=== PATIENT | female | born 1940 | race Caucasian/White ===

== ENCOUNTER 2021-03-31 11:07 | Inpatient (IN) | payer MEDICARE, SELFPAY ==
[2021-03-31] VITALS (54 sets, daily range): BP systolic 53–182; BP diastolic 38–105; PULSE 59–179; RESP 16–36; TEMP 37.1–37.3; O2SAT 83–100; BMI 27.4
--- NOTE | 2021-03-31 11:08 | ECG_ITS ---
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 Measurements Intervals [place] Rate: 178 P: OK: QRS: -48 QRSD: 124 T: 130 QT: 283 QTc: 488 Interpretive Statements ATRIAL FIBRILLATION WITH RAPID VENTRICULAR RESPONSE POSSIBLE RIGHT VENTRICULAR CONDUCTION DELAY [RSR (QR) IN V1/V2] LEFT ANTERIOR FASCICULAR BLOCK [QRS AXIS <= -45, QR IN I, RS IN II] POSSIBLE LEFT VENTRICULAR HYPERTROPHY [VOLTAGE CRITERIA PLUS LAE OR QRS WIDENING] PROBABLE LATERAL MYOCARDIAL INFARCTION , OF INDETERMINATE AGE [35 ms Q WAVE IN I/aVL/V5/V6] CRITICAL TEST RESULT No previous ECG available for comparison Electronically Signed On 03-31-2021 18:07:07 LOST CHARGE CARD CLERK by Marquise Horan M.D. [id number]
--- NOTE | 2021-03-31 11:23 | CTR_ITS ---
PROCEDURE INFORMATION: Exam: CT Head Without Contrast Exam date and time: 03/31/2021 11:23 AM Age: 80 years old Clinical indication: Altered mental status/memory loss; Patient HX: AMS TECHNIQUE: Imaging protocol: Computed tomography of the head without contrast. Radiation optimization: All CT scans at this facility use at least one of these dose optimization techniques: automated exposure control; mA and/or kV adjustment per patient size (includes targeted exams where dose is matched to clinical indication); or iterative reconstruction. COMPARISON: No relevant prior studies available. RADIATION DOSE METRICS: Total DLP (mGy-cm): 981.47 FINDINGS: Brain: No hemorrhage. Moderate diffuse cerebral atrophy. This appears particularly advanced within the hippocampal regions. No significant white matter disease. No mass effect. Cerebral ventricles: No ventriculomegaly. Paranasal sinuses: Opacified right maxillary sinus and sphenoid sinuses. Fluid levels in the left maxillary sinus and ethmoid sinuses. Mastoid air cells: Trace bilateral mastoid effusions. Bones/joints: Unremarkable. No acute fracture. Soft tissues: Unremarkable. CT/CT head wo con* [id number] IMPRESSION: 1. No acute intracranial abnormality. 2. Moderate diffuse cerebral atrophy. This appears particularly advanced within the hippocampal regions as is typically seen with dementia. 3. Multifocal sinusitis. 4. Trace bilateral mastoid effusions.
--- NOTE | 2021-03-31 11:23 | XR_ITS ---
WS: [id number] CHEST XRAY TECHNIQUE: Portable chest. CLINICAL INFORMATION: dyspnea COMPARISON: None. FINDINGS: Heart: Cardiomegaly. Aortic calcification. Cardiac pacer. Lungs: Patchy diffuse bilateral pulmonary infiltrates . No significant pleural fluid. Bones: Normal visualized bony structures. XR/XR chest 1V portable [id number] IMPRESSION: 1. Cardiomegaly. 2. Patchy diffuse bilateral pulmonary infiltrates. Recommend Correlation for p neumonia.
[2021-03-31 11:47] LABS: ABG PCO2 37.7 mmHg (35-45); ABG PH Result 7.41 (7.35-7.45); Alveolar-Arterial Oxygen Gradi 4.3 mmHg (5-10); Arterial Blood Gas Hematocrit 39.9 % (37-47); Base Excess ABG -0.3 mmol/L (-2.0-2.0); Blood Gas Allen Test Pos; Blood Gas Operator Identificat ED; Blood Gas Sample Site Radial, left; Blood Gas Sample Type Arterial; HCO3 ABG 24.1 mmol/L (22-26); HGB O2 Sat 92.5 % (95-100); Ionized Calcium Level - ABG 1.3 mmol/L (1.1-1.4); Methemoglobin 0.8 % (0.4-1.5); Oxygen Device SIMPLE MASK; Oxygen Saturation ABG 94.2; PO2 ABG 70.5 mmHg (80.0-100.0); Potassium Level - ABG 3.5 mmol/L (3.5-5.0)
--- NOTE | 2021-03-31 12:01 | ED_ITS ---
HPI - General Adult General: Chief complaint: Arrhythmia/Palpitations Stated complaint: AFIB WITH RVR Time Seen by Provider: 03/31/21 11:08 History of Present Illness: 80F w/ hx of dementia, afib, positive covid test 1 week ago, full code presenting to the ED with respiratory distress and fast heart rate emergency room. Per EMS, patient was noted to be in A. fib with RVR today and satting at 78 to 79% on room air. Patient was then started on oxygen. In the emergency room patient was placed on 6 L of oxygen and is noted to be in afib with RVR to the 150s. Rest of history limited in cognitive status. Onset:Unknown Duration:ongoing Location:home Severity:severe Associated symptoms: Reports dyspnea Review of Systems General: Reports: ROS unobtainable due to mental status Card: Reports: other (tachycardia) Resp: Reports: dyspnea [facility] ED PFSH: Medical History Atrial fibrillation Dementia Pneumonia due to COVID-19 virus Social History Smoking and tobacco status: never smoked Alcohol intake: never Substance/Drug Use: never Physical Exam HENMT: COMMON NORMALS: atraumatic HEAD & SCALP: atraumatic MOUTH: moist mucous membranes abnormal Eye: COMMON NORMALS: EOMs intact bilaterally and conjunctivae normal CONJUNCTIVA: Yes conjunctivae normal Neck/C-Spine: COMMON NORMALS: full ROM and supple Resp: AUSCULTATION: other (coarse breath sounds) OTHER: +Coarse breath sounds bilaterally, mild increased work of breathing Cardio: RATE: Other (irregular irregular tachycardia) GI: COMMON NORMALS: Soft to palpation and non-tender PALPATION: Yes Soft to palpation Extremity: COMMON NORMALS: full ROM Neuro: SENSORIUM/ORIENTATION: Yes Orientation impaired and Yes somnolent OTHER: GCS of 11, unable to assess neuro exam given altered mental status, arousable to sternal rub, not following commands Psych: OTHER: Unable to assess due to alterd mental status Course Vital Signs: Vital signs: Vital Signs Temperature 99.2 F 03/31/21 11:12 Pulse Rate 144 H 03/31/21 14:30 Respiratory Rate 22 H 03/31/21 12:19 Blood Pressure 102/78 03/31/21 14:30 Pulse Oximetry 88 L 03/31/21 14:30 MDM - General Adult Medical Decision Making 80-year-old female with history of COVID x1 week presenting to the emergency room with A. fib RVR and hypoxemic respiratory distress. On arrival, patient is noted to have coarse breath sounds bilaterally with mild retraction. Patient satting at 94% on 6 L of oxygen. Patient's heart rate was noted to be in the 160s to 180s initially. Patient received 50 mg of metoprolol IV, 1 L of IVF, 2g of magnesium, 6mg of Decadron, 200mg of remdesivir with significant improvement in symptoms. Currently on esmolol drip. Heart rate improved to the 120s to 130s. Pressure appears to be well maintained. Patient continues to be maintaining well on 7 L of oxygen satting at 92-95%. Patient was found to be uremic with BUN of 96 with Cr of 2.1 Patient will be admitted to hospital for hypoxemic respiratory distress, uremic encelopathy, and atrial fibrillation with RVR. Disposition: admission Lab Data : 03/31/21 11:42 03/31/21 11:42 Radiology Impressions Chest X-Ray 03/31/21 11:23 IMPRESSION: 1. Cardiomegaly. 2. Patchy diffuse bilateral pulmonary infiltrates. Recommend Correlation for pneumonia. Laboratory Results WBC 10.8 10^3/uL (4.0-10.0) H 03/31/21 11:42 RBC 4.47 10^6/uL (4.1-5.3) 03/31/21 11:42 Hgb 12.7 g/dL (11.5-15.3) 03/31/21 11:42 Hct 43.0 % (37.0-47.0) 03/31/21 11:42 MCV 96.2 fl (81-99) 03/31/21 11:42 MCH 28.4 pg (28.0-34.0) 03/31/21 11:42 MCHC 29.5 g/dL (30.0-36.0) L 03/31/21 11:42 RDW 15.2 % (12.1-15.1) H 03/31/21 11:42 Plt Count 198 10^3/cmm (130-400) 03/31/21 11:42 MPV 14.2 fL (7.4-10.4) H 03/31/21 11:42 Neut % (Auto) 93.0 % 03/31/21 11:42 Lymph % (Auto) 4.7 % 03/31/21 11:42 [place] % (Auto) 1.2 % 03/31/21 11:42 Eos % (Auto) 0.1 % 03/31/21 11:42 Baso % (Auto) 0.1 % 03/31/21 11:42 Neut # (Auto) 10.06 10^3/uL (1.8-7.7) H 03/31/21 11:42 Lymph # (Auto) 0.5 10^3/uL (0.8-4.8) L 03/31/21 11:42 [place] # (Auto) 0.1 10^3/uL (0.2-0.9) L 03/31/21 11:42 Eos # (Auto) 0.0 10^3/uL (0.0-0.8) 03/31/21 11:42 Baso # (Auto) 0.0 10^3/uL (0.0-0.1) 03/31/21 11:42 Nucleated RBC % (auto) 0.6 % 03/31/21 11:42 Nucleated RBCs # 0.1 /100WBC 03/31/21 11:42 PT 18.90 SECONDS (12.1-14.9) H 03/31/21 11:42 INR 1.54 (0.8-1.2) H 03/31/21 11:42 APTT 24.0 SECONDS (23.9-36.7) 03/31/21 11:42 Sodium 156 mmol/L (136-145) H 03/31/21 11:42 Potassium 3.6 mmol/L (3.5-5.1) 03/31/21 11:42 Chloride 117 mmol/L (98-107) H 03/31/21 11:42 Carbon Dioxide 20 mmol/L (22-29) L 03/31/21 11:42 Anion Gap 22.6 (5-19) H 03/31/21 11:42 BUN 92 mg/dL (8-23) H* 03/31/21 11:42 Creatinine 2.1 mg/dL (0.5-0.9) H 03/31/21 11:42 GFR Calculation Not Reportable 03/31/21 11:42 Glucose 114 mg/dL (65-115) 03/31/21 11:42 Calculated Osmolality 351 mOsm/kg (285-295) H 03/31/21 11:42 Lactate 2.0 mmol/L (0.5-2.2) 03/31/21 11:42 Calcium 8.9 mg/dL (8.5-10.5) 03/31/21 11:42 Troponin T Baseline 29 ng/L (0-10) H 03/31/21 11:42 C-Reactive Protein 598.7 mg/L (0.0-4.9) H 03/31/21 11:42 NT-Pro-B Natriuret Pep 11791 pg/mL (0-450) H 03/31/21 11:42 Procalcitonin 3.25 ng/mL (0-0.5) H 03/31/21 11:42 Imaging Data Other Imaging: Radiologist's impression: [address] [address] XRay Report Signed Patient: WALTER CROW Unit #: [id number] : 1940 Age/Sex: 80 / F ADM Date: 03/31/21 Loc: ER Room/Bed: Attending Dr: Ordering Provider/Ordering MD: Bea Valdez MD Date of Service: 03/31/21 Procedure(s): XR chest 1V portable [id number] Accession Number(s): [id number] Report Number: [id number] WS: [id number] CHEST XRAY TECHNIQUE: Portable chest. CLINICAL INFORMATION: dyspnea COMPARISON: None. FINDINGS: Heart: Cardiomegaly. Aortic calcification. Cardiac pacer. Lungs: Patchy diffuse bilateral pulmonary infiltrates . No significant pleural fluid. Bones: Normal visualized bony structures. XR/XR chest 1V portable [id number] IMPRESSION: ? 1.? Cardiomegaly. 2.? Patchy diffuse bilateral pulmonary infiltrates. Recommend Correlation for pneumonia. ? Dictated By: Yogi Calvo MD Signed By: Yogi Calvo MD Signed Date/Time: 03/31/21 1156 DD/ 1155 Critical Care Time Critical Care Time: Critical Care Time: Yes Total Critical Care Time: 35 Attestation: The high probability of a clinically significant, sudden or life threatening deterioration of the patient's cardiovascular and pulmonary system(s) required my full and direct attention, intervention and personal management. The critical care time is as shown. This time is in addition to time spent performing any r eported procedures but includes the following: [x] Data and vital sign review and interpretation [x] Patient assessment, examination and intervention [x] Documentation [x] Medication orders and management Discharge Plan Discharge Patient Disposition: Admitted As Inpatient Admit Provider: Monisha Carbajal Clinical Impression: Acute hypoxemic respiratory failure, Altered mental status, Atrial fibrillation with RVR, Uremic encephalopathy, CHF exacerbation Condition: Stable Coding Level of Care Code ED Head Sawyer for Angelica Verdin Exam Comprehensive
[2021-03-31] MEDS: metoprolol tartrate 1 mg/1 mL SDV 5 mL 5 MG IVP ×3 (12:03→12:41)
[2021-03-31] MEDS: sodium chloride 0.9% 1,000 ML 999 ML IV (12:10)
--- NOTE | 2021-03-31 12:10 | PC.NURSE ---
1000 mL fluids ordered for this patient. This nurse questioned Dr Valdez about administration of fluids to a pt Afib w/RVR and HR of 149. This nurse was instructed to administer 500 of the 1000mL at a rate of 500 mL/hr. This nurse is still uncomfortable with fluid administration until Afib is resolved.
[2021-03-31] MEDS: magnesium sulfate premix 2 GM/50 ML PIGGYBACK IV (12:24)
[2021-03-31] MEDS: dexamethasone 10 mg/mL INJ 6 MG IVP (12:35)
[2021-03-31 12:36] LABS: Basophils % 0.1 %; Eosinophils % 0.1 %; Hemoglobin 12.7 g/dL (11.5-15.3); Lymphocytes # 0.5 10^3/uL (0.8-4.8); Lymphocytes % 4.7 %; Mean Corpuscular HGB Conc 29.5 g/dL (30.0-36.0); Mean Corpuscular Hemoglobin 28.4 pg (28.0-34.0); Mean Corpuscular Volume 96.2 fl (81-99); Mean Platelet Volume 14.2 fL (7.4-10.4); Monocytes # 0.1 10^3/uL (0.2-0.9); Monocytes % 1.2 %; Neutrophils # 10.06 10^3/uL (1.8-7.7); Nucleated Red Blood Cells # 0.1 /100WBC; Nucleated Red Blood Cells % 0.6 %; Platelet Count 198 10^3/cmm (130-400); Red Blood Count 4.47 10^6/uL (4.1-5.3); Red Cell Distribution Width 15.2 % (12.1-15.1); White Blood Count 10.8 10^3/uL (4.0-10.0)
[2021-03-31] MEDS: remdesivir 200 MG in sodium chloride 0.9% (100 ml) 60 ML 100 MG IV (12:55)
[2021-03-31 13:19] LABS: INR 1.54 (0.8-1.2)
[2021-03-31 13:23] LABS: Troponin(5th) Baseline 29 ng/L (0-10)
[2021-03-31 13:30] LABS: NT Pro B Type Natriuretic Pept 10446 pg/mL (0-450); Procalcitonin 3.25 ng/mL (0-0.5); Slide Review Slide Review Perform
[2021-03-31 13:41] LABS: Calcium 8.9 mg/dL (8.5-10.5); Carbon Dioxide 20 mmol/L (22-29); Chloride 117 mmol/L (98-107); Glucose 114 mg/dL (65-115); Osmolality Calculated 351 mOsm/kg (285-295); Sodium 156 mmol/L (136-145)
[2021-03-31 13:55] LABS: Anion Gap 22.6 (5-19); Blood Urea Nitrogen 92 mg/dL (8-23); C Reactive Protein 598.7 mg/L (0.0-4.9); Potassium 3.6 mmol/L (3.5-5.1)
--- NOTE | 2021-03-31 14:04 | PM.HP ---
Providers/Chief Complaint Chief Complaint: AFIB WITH RVR History of Present Illness WALTER CROW is a 80 year old female who presented to the ER from shelter. Her chief complaint was hypoxia and rapid heart rate. I was called before work-up in the ED. Patient was in A. fib RVR heart rate in 140s, she was requiring 10 L oxygen mask, she was confused, extremely dehydrated. I made stat phone calls and spoke with her son. Son told me that she has advanced dementia at baseline, she cannot carry a decent conversation with anyone, sometimes she would wander in the hallways. In the ER she was given 1 L bolus, esmolol drip was initiated by the ER physician which dropped her blood pressure, later on I requested amiodarone after the bolus. I requested ER physician to cancel digoxin because of high creatinine. She did not receive digoxin. Patient is not able to provide any history however she was able to tell me that she is in the hospital. She was extremely fatigued and lethargic. Later on work-up showed mild hypokalemia, mild leukocytosis, abnormal TSH, requested D-dimer, free T4, ABG showed PO2 70 on 10 L oxygen mask Sodium 156, 3 to 4 L water deficit Abnormal uremia with high creatinine Lactate is normal downtrending troponin no ischemic or infarctive change on EKG BNP 10,000 CRP 598 clinically patient was dehydrated Procalcitonin 3.1 Covid PCR positive In the ER she received metoprolol, magnesium, Decadron, esmolol drip, Review of Systems General: Reports: ROS unobtainable due to medical condition PFSH Acute PFSH: Medical History Atrial fibrillation Dementia DNR (do not resuscitate) Pneumonia due to COVID-19 virus Social History Smoking and tobacco status: never smoked Alcohol intake: never Substance/Drug Use: never Vitals/I&O/Wt Last Vital Signs Temp 99.2 F 03/31/21 11:12 Pulse 124 H 03/31/21 13:30 Resp 22 H 03/31/21 12:19 BP 118/87 03/31/21 13:30 Pulse Ox 92 03/31/21 13:30 03/30/21 03/31/21 03/31/21 22:59 06:59 14:59 Intake Total 50 / 50 Balance 50 / 50 Weight last 48 hrs Weight 77.111 kg Physical Exam Narrative: Patient is confused at baseline Clinically looks dehydrated I do not see any active signs of fluid overload Requiring 10 L oxygen mask Oriented to herself She was able to tell me that she is in the hospital I did not appreciate any slurring of speech Able to move her extremities No audible stridor or wheezing Abdomen soft no signs of peritonitis Lower extremity, I did not appreciate edema Urinary Catheter Management: Nelson: Cath Placed During This Visit: yes Urinary Catheter Date of Insertion: 03/31/21 Urinary Catheter Time of Insertion: 00:35 Data : 03/31/21 11:42 03/31/21 11:42 Micro: Microbiology 03/31/21 11:54 Blood Culture - Preliminary Blood SPECIMEN COLLECTED 03/31/21 11:42 Blood Culture - Preliminary Blood SPECIMEN COLLECTED A&P Assessment and plan (1) Pneumonia due to COVID-19 virus: Status: Acute (2) Atrial fibrillation: Status: Acute (3) Dementia: Status: Acute (4) COVID: Status: Acute (5) Acute hypoxemic respiratory failure: Status: Acute (6) Altered mental status: Status: Acute (7) Atrial fibrillation with RVR: Status: Acute (8) DNR (do not resuscitate): Status: Acute (9) Hypernatremia: Status: Acute (10) Dehydration: Status: Acute Plan COVID-19 related hypoxia Currently on 10 L Oxymizer Continue Decadron and remdesivir A. fib RVR Concern for PE related to COVID-19 Start heparin drip Esmolol dropped her blood pressure currently on amio gtt Son does not want cardioversion in case of any hemodynamic instability Currently patient is on levo at 18 Tachyarrhythmia related hypotension DNR/DNI, no cardioversion, manage medically Currently on heparin drip and amiodarone Check echo in the morning, BNP is high but clinically she is dry, I would avoid diuretics for now Dehydration with hypernatremia 3 to 4 L water deficit I am starting D5 at lower rate, check BMP at 10:00 D5 at 75 mill per hour Uremia with TAPAN Related to dehydration Nelson catheter, monitor output Hypokalemia: Keep potassium above 4 and mag above 2 Mag was given in the ER as well TSH abnormal sick euthyroid? Check free T4 Baseline severe dementia DNR/DNI Keep her on full liquid diet DVT prophylaxis covered with heparin GTT Guarded prognosis Family meeting done today Total time spent 1 hour Attestations Medical Necessity Statement*: Need ICU management Time Spent in Patient Care: 60 minutes Coding Level of Care Code Acute Apartment Manager for Chg Fwd Diagnoses Pneumonia due to COVID-19 virus U07.1; J12.82 Atrial fibrillation I48.91 Dementia F03.90 COVID U07.1 Acute hypoxemic respiratory failure J96.01 Altered mental status R41.82 Atrial fibrillation with RVR I48.91 DNR (do not resuscitate) Z66 Hypernatremia E87.0 Dehydration E86.0
--- NOTE | 2021-03-31 14:24 | PC.NURSE ---
PER PROVIDER, RESUSCITATION ORDER IS MEDS ONLY. COMFORT CARE IF NECESSARY.
[2021-03-31] MEDS: esmolol drip 2,500 MG/250 ML PREMIX 23.13 MG IV (14:53)
[2021-03-31] MEDS: sodium chloride 0.9% 500 ML IV (14:53)
[2021-03-31 15:05] LABS: Troponin 5 2HR 28.02 ng/L (0-10)
[2021-03-31 15:16] LABS: Troponin 5 2HR Delta -0.98 ABS# (0-10)
[2021-03-31 15:26] LABS: Adenovirus Not Detected (NOT DETECT); Chlamydia Pneumoniae Not Detected (NOT DETECT); Coronavirus 229E,HKU1,NL63,OC4 Not Detected (NOT DETECT); Human Metapneumovirus Not Detected (NOT DETECT); Human Rhinovirus/Enterovirus Not Detected (NOT DETECT); Influenza A Not Detected (NOT DETECT); Influenza A H1 Not Detected (NOT DETECT); Influenza A H1-2009 Not Detected (NOT DETECT); Influenza A H3 Not Detected (NOT DETECT); Influenza B Not Detected (NOT DETECT); Mycoplasma Pneumoniae Not Detected (NOT DETECT); Parainfluenza Virus Type 1 Not Detected (NOT DETECT); Parainfluenza Virus Type 2 Not Detected (NOT DETECT); Parainfluenza Virus Type 3 Not Detected (NOT DETECT); Parainfluenza Virus Type 4 Not Detected (NOT DETECT); Respiratory Syncytial Virus A Not Detected (NOT DETECT); Respiratory Syncytial Virus B Not Detected (NOT DETECT); SARS-COV-2 Detected (NOT DETECT)
[2021-03-31 17:00] LABS: Procalcitonin 3.13 ng/mL (0-0.5); Thyroid Stimulating Hormone 0.22 uIU/mL (0.27-4.20)
[2021-03-31 17:11] LABS: Magnesium 3.9 mg/dL (1.7-2.3)
[2021-03-31] MEDS: amiodarone 50 mg/mL SDV 3 mL 150 MG IVP (18:17)
--- NOTE | 2021-03-31 19:25 | PC.NURSE ---
Admit Note Patient admitted to ICU from ER via [facility]. Covering service notified. Patient presents with altered mental status, afib with rvr and covid positive. Orders reviewed & will continue to monitor. Patient and/or solar sales representative and assessor oriented to environment, equipment, and informed of the following as found in the admission booklet: patient rights & responsibilities, visitor policy, hand and respiratory hygiene practice. Other education includes: []. Patient and/or solar sales representative and assessor unable to comprehend d/t pt having dementia. Pt lives at [facility] in their memory care unit. Pt brought to room on 10L simple mask, HR irregular in the 160's, MAP of 62. Phys was notified and orders placed to start the necessary medications. Pt does have redness to sacrum that is blanchable.
[2021-03-31 19:45] LABS: Troponin 5 6HR 28.33 ng/L (0-10)
[2021-03-31 19:49] LABS: Troponin 5 6HR Delta -0.67 ng/L (0-12)
[2021-03-31] MEDS: lidocaine 1% 5 ML in potassium chloride premix 100 ML 25 ML IV (20:03)
[2021-03-31] MEDS: dextrose 5% 1,000 ML 75 ML IV (20:07)
[2021-03-31] MEDS: heparin drip 25,000 UNIT/500 ML PREMIX 21.59 UNIT IV (20:13)
[2021-03-31 22:07] LABS: D Dimer 7.16 ug/mIFEU (0-0.59)
[2021-03-31 22:08] LABS: Anion Gap 20.4 (5-19); Calcium 8.6 mg/dL (8.5-10.5); Carbon Dioxide 22 mmol/L (22-29); Chloride 119 mmol/L (98-107); Glucose 195 mg/dL (65-115); Osmolality Calculated 359 mOsm/kg (285-295); Potassium 4.4 mmol/L (3.5-5.1); Sodium 157 mmol/L (136-145)
[2021-03-31 22:11] LABS: Blood Urea Nitrogen 97 mg/dL (8-23)
[2021-03-31 22:15] LABS: Free T4 Free Thyroxine 1.45 ng/dL (0.82-1.77)
[2021-03-31] MEDS: dextrose 5% 1,000 ML 100 ML IV (22:36)
[2021-04-01] VITALS (99 sets, daily range): BP systolic 82–140; BP diastolic 50–113; PULSE 91–136; RESP 16–38; TEMP 36–37.2; O2SAT 80–99
--- NOTE | 2021-04-01 | USCV_ITS ---
Transthoracic Echo WALTER CROW Age: 80 Gender: F : 1940 Exam Date: 04/01/2021 02:03 Ordering Phys: Monisha Carbajal MD Technologist: CODY [place] [facility] [place]: Atrial fibrillation BP: 86 / 66 HR: 133 Rhythm: Atrial fibrillation Technical Quality: Suboptimal MEASUREMENTS (Male / Female) Normal Values 2D ECHO LV Diastolic Diameter PLAX 3.3 cm 4.2 - 5.9 / 3.9 - 5.3 cm LV Systolic Diameter PLAX 2.3 cm IVS Diastolic Thickness 1.2 cm 0.6 - 1.0 / 0.6 - 0.9 cm IVS Systolic Thickness 1.4 cm LVPW Diastolic Thickness 1.5 cm 0.6 - 1.0 / 0.6 - 0.9 cm LVPW Systolic Thickness 1.4 cm LVOT Diameter 1.7 cm LV Ejection Fraction 2D Teich 60.7 % LA Diameter 4.1 cm LA Width 3.1 cm LA Height 5.3 cm RA Width 3.2 cm RA Height 3.7 cm Aorta at Sinotubular Diameter 2.5 cm M-MODE Aortic Annulus Diameter 3.1 cm LA Ao Ratio MM 1.6 DOPPLER AV Peak Velocity 124.0 cm/s LVOT Peak Velocity 94.0 cm/s AV Area Cont Eq vti 2.0 cm squared AV Area Cont Eq pk 1.7 cm squared TR Peak Velocity 254.5 cm/s TR Peak Gradient 25.9 mmHg TR Mean Velocity 172.6 cm/s TR Mean Gradient 14.2 mmHg TR Velocity Time Integral 77.7 cm TV Peak E Velocity 97.0 cm/s Right Atrial Pressure 8.0 mmHg Pulmonary Artery Systolic Pressu 33.9 mmHg PV Peak Velocity 77.0 cm/s RV Acceleration Time 0.1 s RV Ejection Time 0.3 s RV AcT/ET 0.3 FINDINGS Left Ventricle Normal left ventricular cavity size. Moderately decreased left ventricular systolic function. Left ventricular ejection fraction is estimated at 35-40 %. This study is inadequate for estimation of regional wall motion abnormality. Rhythm precludes evaluation of diastolic function. Right Ventricle Right ventricle not well visualized. Right ventricular systolic pressure 33.9 mmHg. Right Atrium Right atrium not well visualized. Left Atrium Mildly increased left atrial size. Mitral Valve Mildly thickened mitral valve. No mitral valve stenosis. Mild mitral valve regurgitation. Aortic Valve Aortic valve not well visualized. No aortic valve stenosis. No aortic valve regurgitation. Tricuspid Valve Structurally normal tricuspid valve. Mild tricuspid valve regurgitation. Pulmonic Valve Pulmonic valve not well visualized. Trace pulmonary valve regurgitation. Pericardium No pericardial effusion. Aorta Normal-sized aortic root. CONCLUSIONS 1. Normal left ventricular cavity size. Moderately decreased left ventricular systolic function. Left ventricular ejection fraction is estimated at 35-40 %. This study is inadequate for estimation of regional wall motion abnormality. Interpretation is limited by rapid heart rate. 2. Repeat study once heart rate is better controlled with echo contrast is recommended. Vane Epps MD (Electronically Signed) Final Date: 01 April 2021 14:53 S
[2021-04-01] MEDS: LORazepam 2 mg/mL INJ 1 mL 0.5 MG IVP (03:03)
[2021-04-01 03:36] LABS: Hematocrit 41.9 % (37.0-47.0); Hemoglobin 12.2 g/dL (11.5-15.3); Mean Corpuscular HGB Conc 29.1 g/dL (30.0-36.0); Mean Corpuscular Hemoglobin 28.2 pg (28.0-34.0); Mean Platelet Volume 13.9 fL (7.4-10.4); Platelet Count 227 10^3/cmm (130-400); Red Blood Count 4.32 10^6/uL (4.1-5.3); Red Cell Distribution Width 15.4 % (12.1-15.1); White Blood Count 12.8 10^3/uL (4.0-10.0)
[2021-04-01 03:47] LABS: Partial Thromboplastin Time 37.2 SECONDS (23.9-36.7)
[2021-04-01 03:57] LABS: Alanine Aminotransferase 21 U/L (0-33); Albumin Level 2.5 g/dL (3.5-5.2); Alkaline Phosphatase 19 IU/L (35-105); Anion Gap 19.2 (5-19); Aspartate Amino Transferase 42 U/L (0-32); Calcium 9.5 mg/dL (8.5-10.5); Carbon Dioxide 20 mmol/L (22-29); Chloride 118 mmol/L (98-107); Globulin 4.5 g/dL (1.3-4.6); Glucose 235 mg/dL (65-115); Magnesium 3.5 mg/dL (1.7-2.3); Osmolality Calculated 357 mOsm/kg (285-295); Potassium 4.2 mmol/L (3.5-5.1); Sodium 153 mmol/L (136-145)
[2021-04-01 04:01] LABS: Slide Review Slide Review Perform
[2021-04-01 04:03] LABS: Absolute Neutrophil 12.4 10^3/cmm (1.4-6.5); Absolute Segmented Neutrophil 9.9 10/cmm (1.6-7.1); Band Neutrophils Absolute 2.6 10^3/cmm (0.0-1.2); Eosinophils 0 %; Lymphocytes 1 %; Lymphocytes Absolute 0.4 10^3/cmm (1.2-3.4); Platelet Estimate Normal (Normal); Segmented Neutrophils 77 %; Total Cells Counted 100 (0-100)
[2021-04-01 04:08] LABS: Blood Urea Nitrogen 107 mg/dL (8-23)
[2021-04-01 04:09] LABS: C Reactive Protein 440.7 mg/L (0.0-4.9)
[2021-04-01 04:11] LABS: ABG PCO2 48.2 mmHg (35-45); ABG PH Result 7.29 (7.35-7.45); Arterial Blood Gas Hematocrit 38.4 % (37-47); Blood Gas Allen Test Pos; Blood Gas Sample Site Radial, right; Blood Gas Sample Type Arterial; HCO3 ABG 22.9 mmol/L (22-26); Oxygen Device SIMPLE MASK; PO2 ABG 83.2 mmHg (80.0-100.0)
[2021-04-01] MEDS: cefTRIAXone 1,000 MG in sodium chloride 0.9% (plus) 50 ML 100 MG IV (08:33)
[2021-04-01 08:52] LABS: ABG PCO2 43.1 mmHg (35-45); ABG PH Result 7.33 (7.35-7.45); Arterial Blood Gas Hematocrit 36.7 % (37-47); Base Excess ABG -3.5 mmol/L (-2.0-2.0); Blood Gas Allen Test Pos; Blood Gas Operator Identificat CAK; Blood Gas Sample Site Brachial, left; Blood Gas Sample Type Arterial; HCO3 ABG 22.5 mmol/L (22-26); Oxygen Device SIMPLE MASK; PO2 ABG 83.3 mmHg (80.0-100.0)
--- NOTE | 2021-04-01 10:47 | PC.PHAR ---
pt is from [facility]trisha nurse from [facility] sent pts mar
[2021-04-01 11:00] LABS: Fibrinogen 823 mg/dL (174-498); Partial Thromboplastin Time 40.6 SECONDS (23.9-36.7)
[2021-04-01 11:11] LABS: D Dimer 4.57 ug/mIFEU (0-0.59)
[2021-04-01] MEDS: dexamethasone 10 mg/mL INJ 6 MG IVP (11:30)
[2021-04-01] MEDS: heparin 5,000 unit/mL INJ 1 mL IV (11:30)
--- NOTE | 2021-04-01 13:17 | P.PN_ITS ---
Subjective Subjective: Patient is very agitated, started Precedex, A. fib RVR heart rate in 120s, on amnio drip and levo at 8 Mild leukocytosis, no febrile events Hypoxia improved, currently on 7 L nasal cannula Oriented to herself High D-dimer, abnormal coagulation profile, requested DIC panel, no significant drop in hemoglobin Creatinine 2.2 Sodium 153 BUN has worsened Lactic 2.0 magnesium 3.5 High procalcitonin 3.1 Free T4 is normal, abnormal TSH noted Currently on heparin drip Vitals/I&O/Wt Last Vital Signs Temp 98.7 F 04/01/21 09:00 Pulse 121 H 04/01/21 10:00 Resp 21 H 04/01/21 10:00 BP 112/79 04/01/21 10:00 Pulse Ox 95 04/01/21 10:00 03/31/21 04/01/21 04/01/21 22:59 06:59 14:59 Intake Total 1286.636 / 1336.636 677.101 / 2013.737 236.745 / 236.745 Output Total 300 / 300 250 / 550 Balance 986.636 / 1036.636 427.101 / 1463.737 236.745 / 236.745 Weight last 48 hrs Weight 72.348 kg Weight 77.111 kg Weight 77.111 kg Physical Exam Narrative: Patient is oriented to herself Nonfocal neuro exam I do not appreciate crackles however she does have productive cough and a lot of secretion upper airway Clinically does not look fluid overloaded Nondistended abdomen Currently on 7 L nasal cannula Oriented to herself She is not following commands Able to move all 4 extremities on her own Nelson catheter draining concentrated urine Urinary Catheter Management: Nelson: Cath Placed During This Visit: yes Reason for Continuing Indwelling Catheter: Accurate Measurement of Urinary Output in Critically Ill Patients Urinary Catheter Date of Insertion: 03/31/21 Urinary Catheter Time of Insertion: 00:35 Data : 04/01/21 03:01 04/01/21 03:01 Micro: Microbiology 03/31/21 11:54 Blood Culture - Preliminary Blood NEGATIVE TO DATE 03/31/21 11:42 Blood Culture - Preliminary Blood NEGATIVE TO DATE A&P Assessment and plan (1) Diarrhea: Status: Acute (2) Delirium: Status: Acute (3) DNR (do not resuscitate): Status: Acute (4) Hypernatremia: Status: Acute (5) Dehydration: Status: Acute (6) Uremic encephalopathy: Status: Acute (7) Pneumonia due to COVID-19 virus: Status: Acute (8) Dementia: Status: Acute (9) Atrial fibrillation: Status: Acute (10) Altered mental status: Status: Acute (11) Atrial fibrillation with RVR: Status: Acute (12) TAPAN (acute kidney injury): Status: Acute Plan Hypoxia related to COVID-19 Currently patient is on 7 L nasal cannula Continue remdesivir and Decadron Acute delirium with underlying dementia Due to underlying dehydration and metabolic encephalopathy Started Precedex for agitation A. fib RVR continue amiodarone and start 400 mg twice daily p.o. after we finished 24 hours on amiodarone gtt., Tachyarrhythmia related hypotension, heart rate is staying in 120s, currently on amnio and Levophed Heparin drip Positive DIC however no active signs of stroke or significant drop in hemoglobin noted, no active bleeding, this could be COVID-19 related Worsening uremia however creatinine has stayed stable TAPAN No drop in hemoglobin Most likely this is catabolic state of her underlying multiple comorbid conditions Will request CT abdomen pelvis Continue ceftriaxone Free T4 is normal abnormal TSH noted Dehydration related hyper natremia Sodium has improved to mild extent I will continue D5 at 50 mL/h, keep an eye on cardiopulmonary status avoid fluid overload state DNR/DNI Severe baseline dementia Continue full liquid diet Guarded prognosis Diarrhea: Check C. difficile Attestations Medical Necessity Statement*: Continue ICU management Coding Level of Care Code Acute Plastic Fixture Builder for [facility] Diagnoses Diarrhea R19.7 Delirium R41.0 DNR (do not resuscitate) Z66 Hypernatremia E87.0 Dehydration E86.0 Uremic encephalopathy G93.49; N19 Pneumonia due to COVID-19 virus U07.1; J12.82 Dementia F03.90 Atrial fibrillation I48.91 Altered mental status R41.82 Atrial fibrillation with RVR I48.91 TAPAN (acute kidney injury) N17.9
--- NOTE | 2021-04-01 13:25 | CTR_ITS ---
PROCEDURE INFORMATION: Exam: CT Abdomen And Pelvis Without Contrast Exam date and time: 04/01/2021 1:25 PM Age: 80 years old Clinical indication: Abnormal findings; Abnormal lab test; Abnormal kidney function lab tests and elevated wbc; Patient HX: Elevated wbc and creatinine. No history of kidney disease. Covid positive. ; Additional info: Uremia TECHNIQUE: Imaging protocol: Computed tomography of the abdomen and pelvis without contrast. Radiation optimization: All CT scans at this facility use at least one of these dose optimization techniques: automated exposure control; mA and/or kV adjustment per patient size (includes targeted exams where dose is matched to clinical indication); or iterative reconstruction. COMPARISON: CR XR chest 1V portable [id number] 03/31/2021 11:48 AM RADIATION DOSE METRICS: Total DLP (mGy-cm): 1878.52 FINDINGS: Tubes, catheters and devices: Pacer leads end within the heart. The urinary bladder is decompressed by a catheter. Pleural spaces: Extensive patchy infiltrates are present in both lower lobes along with a small right pleural effusion. Heart: There are heavy calcified plaques in the left coronary arteries. Liver: Normal. No mass. Gallbladder and bile ducts: The gallbladder is surgically absent. Pancreas: Normal. No ductal dilation. Spleen: Normal. No splenomegaly. Adrenal glands: Normal. No mass. Kidneys and ureters: Normal. No hydronephrosis. No perinephric stranding. Stomach and bowel: Scattered distal colonic diverticula are not inflamed. Appendix: No evidence of appendicitis. Intraperitoneal space: Unremarkable. No free air. No significant fluid collection. Vasculature: Unremarkable. No abdominal aortic aneurysm. Lymph nodes: Unremarkable. No enlarged lymph nodes. Urinary bladder: Unremarkable as visualized. Reproductive: The uterus is absent and the ovaries are not seen. Bones/joints: There are chronic degenerative changes in the lower lumbar facets and discs. Soft tissues: Unremarkable. CT/CT abdomen pelvis wo con [id number] IMPRESSION: 1. No acute abdominopelvic findings. 2. Multifocal pneumonia with right pleural effusion. 3. Other chronic findings as described
[2021-04-01] MEDS: norepinephrine 8 MG in dextrose 5 % 500 ML 22.86 MG IV (15:23)
[2021-04-01] MEDS: dextrose 5% 1,000 ML 100 ML IV (15:54)
[2021-04-01] MEDS: heparin drip 25,000 UNIT/500 ML PREMIX 27.7 UNIT IV (15:58)
[2021-04-01 16:54] LABS: Add Urine Microscopic? YES; Bilirubin Urine Neg (Negative); Blood Urine 2+ (Negative); Glucose Urine UA Norm (Normal); Ketones Urine Negative (Negative); Leukocyte Esterase Urine Negative (Negative); Nitrate Urine Negative (Negative); Protein Urine Neg (Negative); Specific Gravity, Urine 1.015 (1.005-1.030); Urine Appearance Clear (CLEAR); Urine Color Yellow (Yellow); Urobilinogen Urine 1 mg/dL (Negative); pH Urine 5 (5-7)
[2021-04-01 16:57] LABS: Add Urine Culture? No; Bacteria Urine 1+ /hpf; Coarse Granular Casts Urine 0-4 /lpf; Fine Granular Casts Urine 0-4 /lpf; RBC Urine 0-4 /hpf (0-2); Squamous Epithelial Cell Urine 0-4 /hpf (0-5); WBC Urine 0-4 /hpf (0-5)
[2021-04-01 17:28] LABS: Bacillus cereus group Not Detected (NOT DETECT); Bacillus subtillis group Not Detected (NOT DETECT); Corynebacterium Not Detected (NOT DETECT); Cutibacterium acnes (P.acnes) Not Detected (NOT DETECT); Enterococcus Detected (NOT DETECT); Enterococcus faecalis Detected (NOT DETECT); Enterococcus faecium Not Detected (NOT DETECT); Lactobacillus species Not Detected (NOT DETECT); Listeria Not Detected (NOT DETECT); Listeria monocytogenes Not Detected (NOT DETECT); Micrococcus Not Detected (NOT DETECT); Pan Candida Not Detected (NOT DETECT); Pan Gram-Negative Not Detected (NOT DETECT); Staphylococcus epidermidis Not Detected (NOT DETECT); Staphylococcus lugdunensis Not Detected (NOT DETECT); Staphylococcus species Not Detected (NOT DETECT); Streptococcus agalactiae Not Detected (NOT DETECT); Streptococcus anginosus group Not Detected (NOT DETECT); Streptococcus pneumoniae Not Detected (NOT DETECT); Streptococcus pyogenes Not Detected (NOT DETECT); Streptococcus species Not Detected (NOT DETECT); vanA Not Detected ` (NOT DETECT); vanC Not Detected (NOT DETECT)
[2021-04-01] MEDS: remdesivir 100 MG in sodium chloride 0.9% (100 ml) 100 ML IV (17:52)
[2021-04-01] MEDS: vancomycin 1,000 MG in sodium chloride 0.9% 250 ML 250 MG IV (20:10)
[2021-04-01 21:05] LABS: Partial Thromboplastin Time 79.4 SECONDS (23.9-36.7)
[2021-04-02] VITALS (98 sets, daily range): BP systolic 74–124; BP diastolic 46–96; PULSE 86–149; RESP 15–40; TEMP 36.7–36.8; O2SAT 82–96
[2021-04-02] MEDS: dextrose 5% 1,000 ML 50 ML IV (02:53)
[2021-04-02 03:33] LABS: Basophils # 0.1 10^3/uL (0.0-0.1); Basophils % 0.4 %; Hematocrit 37.9 % (37.0-47.0); Hemoglobin 10.9 g/dL (11.5-15.3); Lymphocytes # 0.5 10^3/uL (0.8-4.8); Lymphocytes % 4.1 %; Mean Corpuscular HGB Conc 28.8 g/dL (30.0-36.0); Mean Corpuscular Hemoglobin 28.3 pg (28.0-34.0); Mean Corpuscular Volume 98.4 fl (81-99); Mean Platelet Volume 14.1 fL (7.4-10.4); Monocytes # 0.2 10^3/uL (0.2-0.9); Monocytes % 1.3 %; Neutrophils # 10.59 10^3/uL (1.8-7.7); Neutrophils % 93.3 %; Nucleated Red Blood Cells # 0.1 /100WBC; Nucleated Red Blood Cells % 0.4 %; Platelet Count 142 10^3/cmm (130-400); Red Blood Count 3.85 10^6/uL (4.1-5.3); Red Cell Distribution Width 14.9 % (12.1-15.1); White Blood Count 11.4 10^3/uL (4.0-10.0)
[2021-04-02 03:53] LABS: Partial Thromboplastin Time 72.5 SECONDS (23.9-36.7)
[2021-04-02 03:54] LABS: Anion Gap 14.9 (5-19); Calcium 7.9 mg/dL (8.5-10.5); Carbon Dioxide 20 mmol/L (22-29); Chloride 112 mmol/L (98-107); Glucose 238 mg/dL (65-115); Osmolality Calculated 331 mOsm/kg (285-295); Potassium 3.9 mmol/L (3.5-5.1); Sodium 143 mmol/L (136-145)
[2021-04-02 04:13] LABS: Slide Review Slide Review Perform
[2021-04-02 04:26] LABS: Blood Urea Nitrogen 88 mg/dL (8-23)
[2021-04-02] MEDS: bumetanide 0.25 mg/mL SDV 4 mL 1 MG IVP (08:37)
[2021-04-02] MEDS: cefTRIAXone 1,000 MG in sodium chloride 0.9% (plus) 50 ML 100 MG IV (08:38)
[2021-04-02 09:13] LABS: Partial Thromboplastin Time 66.3 SECONDS (23.9-36.7)
[2021-04-02] MEDS: heparin drip 25,000 UNIT/500 ML PREMIX 26.22 UNIT IV (11:51)
[2021-04-02] MEDS: dexamethasone 10 mg/mL INJ 6 MG IVP (11:52)
[2021-04-02] MEDS: ciprofloxacin 0.3% Op Soln 2.5 mL Btl 1 DROP EYE-BOTH ×3 (14:56→21:42)
--- NOTE | 2021-04-02 16:26 | PM.PN ---
Subjective Subjective: Patient was seen and examined this morning in the ICU, today she seems to be more awake and responding appropriately to my questions D5 discontinued On levo at 2 5 L nasal cannula Adequate urine output Creatinine improving Hyper natremia improved No episodes of fever Blood culture positive with Enterococcus faecalis Blood culture repeated today MRSA nares negative Vitals/I&O/Wt Last Vital Signs Temp 98.1 F 04/02/21 13:00 Pulse 96 04/02/21 13:00 Resp 28 H 04/02/21 16:01 BP 103/64 04/02/21 16:01 Pulse Ox 85 L 04/02/21 11:00 04/02/21 04/02/21 04/02/21 06:59 14:59 22:59 Intake Total 1000.000 / 3117.037 337.032 / 337.032 Output Total 600 / 1400 Balance 400.000 / 1717.037 337.032 / 337.032 Weight last 48 hrs Weight 72.348 kg Weight 77.111 kg Physical Exam Narrative: Patient laying supine Clinically looks dehydrated Mentation slightly better Able to move her upper and lower extremities Grossly no neurological deficit Able to answer my questions appropriately Baseline dementia On 5 L cannula Noticed crackles on lung auscultation Abdomen soft Legs without edema Urinary Catheter Management: Nelson: Cath Placed During This Visit: yes Reason for Continuing Indwelling Catheter: Accurate Measurement of Urinary Output in Critically Ill Patients Urinary Catheter Date of Insertion: 03/31/21 Urinary Catheter Time of Insertion: 00:35 Data : 04/02/21 02:52 04/02/21 02:52 Micro: Microbiology 04/02/21 08:06 Blood Culture - Preliminary Blood SPECIMEN COLLECTED 04/02/21 08:05 Blood Culture - Preliminary Blood SPECIMEN COLLECTED 03/31/21 11:54 Blood Culture - Preliminary Blood Enterococcus faecalis 03/31/21 11:42 Blood Culture - Preliminary Blood Enterococcus faecalis 03/31/21 21:14 MRSA Culture - Final Nose A&P Assessment and plan (1) Pneumonia due to COVID-19 virus: Status: Acute (2) Uremic encephalopathy: Status: Acute (3) Dehydration: Status: Acute (4) Hypernatremia: Status: Acute (5) DNR (do not resuscitate): Status: Acute (6) Diarrhea: Status: Acute (7) Delirium: Status: Acute (8) TAPAN (acute kidney injury): Status: Acute (9) Atrial fibrillation: Status: Acute (10) Acute hypoxemic respiratory failure: Status: Acute (11) Altered mental status: Status: Acute (12) Bacteremia: Status: Acute (13) CHF exacerbation: Status: Acute Plan Hypoxia related to COVID-19 Currently doing well on 5 L nasal cannula I will continue heparin Continue Decadron and remdesivir as well Acute delirium with underlying dementia It is multifactorial Sepsis, metabolic Some improvement noticed today Dehydration: Hyponatremia: Improved with D5, D5 IV fluid discontinued TAPAN related to sepsis Improvement in creatinine noted with IV diuretics, her creatinine worsened with IV fluids CHF acute exacerbation Systolic low EF heart failure exacerbation It is acute Likely related to NSTEMI Echo reviewed Currently on heparin drip Son decided against any intervention Septic shock present on admission Secondary to bacteremia Most likely source is GI, she experienced diarrhea as well, rule out C. difficile Enterococcus faecalis Continue broad-spectrum antibiotics Her symptoms worsened with IV fluids with underlying low ejection fraction Titrate off levo A. fib without RVR today Discontinue amiodarone gtt once she is able to take p.o. regimen Normal free T4 DNR/DNI Baseline dementia Hernandez diet to mechanical soft Guarded prognosis Attestations Medical Necessity Statement*: Plan to transfer her out of ICU by tomorrow Time Spent in Patient Care: 30 minutes Coding Level of Care Code Acute Telesales Agent for g Fwd Diagnoses Pneumonia due to COVID-19 virus U07.1; J12.82 Uremic encephalopathy G93.49; N19 Dehydration E86.0 Hypernatremia E87.0 DNR (do not resuscitate) Z66 Diarrhea R19.7 Delirium R41.0 TAPAN (acute kidney injury) N17.9 Atrial fibrillation I48.91 Acute hypoxemic respiratory failure J96.01 Altered mental status R41.82 Bacteremia R78.81 CHF exacerbation I50.9
[2021-04-02 16:38] LABS: Partial Thromboplastin Time 59.8 SECONDS (23.9-36.7)
[2021-04-02] MEDS: bumetanide 0.25 mg/mL SDV 10 mL 1 MG IVP ×2 (17:36→17:37)
[2021-04-02] MEDS: remdesivir 100 MG in sodium chloride 0.9% (100 ml) 100 ML IV (17:38)
--- NOTE | 2021-04-02 18:32 | PC.NURSE ---
Shift Note Frequent safety and comfort rounds continue. Orders and/or nursing care completed as indicated. Patient monitored for response to intervention and treatment(s). Education provided includes oxygen safety. Patient and/or hvac sales representative not able comprehend. Will continue to monitor. Pt is still confused and at times is oriented to self. -Output of 1350. -Pt refused PO medicines. -Levo is on at 4 and amio at 0.5.
[2021-04-02 21:08] LABS: Partial Thromboplastin Time 48.6 SECONDS (23.9-36.7)
[2021-04-03] VITALS (84 sets, daily range): BP systolic 77–135; BP diastolic 52–91; PULSE 87–143; RESP 13–45; TEMP 36.3; O2SAT 89–95
--- NOTE | 2021-04-03 03:15 | PC.NURSE ---
Lab at the bedside to draw morning labs, but was unable to get blood. I attempted to draw blood twice and ASPEN Moran attempted to draw blood twice using ultrasound without any success. At 0355, Dr. Mohamud notified. Telephone orders read back for RT to attempt to draw blood. At 0445 RT attempted to draw blood but was also unsuccessful. At 0510, Dr. Mohamud notified. Doctor states he is going to place orders to discontinue heparin gtt at this time and cancel PTT lab draws. No other new orders received at this time.
--- NOTE | 2021-04-03 06:15 | PC.NURSE ---
Shift Note Frequent safety and comfort rounds continue. Orders and/or nursing care completed as indicated. Patient monitored for response to intervention and treatment(s). Education provided includes oxygen safety, restraints. Patient and/or sales representative [employer] not able comprehend. Patient remains confused throughout the night, but is alert and tolerating PO intake well. Levophed gtt weaned off and heparin gtt stopped per MD orders. Amio continues to infuse. Please see mar for all details. Will continue to monitor.
[2021-04-03] MEDS: amiodarone 200 mg Tablet 400 MG PO ×2 (08:03→17:28)
[2021-04-03] MEDS: vancomycin 1,000 MG in sodium chloride 0.9% 250 ML 250 MG IV (08:03)
[2021-04-03] MEDS: ciprofloxacin 0.3% Op Soln 2.5 mL Btl 1 DROP EYE-BOTH ×2 (09:23→12:17)
[2021-04-03] MEDS: cefTRIAXone 1,000 MG in sodium chloride 0.9% (plus) 50 ML 100 MG IV (09:23)
--- NOTE | 2021-04-03 09:27 | PC.SOCIAL ---
IMM UPDATED IMM dated and initialed and copy given to patient
[2021-04-03 09:37] LABS: Calcium 8.7 mg/dL (8.5-10.5); Carbon Dioxide 21 mmol/L (22-29); Chloride 112 mmol/L (98-107); Glucose 139 mg/dL (65-115); Osmolality Calculated 332 mOsm/kg (285-295); Sodium 146 mmol/L (136-145)
--- NOTE | 2021-04-03 09:40 | PC.CHAP ---
Pastoral Care Encounter/Spiritual Assessment Type of Contact [] Declined grounds restoration specialist visit [] Patient/Family/Request visit [] Outpatient visit [] Follow-up visit [] Physician referral [] Code/Alert [x] Routine visit [] Staff referral [] Actively dying [] Patient sleeping [] Family support [] [] Out of room [] Palliative care [] [] Receiving care in room [] Pre-surgical visit [] Trauma [] Long length of stay [x] ICU visit [] Other: Relational/Emotional Strength [] Patient feels connected with others/family/visitors/staff [] Distress [] Loneliness/isolation [] Abandonment Spirituality of Patient [] Person of Leia [] Attends Shinto of their Leia [] Believes in Prayer [] Reads Bible or Yazdanism materials [] There are Spiritual issues to be addressed Outgoing Inspector Interventions [] Prayer [] Active listening [] Non-anxious presence [] Spiritual/emotional support [] Crisis/trauma care [] Spiritual counseling [] Bereavement support [] Provided bereavement packet [] Provided Bible/devotional materials [] Provided toy/stuffed animal, coloring book to patient or family member [] Provided Communion [] Anointing/[place] [] Salvation [] Completed spiritual assessment [] Other: Impact on Illness or Injury [] Angry [] Fearful [] Anxious [] Often cries [] Exhaustion [] Unable to work [] Unable to attend religion [] Unable to walk/stand [] Unable to read [] Unable to drive [] Unable to eat/drink [] Unable to sleep [] Unable to be with family [] Patient intubated [] Other: Summary Time spent with patient
[2021-04-03 10:43] LABS: Anion Gap 16.8 (5-19); Blood Urea Nitrogen 90 mg/dL (8-23); Potassium 3.8 mmol/L (3.5-5.1)
[2021-04-03] MEDS: dexamethasone 10 mg/mL INJ 6 MG IVP (11:06)
[2021-04-03] MEDS: apixaban 5 mg Tablet 2.5 MG PO ×2 (14:49→20:15)
[2021-04-03] MEDS: digoxin 250 mcg/ml INJ 2 mL 125 MCG IVP (14:50)
[2021-04-03] MEDS: remdesivir 100 MG in sodium chloride 0.9% (100 ml) 100 ML IV (17:28)
--- NOTE | 2021-04-03 17:50 | P.PN_ITS ---
Subjective Subjective: This morning patient was endorsing feeling hungry, she was looking for her , seems to be confused at baseline, I did notify her nurse that patient has dementia and she will likely need spoon feeding/assisted feeding, speech therapy requested Continue vancomycin for Enterococcus faecalis, sensitivities pending Repeat cultures negative Afebrile Plan to transfer out of ICU For her A. fib RVR we will give low-dose digoxin as creatinine has improved with diuretics At the senior care she was taking calcium channel carmelo which I am resuming today since she is off levo Able to swallow amiodarone tablets Pur?ed diet by speech eval MRSA PCR negative Labs: Be drawn today I have requested PICC line, poor IV access, discontinued heparin by Dr. Mohamud, I will start Eliquis renally dosed Vitals/I&O/Wt Last Vital Signs Temp 97.4 F L 04/03/21 08:45 Pulse 135 H 04/03/21 17:15 Resp 21 H 04/03/21 17:15 BP 120/91 04/03/21 17:15 Pulse Ox 94 04/03/21 14:56 04/03/21 04/03/21 04/03/21 06:59 14:59 22:59 Intake Total 465.319 / 3121.866 547.065 / 547.065 60 / 607.065 Output Total 500 / 2375 550 / 550 Balance -34.681 / 746.866 547.065 / 547.065 -490 / 57.065 Physical Exam Narrative: Patient looks euvolemic Laying supine on 5 L nasal cannula Nonfocal neuro exam Able to move upper and lower extremities Abdomen is soft She is not complaining of any pain Able to answer some of my questions appropriately Struggles to recall name of her son No audible stridor or wheezing Urinary Catheter Management: Nelson: Cath Placed During This Visit: yes Reason for Continuing Indwelling Catheter: Accurate Measurement of Urinary Output in Critically Ill Patients Urinary Catheter Date of Insertion: 03/31/21 Urinary Catheter Time of Insertion: 00:35 Data : 04/02/21 02:52 04/03/21 09:08 Micro: Microbiology 03/31/21 11:54 Blood Culture - Preliminary Blood Enterococcus faecalis 03/31/21 11:42 Blood Culture - Preliminary Blood Enterococcus faecalis 04/02/21 08:06 Blood Culture - Preliminary Blood NEGATIVE TO DATE 04/02/21 08:05 Blood Culture - Preliminary Blood NEGATIVE TO DATE A&P Assessment and plan (1) Bacteremia: Status: Acute (2) TAPAN (acute kidney injury): Status: Acute (3) Delirium: Status: Acute (4) Diarrhea: Status: Acute (5) DNR (do not resuscitate): Status: Acute (6) Hypernatremia: Status: Acute (7) Dehydration: Status: Acute (8) CHF exacerbation: Status: Acute (9) Pneumonia due to COVID-19 virus: Status: Acute (10) Atrial fibrillation: Status: Acute (11) Acute hypoxemic respiratory failure: Status: Acute (12) Atrial fibrillation with RVR: Status: Acute Plan Patient presented from a senior care for altered mental status worsening and A. fib RVR. She got diagnosed with COVID-19 pneumonia. At baseline she has severe dementia, sometimes she wanders in the hallway looking for her . Called her son at the time of admission who made her DNR/DNI. COVID-19 related hypoxia Currently on 5 L nasal cannula Her hypoxia has not worsened during hospitalization Decadron and remdesivir regimen Hypernatremia Improved with D5 IV fluid hydration A. fib RVR chronic Started on amnio drip at the time of admission Started calcium channel carmelo and amiodarone 400 mg twice a day Today I gave her digoxin low-dose as well because of her worsening creatinine opted for the lowest dose Septic shock Resolved Off Levophed Blood culture positive with Enterococcus faecalis Urine culture pending CT abdomen pelvis showed diverticulosis No active emesis I would continue vancomycin and ceftriaxone until I see sensitivity report She remained afebrile Blood cultures negative Leukocytosis trending down DIC related to sepsis TAPAN Creatinine improved with diuresis Poor ejection fraction 35 to 40% EF Poor peripheral IV access, requested PICC line placement Pur?ed diet recommended by speech therapist because of her severe dementia she does not cooperate very well however displayed difficulty with mastication very limited p.o. intake No overt signs of aspiration DNR/DNI Attestations Medical Necessity Statement*: transfre out of icu Time Spent in Patient Care: 30min Coding Level of Care Code Acute Conductor Orchestra for [facility] Fwd Diagnoses Bacteremia R78.81 TAPAN (acute kidney injury) N17.9 Delirium R41.0 Diarrhea R19.7 DNR (do not resuscitate) Z66 Hypernatremia E87.0 Dehydration E86.0 CHF exacerbation I50.9 Pneumonia due to COVID-19 virus U07.1; J12.82 Atrial fibrillation I48.91 Acute hypoxemic respiratory failure J96.01 Atrial fibrillation with RVR I48.91
--- NOTE | 2021-04-03 19:00 | PC.NURSE ---
Report called to ASPEN Babin. At 194, patient transferred to room 112 bed 1. All belongings (rings and necklace) the patient is wearing at the time of transport. Patient tolerated transport well.
--- NOTE | 2021-04-03 19:20 | PC.NURSE ---
Telephoned Dr Carbajal to request a restart of medication on patient's med rec for anxiety. Received telephone order to continue ativan 1mg PO q4hr as needed for anxiety.
[2021-04-03] MEDS: LORazepam 1 mg Tablet PO (20:15)
[2021-04-03] MEDS: risperiDONE 0.25 mg Tablet 0.5 MG PO (21:48)
--- NOTE | 2021-04-03 21:59 | PC.NURSE ---
First dose of risperidone was wasted due to patient spitting it out. Patient refused to open mouth to retake the dose. Was able to give a dose of risperidone as ordered crushed in ice cream. Patient did like the ice cream and was able to consume the entire contents of ice cream with nurse feeding patient.
[2021-04-04] VITALS (13 sets, daily range): BP systolic 101–143; BP diastolic 47–82; PULSE 65–129; RESP 16–32; TEMP 36.2; O2SAT 90–98
--- NOTE | 2021-04-04 00:10 | PC.NURSE ---
Patient's heart rate sustaining 130s to 150s. Informed Dr Mohmaud and he placed an order for Metoprolol 5mg IVP one time now which was administered as ordered and documented. Patient's heart rate currently at 105 to 110s.
[2021-04-04 02:52] LABS: Basophils % 0.2 %; Hematocrit 41.7 % (37.0-47.0); Hemoglobin 12.2 g/dL (11.5-15.3); Lymphocytes # 0.3 10^3/uL (0.8-4.8); Lymphocytes % 2.1 %; Mean Corpuscular HGB Conc 29.3 g/dL (30.0-36.0); Mean Corpuscular Hemoglobin 28.2 pg (28.0-34.0); Mean Corpuscular Volume 96.3 fl (81-99); Mean Platelet Volume 13.2 fL (7.4-10.4); Monocytes # 0.2 10^3/uL (0.2-0.9); Monocytes % 1.5 %; Neutrophils # 11.84 10^3/uL (1.8-7.7); Neutrophils % 95.1 %; Nucleated Red Blood Cells % 0.2 %; Platelet Count 152 10^3/cmm (130-400); Red Blood Count 4.33 10^6/uL (4.1-5.3); Red Cell Distribution Width 15.2 % (12.1-15.1); White Blood Count 12.5 10^3/uL (4.0-10.0)
[2021-04-04 03:21] LABS: Alanine Aminotransferase 26 U/L (0-33); Albumin Level 2.5 g/dL (3.5-5.2); Alkaline Phosphatase 22 IU/L (35-105); Anion Gap 14.7 (5-19); Aspartate Amino Transferase 41 U/L (0-32); Carbon Dioxide 23 mmol/L (22-29); Chloride 115 mmol/L (98-107); Globulin 3.6 g/dL (1.3-4.6); Glucose 169 mg/dL (65-115); Osmolality Calculated 337 mOsm/kg (285-295); Potassium 3.7 mmol/L (3.5-5.1); Sodium 149 mmol/L (136-145); Total Bilirubin 0.4 mg/dL (0.15-1.2); Total Protein 6.1 g/dL (6.6-8.7)
[2021-04-04 03:26] LABS: Blood Urea Nitrogen 82 mg/dL (8-23)
[2021-04-04] MEDS: LORazepam 1 mg Tablet PO (04:20)
[2021-04-04] MEDS: metoprolol tartrate 1 mg/1 mL SDV 5 mL 5 MG IVP ×2 (04:21)
[2021-04-04] MEDS: amiodarone 200 mg Tablet 400 MG PO ×2 (09:12→17:04)
[2021-04-04] MEDS: cefTRIAXone 1,000 MG in sodium chloride 0.9% (plus) 50 ML 100 MG IV (09:12)
[2021-04-04] MEDS: apixaban 5 mg Tablet 2.5 MG PO (09:12)
--- NOTE | 2021-04-04 09:17 | XR_ITS ---
WS: [id number] Portable AP semiupright chest, 04/04/2021 Clinical Data: hypoxia, covid Comparison: Portable chest, 03/31/2021. Findings: The 2 diffuse bilateral patchy pulmonary opacities have not changed. The heart remains slig htly enlarged. The aortic arch shows calcification. Monitor leads are on the chest wall. There is a 2 -lead pacemaker unchanged in position. There are clips in the right upper quadrant from a cholecystec doug. XR/XR chest 1V portable [id number] Impression: 1. No change in diffuse bilateral pulmonary opacities consistent with pneumonia . 2. Atherosclerosis and cardiomegaly.
[2021-04-04 09:43] LABS: Glucose Point of Care 146 mg/dL (70-110)
[2021-04-04] MEDS: dextrose 5% 1,000 ML 75 ML IV (10:14)
[2021-04-04] MEDS: citalopram 20 mg Tablet PO (11:02)
[2021-04-04] MEDS: insulin lispro 100 unit/1 mL SUBCUT ×3 (11:02→21:15)
[2021-04-04] MEDS: dexamethasone 10 mg/mL INJ 6 MG IVP (11:10)
--- NOTE | 2021-04-04 15:25 | PM.PN ---
Subjective Subjective: Hospital course, labs appreciated. Examination patient lying comfortably in bed, confused, eyes closed. On asking how she is feeling she states she is okay. Not able to tell me her name or place. Heart rates have remained in 120s to 130s overnight. On review of telemetry patient's heart rate has been on higher side. Vitals/I&O/Wt Last Vital Signs Temp 97.4 F L 04/03/21 08:45 Pulse 120 H 04/04/21 11:30 Resp 24 H 04/04/21 11:30 BP 119/55 04/04/21 11:30 Pulse Ox 92 04/04/21 11:30 04/04/21 04/04/21 04/04/21 06:59 14:59 22:59 Intake Total 120 / 947.065 266.500 / 266.500 Output Total 350 / 900 500 / 500 Balance -230 / 47.065 -233.500 / -233.500 Physical Exam Narrative: General: No acute distress, in soft restraints, AO x1, seems to be baseline HEENT: PERRLA, pupils bilaterally equal and reactive Chest: Bilateral bronchial breath sounds, coarse crackles present all over the lung terry with diffuse rhonchi and fine crackles in bases, equal good air entry bilaterally CVS: S1-S2 irregularly irregular, tachycardia, no gallops, no rubs Abdomen: Soft, nontender, no organomegaly, bowel sounds present Neuro: No focal deficits, no facial deformity, AO x3, power 5/5 in all limbs Urinary Catheter Management: Nelson: Cath Placed During This Visit: yes Reason for Continuing Indwelling Catheter: Acute Urinary Retention or Obstruction Urinary Catheter Date of Insertion: 03/31/21 Urinary Catheter Time of Insertion: 00:35 Data : 04/04/21 02:44 04/04/21 02:44 Micro: Microbiology 03/31/21 11:54 Blood Culture - Preliminary Blood Enterococcus faecalis 03/31/21 11:42 Blood Culture - Preliminary Blood Enterococcus faecalis A&P Assessment and plan (1) Atrial fibrillation with RVR: Status: Acute (2) Bacteremia: Status: Acute (3) Acute hypoxemic respiratory failure: Status: Acute (4) Pneumonia due to COVID-19 virus: Status: Acute (5) TAPAN (acute kidney injury): Status: Acute (6) Delirium: Status: Acute (7) Uremia: Status: Acute (8) Hypernatremia: Status: Acute (9) Diarrhea: Status: Acute (10) DNR (do not resuscitate): Status: Acute (11) Dehydration: Status: Acute (12) CHF exacerbation: Status: Acute Plan Patient presented from a [facility] for altered mental status worsening and A. fib RVR. She got diagnosed with COVID-19 pneumonia. At baseline she has severe dementia, sometimes she wanders in the hallway looking for her . Atrial fibrillation with rapid ventricular response: Chronic. Continue with amiodarone 400 mg twice daily. Switch to Cardizem drip. Depending on blood pressures will add oral Cardizem 60 every 6 hourly and titrate accordingly. Currently on Eliquis 2.5 mg twice daily for anticoagulation. Switch to full dose Lovenox for now. Patient is at high risk of fall. Will discuss with DPOA regarding continuation versus discontinuation of anticoagulation on discharge. Delirium: Patient does have severe dementia at baseline. Does have history of delirium in the past. Worsened currently secondary to hypernatremia and possible uremia. Sodium levels 149 today. Start on D5W at 75 cc/h. For now start her on Celexa 20 mg daily, Aricept 10 mg nightly. Olanzapine Zydis 5 mg nightly. For now stop risperidone. Uremia: Most likely secondary to dehydration. Medical reconciliation done. Repeat BMP every 8 hours for now. Enterococcus bacteremia: Septic shock has resolved. Continue with vancomycin. Follow-up trough levels. Repeat blood cultures from 04/02 so far negative. COVID-19 related hypoxia Currently on 5 L nasal cannula Decadron 6 mg IV daily. Remdesivir to finish a 5-day course. DuoNebs every 6 hour, budesonide twice daily. Repeat chest x-ray. We will do D-dimer and CRP every 48 hours to monitor inflammatory markers. For now switch to Lovenox 1 mg/kg body weight daily as per creatinine clearance for anticoagulation for possible PE given diagnosis of Covid. Echocardiogram done earlier this hospitalization shows an EF of 35 to 40% though was done when patient was in RVR. Acute kidney injury: Seems to be improving. Coming down from 2.1-1.5. Do not have baseline. Most likely secondary to dehydration. Patient does have uremia and hypernatremia as well. For now IV fluid as above. Will monitor for fluid overload. Medical reconciliation done for nephrotoxic drugs. Pur?ed diet recommended by speech therapist because of her severe dementia she does not cooperate very well however displayed difficulty with mastication very limited p.o. intake DNR/DNI Protonix OPD prophylaxis Discharge planning: Plan to discharge back to SNF once medically stable. Attestations Medical Necessity Statement*: Requires further hospitalization for management of atrial fibrillation with rapid ventricular response, delirium secondary to hypernatremia, uremia, Enterococcus bacteremia, COVID-19 pneumonia leading to hypoxia Time Spent in Patient Care: Greater than 35 minutes Coding Level of Care Code Acute Order Fulfillment Specialist for [facility] Fwd Diagnoses Bacteremia R78.81 TAPAN (acute kidney injury) N17.9 Delirium R41.0 Diarrhea R19.7 DNR (do not resuscitate) Z66 Hypernatremia E87.0 Dehydration E86.0 CHF exacerbation I50.9 Pneumonia due to COVID-19 virus U07.1; J12.82 Acute hypoxemic respiratory failure J96.01 Atrial fibrillation with RVR I48.91 Uremia N19
[2021-04-04 15:27] LABS: Glucose Point of Care 239 mg/dL (70-110)
[2021-04-04] MEDS: enoxaparin 80 mg/0.8 mL Syringe 70 MG SUBCUT (17:01)
[2021-04-04] MEDS: dilTIAZem 60 mg Tablet PO ×2 (17:04→21:13)
[2021-04-04] MEDS: remdesivir 100 MG in sodium chloride 0.9% (100 ml) 100 ML IV (17:05)
--- NOTE | 2021-04-04 19:38 | PC.NURSE ---
Around 1909: Patient IVs to the left wrist and left forearm infiltrated. Fluids and medications stopped, IVs removed. Left arm elevated. Notified Dr. Enriquez, Hospitalist.
[2021-04-04] MEDS: OLANZapine 5 mg ODT 7.5 MG PO (21:12)
[2021-04-04] MEDS: donepezil 5 MG Tablet 10 MG PO (21:13)
[2021-04-04 21:18] LABS: Glucose Point of Care 183 mg/dL (70-110)
--- NOTE | 2021-04-04 22:34 | PC.NURSE ---
Hospitalist aware of lack of IV access. No new orders at this time. Continuous monitoring in place.
[2021-04-05] VITALS (21 sets, daily range): BP systolic 99–164; BP diastolic 62–105; PULSE 63–123; RESP 10–30; TEMP 36.3–36.9; O2SAT 91–98
[2021-04-05 01:44] LABS: Glucose Point of Care 113 mg/dL (70-110)
[2021-04-05 03:34] LABS: Hematocrit 40.7 % (37.0-47.0); Hemoglobin 12.4 g/dL (11.5-15.3); Mean Corpuscular HGB Conc 30.5 g/dL (30.0-36.0); Mean Corpuscular Hemoglobin 28.8 pg (28.0-34.0); Mean Corpuscular Volume 94.4 fl (81-99); Mean Platelet Volume 13.8 fL (7.4-10.4); Nucleated Red Blood Cells % 0 %; Platelet Count 118 10^3/cmm (130-400); Red Blood Count 4.31 10^6/uL (4.1-5.3); Red Cell Distribution Width 15.5 % (12.1-15.1); White Blood Count 13.4 10^3/uL (4.0-10.0)
[2021-04-05] MEDS: dilTIAZem 60 mg Tablet PO (04:29)
[2021-04-05 04:51] LABS: Glucose Point of Care 127 mg/dL (70-110)
[2021-04-05 07:39] LABS: Alanine Aminotransferase 20 U/L (0-33); Albumin Level 2.8 g/dL (3.5-5.2); Alkaline Phosphatase 17 IU/L (35-105); Anion Gap 11.7 (5-19); Aspartate Amino Transferase 27 U/L (0-32); Blood Urea Nitrogen 63 mg/dL (8-23); Calcium 9.1 mg/dL (8.5-10.5); Carbon Dioxide 25 mmol/L (22-29); Chloride 118 mmol/L (98-107); Globulin 3.1 g/dL (1.3-4.6); Glucose 158 mg/dL (65-115); Osmolality Calculated 333 mOsm/kg (285-295); Potassium 3.7 mmol/L (3.5-5.1); Sodium 151 mmol/L (136-145); Total Bilirubin 0.4 mg/dL (0.15-1.2); Total Protein 5.9 g/dL (6.6-8.7)
[2021-04-05] MEDS: budesonide 0.5 mg/2 mL Neb INHALATION ×2 (08:26→21:08)
[2021-04-05] MEDS: ipratropium-albuterol 3 mL Neb INHALATION ×3 (08:26→21:08)
--- NOTE | 2021-04-05 09:49 | XRR_ITS ---
PROCEDURE INFORMATION: Exam: XR Chest Exam date and time: 04/05/2021 9:49 AM Age: 80 years old Clinical indication: Other vascular access device placement or adjustment; Central line, tunnelled; Prior surgery; Surgery type: Pacer; Additional info: Central line placement TECHNIQUE: Imaging protocol: XR of the chest. Views: 1 view. COMPARISON: CR XR chest 1V portable [id number] 04/04/2021 9:30 AM FINDINGS: Tubes, catheters and devices: A cardiac device is seen in the left anterior chest. A right side central line extends into the SVC. Lungs: Parenchymal densities seen in the left perihilar region and bilateral upper lobes. These findings correspond to pneumonia. Interstitial congestion is seen in the right lower lobe. Pleural spaces: Unremarkable. No pleural effusion. No pneumothorax. Heart/Mediastinum: Comparison to prior examination the heart and lungs appears similar. Bones/joints: Unremarkable. XR/XR chest 1V portable [id number] IMPRESSION: 1. Stable bilateral lung pneumonia 2. Right lower lobe interstitial congestion 3. Right jugular line extends into the SVC 4. Stable cardiac device left anterior chest
--- NOTE | 2021-04-05 10:00 | W.ED.ARRPALP ---
HPI - Arrhythmia/Palpitations General: Chief Complaint: Arrhythmia/Palpitations Stated Complaint: AFIB WITH RVR Time Seen by Provider: 03/31/21 11:08 History of Present Illness: This note was created in error, I do not know how to delete notes in the system, but this should be deleted. [facility] ED PFSH: Medical History Atrial fibrillation Dementia DNR (do not resuscitate) Pneumonia due to COVID-19 virus Social History Smoking and tobacco status: never smoked Alcohol intake: never Substance/Drug Use: never Course Vital Signs: Vital signs: Vital Signs Temperature 97.3 F L 04/05/21 00:05 Pulse Rate 113 H 04/05/21 08:34 Respiratory Rate 17 04/05/21 08:26 Blood Pressure 125/90 04/05/21 06:00 Pulse Oximetry 94 04/05/21 08:26 MDM - Arrhythmia/Palpitations Medical Decision Making cvaf Lab Data : 04/05/21 03:15 04/05/21 07:[address] 03/31/21 11:23 IMPRESSION: 1. No acute intracranial abnormality. 2. Moderate diffuse cerebral atrophy. This appears particularly advanced within the hippocampal regions as is typically seen with dementia. 3. Multifocal sinusitis. 4. Trace bilateral mastoid effusions. Abdomen/Pelvis CT 04/01/21 13:25 IMPRESSION: 1. No acute abdominopelvic findings. 2. Multifocal pneumonia with right pleural effusion. 3. Other chronic findings as described Chest X-Ray 04/05/21 09:49 IMPRESSION: 1. Stable bilateral lung pneumonia 2. Right lower lobe interstitial congestion 3. Right jugular line extends into the SVC 4. Stable cardiac device left anterior chest Laboratory Results WBC 10.8 10^3/uL (4.0-10.0) H 03/31/21 11:42 RBC 4.47 10^6/uL (4.1-5.3) 03/31/21 11:42 Hgb 12.7 g/dL (11.5-15.3) 03/31/21 11:42 Hct 43.0 % (37.0-47.0) 03/31/21 11:42 MCV 96.2 fl (81-99) 03/31/21 11:42 MCH 28.4 pg (28.0-34.0) 03/31/21 11:42 MCHC 29.5 g/dL (30.0-36.0) L 03/31/21 11:42 RDW 15.2 % (12.1-15.1) H 03/31/21 11:42 Plt Count 198 10^3/cmm (130-400) 03/31/21 11:42 MPV 14.2 fL (7.4-10.4) H 03/31/21 11:42 Neut % (Auto) 93.0 % 03/31/21 11:42 Lymph % (Auto) 4.7 % 03/31/21 11:42 [place] % (Auto) 1.2 % 03/31/21 11:42 Eos % (Auto) 0.1 % 03/31/21 11:42 Baso % (Auto) 0.1 % 03/31/21 11:42 Neut # (Auto) 10.06 10^3/uL (1.8-7.7) H 03/31/21 11:42 Lymph # (Auto) 0.5 10^3/uL (0.8-4.8) L 03/31/21 11:42 [place] # (Auto) 0.1 10^3/uL (0.2-0.9) L 03/31/21 11:42 Eos # (Auto) 0.0 10^3/uL (0.0-0.8) 03/31/21 11:42 Baso # (Auto) 0.0 10^3/uL (0.0-0.1) 03/31/21 11:42 Nucleated RBC % (auto) 0.6 % 03/31/21 11:42 Nucleated RBCs # 0.1 /100WBC 03/31/21 11:42 PT 18.90 SECONDS (12.1-14.9) H 03/31/21 11:42 INR 1.54 (0.8-1.2) H 03/31/21 11:42 APTT 24.0 SECONDS (23.9-36.7) 03/31/21 11:42 Specimen Type Arterial 03/31/21 11:36 Sample Site Radial, left 03/31/21 11:36 ABG pH 7.41 (7.35-7.45) 03/31/21 11:36 ABG pCO2 37.7 mmHg (35-45) 03/31/21 11:36 ABG pO2 70.5 mmHg (80.0-100.0) L 03/31/21 11:36 ABG HCO3 24.1 mmol/L (22-26) 03/31/21 11:36 ABG O2 Saturation 94.2 03/31/21 11:36 ABG Base Excess -0.3 mmol/L (-2.0-2.0) 03/31/21 11:36 Dae Test Pos 03/31/21 11:36 A-a O2 Gradient 4.3 mmHg (5-10) L 03/31/21 11:36 Hematocrit 39.9 % (37-47) 03/31/21 11:36 Hgb O2 Saturation 92.5 % (95-100) L 03/31/21 11:36 Carboxyhemoglobin 1.0 %THgb (0.4-20.1) 03/31/21 11:36 Methemoglobin 0.8 % (0.4-1.5) 03/31/21 11:36 Total Hemoglobin 13.0 g/dL (12-16) 03/31/21 11:36 Sodium 160.0 mmol/L (131-143) H 03/31/21 11:36 Potassium 3.5 mmol/L (3.5-5.0) 03/31/21 11:36 Glucose 119.0 mg/dL (70-115) H 03/31/21 11:36 Ionized Calcium 1.3 mmol/L (1.1-1.4) 03/31/21 11:36 O2 Delivery Device Simple mask 03/31/21 11:36 O2 Liters/Min 10.0 % 03/31/21 11:36 [employer]oration [employer] ID Ed 03/31/21 11:36 Sodium 156 mmol/L (136-145) H 03/31/21 11:42 Potassium 3.6 mmol/L (3.5-5.1) 03/31/21 11:42 Chloride 117 mmol/L (98-107) H 03/31/21 11:42 Carbon Dioxide 20 mmol/L (22-29) L 03/31/21 11:42 Anion Gap 22.6 (5-19) H 03/31/21 11:42 BUN 92 mg/dL (8-23) H* 03/31/21 11:42 Creatinine 2.1 mg/dL (0.5-0.9) H 03/31/21 11:42 GFR Calculation Not Reportable 03/31/21 11:42 Glucose 114 mg/dL (65-115) 03/31/21 11:42 Calculated Osmolality 351 mOsm/kg (285-295) H 03/31/21 11:42 Lactate 2.0 mmol/L (0.5-2.2) 03/31/21 11:42 Calcium 8.9 mg/dL (8.5-10.5) 03/31/21 11:42 Magnesium 3.9 mg/dL (1.7-2.3) H 03/31/21 14:25 Troponin T Baseline 29 ng/L (0-10) H 03/31/21 11:42 Troponin T 120 Minute 28.02 ng/L (0-10) H 03/31/21 14:25 Delta Troponin T -0.98 ABS# (0-10) L 03/31/21 14:25 C-Reactive Protein 598.7 mg/L (0.0-4.9) H 03/31/21 11:42 NT-Pro-B Natriuret Pep 25151 pg/mL (0-450) H 03/31/21 11:42 Procalcitonin 3.13 ng/mL (0-0.5) H 03/31/21 14:25 TSH 0.22 uIU/mL (0.27-4.20) L 03/31/21 14:25 Coronavirus 229E (PCR) Not detected (NOT DETECT) 03/31/21 12:09 SARS-CoV-2 (PCR) Detected (NOT DETECT) A 03/31/21 12:09 Discharge Plan Discharge Patient Disposition: Admitted As Inpatient Admit Provider: Monisha Carbajal Clinical Impression: Acute hypoxemic respiratory failure, Altered mental status, Atrial fibrillation with RVR, Uremic encephalopathy, CHF exacerbation Condition: Stable Coding Level of Care Code ED Debone Supervisor for Angelica Verdin
[2021-04-05] MEDS: citalopram 20 mg Tablet PO (10:03)
[2021-04-05] MEDS: cefTRIAXone 1,000 MG in sodium chloride 0.9% (plus) 50 ML 100 MG IV (10:03)
[2021-04-05] MEDS: dilTIAZem 60 mg Tablet 90 MG PO ×2 (10:05→15:35)
[2021-04-05] MEDS: amiodarone 200 mg Tablet PO ×2 (10:27→18:16)
[2021-04-05 10:49] LABS: Glucose Point of Care 138 mg/dL (70-110)
[2021-04-05] MEDS: enoxaparin 80 mg/0.8 mL Syringe 70 MG SUBCUT ×2 (10:52→20:18)
[2021-04-05] MEDS: dextrose 5% 1,000 ML 75 ML IV ×2 (11:04→23:49)
[2021-04-05] MEDS: vancomycin 1,000 MG in sodium chloride 0.9% 250 ML 250 MG IV (13:36)
--- NOTE | 2021-04-05 13:36 | PC.SOCIAL ---
IMM UPDATED IMM dated and initialed and copy given to patient
[2021-04-05] MEDS: dexamethasone 10 mg/mL INJ 6 MG IVP (13:37)
--- NOTE | 2021-04-05 13:44 | PM.PN ---
Subjective Subjective: No acute events overnight. I have been told overnight patient lost IV access and has not been on IV Cardizem or on IV fluids since 7 PM yesterday evening. Multiple IV attempts were made but were unsuccessful. Yesterday BMP every 8 hours were ordered in the afternoon but unfortunately no results available yet. Patient's heart rate has been more stable. They are running in high low 90s to low 100s. Blood pressure has been stable. Continues to remain on 4 L saturating 95 to 96%. Documented urine output of 1 L in last 24 hours. Because of poor IV access and no nonavailability of PICC line placement central line was placed in right IJ with Dr. Downing/ERP. Vitals/I&O/Wt Last Vital Signs Temp 97.3 F L 04/05/21 00:05 Pulse 76 04/05/21 12:00 Resp 17 04/05/21 08:26 BP 136/82 04/05/21 12:00 Pulse Ox 96 04/05/21 12:00 04/04/21 04/05/21 04/05/21 22:59 06:59 14:59 Intake Total 1239.75 / 1506.250 120 / 1626.250 350 / 350 Output Total 75 / 575 475 / 1050 Balance 1164.75 / 931.250 -355 / 576.250 350 / 350 Physical Exam Narrative: General: No acute distress, in soft restraints, AO x1, seems to be baseline HEENT: PERRLA, pupils bilaterally equal and reactive Chest: Bilateral bronchial breath sounds, coarse crackles present all over the lung terry with diffuse rhonchi and fine crackles in bases, equal good air entry bilaterally CVS: S1-S2 irregularly irregular, tachycardia, no gallops, no rubs Abdomen: Soft, nontender, no organomegaly, bowel sounds present Neuro: No focal deficits, no facial deformity, AO x3, power 5/5 in all limbs Urinary Catheter Management: Nelson: Cath Placed During This Visit: yes Reason for Continuing Indwelling Catheter: Accurate Measurement of Urinary Output in Critically Ill Patients Urinary Catheter Date of Insertion: 03/31/21 Urinary Catheter Time of Insertion: 00:35 Data : 04/05/21 03:15 04/05/21 07:14 Micro: Microbiology 03/31/21 11:54 Blood Culture - Final Blood Enterococcus faecalis 03/31/21 11:42 Blood Culture - Final Blood Enterococcus faecalis A&P Assessment and plan (1) Atrial fibrillation with RVR: Status: Acute (2) Bacteremia: Status: Acute (3) Acute hypoxemic respiratory failure: Status: Acute (4) Pneumonia due to COVID-19 virus: Status: Acute (5) TAPAN (acute kidney injury): Status: Acute (6) Delirium: Status: Acute (7) Uremia: Status: Acute (8) Hypernatremia: Status: Acute (9) Diarrhea: Status: Acute (10) DNR (do not resuscitate): Status: Acute (11) Dehydration: Status: Acute (12) CHF exacerbation: Status: Acute (13) Congestive heart failure with left ventricular systolic dysfunction: Status: Acute Plan Patient presented from a half-way for altered mental status worsening and A. fib RVR. She got diagnosed with COVID-19 pneumonia. At baseline she has severe dementia, sometimes she wanders in the hallway looking for her . Atrial fibrillation with rapid ventricular response: Chronic. Improving. With 2 documented heart rates in 60s overnight. Amiodarone at 200 mg twice daily. Increase Cardizem to 90 mg every 6 hourly. Heart rate better controlled. If heart rate still going on the higher side can add metoprolol. Currently on Eliquis 2.5 mg twice daily for anticoagulation. Switch to full dose Lovenox for now. Patient is at high risk of fall. Will discuss with DPOA regarding continuation versus discontinuation of anticoagulation on discharge. Delirium: Patient does have severe dementia at baseline. Does have history of delirium in the past. Worsened currently secondary to hypernatremia and possible uremia. Sodium worsened to 151 today. Most likely because IV fluids were stopped last night. Continue with D5W at 75 cc/h. Continue with Celexa 20 mg daily, Aricept 10 mg nightly. Olanzapine Zydis 5 mg nightly. For now stop risperidone. Uremia: Most likely secondary to dehydration. Improving. Medical reconciliation done. Repeat BMP every 8 hours for now. Enterococcus bacteremia: Septic shock has resolved. Continue with vancomycin. Follow-up trough levels. Repeat blood cultures from 04/02 so far negative. Patient would need a PICC line placement to finish IV antibiotic course of 14 days from negative blood culture. Hypoxia secondary COVID-19 pneumonia and possible mild congestive heart failure Currently on 5 L nasal cannula Decadron 6 mg IV daily. Remdesivir to finish a 5-day course. DuoNebs every 6 hour, budesonide twice daily. Repeat chest x-ray. We will do D-dimer and CRP every 48 hours to monitor inflammatory markers. For now switch to Lovenox 1 mg/kg body weight daily as per creatinine clearance for anticoagulation for possible PE given diagnosis of Covid. Echocardiogram done earlier this hospitalization shows an EF of 35 to 40% though was done when patient was in RVR. Will need to monitor for fluid overload. Acute kidney injury: Seems to be improving. Coming down from 2.1-1.5. Do not have baseline. Most likely secondary to dehydration. Patient does have uremia and hypernatremia as well. For now IV fluid as above. Will monitor for fluid overload. Medical reconciliation done for nephrotoxic drugs. Pur?ed diet recommended by speech therapist because of her severe dementia she does not cooperate very well however displayed difficulty with mastication very limited p.o. intake DNR/DNI Protonix for PUD prophylaxis Discharge planning: Plan to discharge back to SNF once medically stable. Plan for today: Right IJ central line placement. Continue with D5W. Monitor BMP every 8 hour. Monitor for fluid overload. Continue with vancomycin for Enterococcus bacteremia. Increase Cardizem to 90 mg every 6 hourly for A. fib with RVR. If needed can add metoprolol. Decrease dose of amiodarone to 200 mg twice daily. Attestations Medical Necessity Statement*: Requires further hospitalization for management of hypoxia secondary COVID-19 pneumonia, delirium in setting of advanced dementia secondary to hypernatremia and uremia Time Spent in Patient Care: Greater than 35 minutes Procedures Central Line Placement^ Right IJ: Time out performed: Yes Patient placed on monitor/pulse ox: Yes MD prep: mask, gown and gloves Central line prep: Povidone-Iodine 1%, Chlorhexidine scrub and sterile drapes applied Local anesthesia used: lidocaine 1% Amount of anesthesia used (ml): 2 Ultrasound used for placement: Yes Central line lumen inserted: triple Post procedure: sutured in place, good blood return, all ports aspirated, flushed, capped and sterile dressing applied Post procedure x-ray: tip of catheter in good position and no pneumothorax seen Patient tolerated procedure: well and no complications Additional comments: With Dr. Downing, ERP Coding Level of Care Code Acute It Compliance Analyst for [facility] Fwd Diagnoses Atrial fibrillation with RVR I48.91 Bacteremia R78.81 Acute hypoxemic respiratory failure J96.01 Pneumonia due to COVID-19 virus U07.1; J12.82 TAPAN (acute kidney injury) N17.9 Delirium R41.0 Uremia N19 Hypernatremia E87.0 Diarrhea R19.7 DNR (do not resuscitate) Z66 Dehydration E86.0 CHF exacerbation I50.9 Congestive heart failure with left ventricular systolic dysfunction I50.20
[2021-04-05 14:03] LABS: Glucose Point of Care 205 mg/dL (70-110)
[2021-04-05] MEDS: insulin lispro 100 unit/1 mL SUBCUT ×2 (15:36→20:16)
[2021-04-05 15:59] LABS: Anion Gap 10.8 (5-19); Blood Urea Nitrogen 57 mg/dL (8-23); Calcium 8.7 mg/dL (8.5-10.5); Carbon Dioxide 25 mmol/L (22-29); Chloride 118 mmol/L (98-107); Glucose 190 mg/dL (65-115); Osmolality Calculated 331 mOsm/kg (285-295); Potassium 3.8 mmol/L (3.5-5.1); Sodium 150 mmol/L (136-145)
[2021-04-05 19:57] LABS: Glucose Point of Care 201 mg/dL (70-110)
[2021-04-05] MEDS: dilTIAZem 30 mg Tablet 90 MG PO (20:13)
[2021-04-05] MEDS: OLANZapine 5 mg ODT PO (20:13)
[2021-04-05] MEDS: donepezil 5 MG Tablet 10 MG PO (20:13)
--- NOTE | 2021-04-05 23:06 | PC.NURSE ---
Patient's restraint order expiring at midnight 04/05. Dr. Enriquez was notified. Instructed to renew order.
[2021-04-06] VITALS (18 sets, daily range): BP systolic 120–147; BP diastolic 45–78; PULSE 60–90; RESP 16–26; TEMP 36.3–36.7; O2SAT 2–96
[2021-04-06 00:03] LABS: Anion Gap 12.9 (5-19); Blood Urea Nitrogen 54 mg/dL (8-23); Carbon Dioxide 24 mmol/L (22-29); Chloride 119 mmol/L (98-107); Glucose 157 mg/dL (65-115); Osmolality Calculated 332 mOsm/kg (285-295); Potassium 3.9 mmol/L (3.5-5.1); Sodium 152 mmol/L (136-145)
[2021-04-06] MEDS: dilTIAZem 30 mg Tablet 90 MG PO ×4 (00:59→20:01)
[2021-04-06] MEDS: ipratropium-albuterol 3 mL Neb INHALATION ×4 (02:10→20:53)
[2021-04-06] MEDS: insulin lispro 100 unit/1 mL SUBCUT ×4 (03:14→20:03)
[2021-04-06 03:18] LABS: Glucose Point of Care 189 mg/dL (70-110)
[2021-04-06 03:29] LABS: Basophils % 0.1 %; Hematocrit 35.1 % (37.0-47.0); Hemoglobin 10.5 g/dL (11.5-15.3); Lymphocytes # 0.2 10^3/uL (0.8-4.8); Lymphocytes % 1.7 %; Mean Corpuscular HGB Conc 29.9 g/dL (30.0-36.0); Mean Corpuscular Hemoglobin 28.3 pg (28.0-34.0); Mean Corpuscular Volume 94.6 fl (81-99); Mean Platelet Volume 12.6 fL (7.4-10.4); Monocytes # 0.2 10^3/uL (0.2-0.9); Monocytes % 1.1 %; Neutrophils # 13.44 10^3/uL (1.8-7.7); Neutrophils % 95.8 %; Nucleated Red Blood Cells % 0 %; Platelet Count 150 10^3/cmm (130-400); Red Blood Count 3.71 10^6/uL (4.1-5.3); Red Cell Distribution Width 15.4 % (12.1-15.1)
[2021-04-06 03:54] LABS: Alanine Aminotransferase 17 U/L (0-33); Albumin Level 2.9 g/dL (3.5-5.2); Alkaline Phosphatase 17 IU/L (35-105); Anion Gap 12.8 (5-19); Aspartate Amino Transferase 19 U/L (0-32); Blood Urea Nitrogen 52 mg/dL (8-23); Calcium 9.1 mg/dL (8.5-10.5); Carbon Dioxide 24 mmol/L (22-29); Chloride 118 mmol/L (98-107); Globulin 2.8 g/dL (1.3-4.6); Glucose 180 mg/dL (65-115); Osmolality Calculated 331 mOsm/kg (285-295); Potassium 3.8 mmol/L (3.5-5.1); Sodium 151 mmol/L (136-145); Total Bilirubin 0.4 mg/dL (0.15-1.2); Total Protein 5.7 g/dL (6.6-8.7)
[2021-04-06 06:25] LABS: Glucose Point of Care 159 mg/dL (70-110)
[2021-04-06] MEDS: cefTRIAXone 1,000 MG in sodium chloride 0.9% (plus) 50 ML 100 MG IV (07:55)
[2021-04-06] MEDS: citalopram 20 mg Tablet PO (07:56)
[2021-04-06] MEDS: amiodarone 200 mg Tablet PO ×2 (07:56→17:48)
[2021-04-06 07:57] LABS: Blood Urea Nitrogen 50 mg/dL (8-23); Calcium 8.8 mg/dL (8.5-10.5); Carbon Dioxide 25 mmol/L (22-29); Chloride 118 mmol/L (98-107); Glucose 144 mg/dL (65-115); Osmolality Calculated 326 mOsm/kg (285-295); Sodium 150 mmol/L (136-145)
[2021-04-06] MEDS: budesonide 0.5 mg/2 mL Neb INHALATION ×2 (09:39→20:53)
[2021-04-06] MEDS: FUROsemide 10 mg/mL SDV 2mL 20 MG IVP (10:16)
[2021-04-06] MEDS: enoxaparin 80 mg/0.8 mL Syringe 70 MG SUBCUT ×2 (10:16→20:02)
[2021-04-06 11:36] LABS: Glucose Point of Care 183 mg/dL (70-110)
[2021-04-06] MEDS: vancomycin 1,000 MG in sodium chloride 0.9% 250 ML 250 MG IV (12:24)
[2021-04-06] MEDS: dextrose 5% 1,000 ML 125 ML IV ×2 (12:40→20:48)
[2021-04-06] MEDS: dexamethasone 10 mg/mL INJ 6 MG IVP (12:40)
--- NOTE | 2021-04-06 13:11 | P.PN_ITS ---
Subjective Subjective: No acute events overnight. Heart rate better controlled. No more episodes of agitation. Has remained hemodynamically stable and afebrile. Documented urine output in 24 hours 1100 cc. Down to 2 L oxygen supplementation saturating in high 90s. Vitals/I&O/Wt Last Vital Signs Temp 97.4 F L 04/06/21 12:00 Pulse 62 04/06/21 12:00 Resp 16 04/06/21 12:00 BP 131/70 04/06/21 12:00 Pulse Ox 2 L 04/06/21 12:00 04/05/21 04/06/21 04/06/21 22:59 06:59 14:59 Intake Total 240 / 840 956.25 / 1796.25 1140.00 / 1140.00 Output Total 650 / 650 500 / 1150 Balance -410 / 190 456.25 / 646.25 1140.00 / 1140.00 Physical Exam Narrative: General: No acute distress, in soft restraints, AO x1, seems to be baseline HEENT: PERRLA, pupils bilaterally equal and reactive Chest: Bilateral bronchial breath sounds, coarse crackles present all over the lung terry with diffuse rhonchi and fine crackles in bases, equal good air entry bilaterally CVS: S1-S2 irregularly irregular, tachycardia, no gallops, no rubs Abdomen: Soft, nontender, no organomegaly, bowel sounds present Neuro: No focal deficits, no facial deformity, AO x3, power 5/5 in all limbs Urinary Catheter Management: Nelson: Cath Placed During This Visit: yes Reason for Continuing Indwelling Catheter: Accurate Measurement of Urinary Output in Critically Ill Patients Urinary Catheter Date of Insertion: 03/31/21 Urinary Catheter Time of Insertion: 00:35 Data : 04/06/21 03:07 04/06/21 07:30 A&P Assessment and plan (1) Atrial fibrillation with RVR: Status: Acute (2) Bacteremia: Status: Acute (3) Acute hypoxemic respiratory failure: Status: Acute (4) Pneumonia due to COVID-19 virus: Status: Acute (5) TAPAN (acute kidney injury): Status: Acute (6) Delirium: Status: Acute (7) Uremia: Status: Acute (8) Hypernatremia: Status: Acute (9) Diarrhea: Status: Acute (10) DNR (do not resuscitate): Status: Acute (11) Dehydration: Status: Acute (12) CHF exacerbation: Status: Acute (13) Congestive heart failure with left ventricular systolic dysfunction: Status: Acute Plan Patient presented from a group home for altered mental status worsening and A. fib RVR. She got diagnosed with COVID-19 pneumonia. At baseline she has severe dementia, sometimes she wanders in the hallway looking for her . Atrial fibrillation with rapid ventricular response: Chronic. Rate controlled. Continue with amiodarone 200 mg twice daily, Cardizem 90 mg every 6 hour. For now continue anticoagulation with full dose Lovenox 1 mg/kg body weight. Patient is at high risk of falls because of persistent advanced dementia. Will discuss with DPOA prior to discharge regarding discontinuation versus continuation of anticoagulation. Delirium: Patient does have severe dementia at baseline. Does have history of delirium in the past. Worsened currently secondary to hypernatremia and possible uremia. Sodium stable at 150. Uremia has resolved. Increase D5W to 125 cc/h. Continue with Celexa 20 mg daily, Aricept 10 mg nightly. Change olanzapine Zydis 5 mg to as needed once nightly. Uremia: Most likely secondary to dehydration. Resolved. Medical reconciliation done. Repeat BMP every 12 hours for now. Enterococcus bacteremia: Septic shock has resolved. Continue with vancomycin. Follow-up trough levels. Repeat blood cultures from 04/02 so far negative. Patient would need a PICC line placement to finish IV antibiotic course of 14 days from negative blood culture. Hypoxia secondary COVID-19 pneumonia and possible mild congestive heart failure Oxygen supplementation turned down to 2 L. Wean keeping saturation over 88%. Decadron 6 mg IV daily to finish a 10-day course Has finished a course of remdesivir. DuoNebs every 6 hour, budesonide twice daily. Repeat chest x-ray. We will do D-dimer and CRP every 48 hours to monitor inflammatory markers. For now switch to Lovenox 1 mg/kg body weight daily as per creatinine clearance for anticoagulation for possible PE given diagnosis of Covid. Echocardiogram done earlier this hospitalization shows an EF of 35 to 40% though was done when patient was in RVR. Will need to monitor for fluid overload. Continue IV fluids given poor oral intake, hypernatremia. We will also give 20 mg of IV Lasix. Acute kidney injury: Resolved. Creatinine down to 1.1. BUN trending down to 50. Most likely secondary to dehydration. For now IV fluid as above. Will monitor for fluid overload. Medical reconciliation done for nephrotoxic drugs. Pur?ed diet recommended by speech therapist because of her severe dementia she does not cooperate very well however displayed difficulty with mastication very limited p.o. intake DNR/DNI Protonix for PUD prophylaxis Discharge planning: Plan to discharge back to SNF once medically stable. Plan for today: Monitor BMP every 12 hours. 20 mg IV Lasix. Increase fluid to 125 cc/h. Plan for PICC line when possible. Change olanzapine to as needed. Continue amiodarone and Cardizem at current dose. Attestations Medical Necessity Statement*: Requires further hospitalization for management of hyponatremia, resolving uremia, Enterococcus bacteremia and mild hypoxia in setting of COVID-19. Time Spent in Patient Care: Greater than 35 minutes Coding Level of Care Code Acute American History Professor for [facility] Fwd Diagnoses Atrial fibrillation with RVR I48.91 Bacteremia R78.81 Acute hypoxemic respiratory failure J96.01 Pneumonia due to COVID-19 virus U07.1; J12.82 TAPAN (acute kidney injury) N17.9 Delirium R41.0 Uremia N19 Hypernatremia E87.0 Diarrhea R19.7 DNR (do not resuscitate) Z66 Dehydration E86.0 CHF exacerbation I50.9 Congestive heart failure with left ventricular systolic dysfunction I50.20
[2021-04-06 14:04] LABS: C Reactive Protein 23.6 mg/L (0.0-4.9)
[2021-04-06 15:52] LABS: Glucose Point of Care 231 mg/dL (70-110)
[2021-04-06 16:28] LABS: D Dimer 2.35 ug/mIFEU (0-0.59)
[2021-04-06 16:31] LABS: Anion Gap 9.9 (5-19); Blood Urea Nitrogen 44 mg/dL (8-23); Calcium 8.6 mg/dL (8.5-10.5); Carbon Dioxide 24 mmol/L (22-29); Chloride 113 mmol/L (98-107); Creatinine Clr Calc Pharmacy 52.4716; Glucose 254 mg/dL (65-115); Osmolality Calculated 316 mOsm/kg (285-295); Potassium 3.9 mmol/L (3.5-5.1); Sodium 143 mmol/L (136-145)
[2021-04-06 19:36] LABS: Glucose Point of Care 281 mg/dL (70-110)
[2021-04-06] MEDS: donepezil 5 MG Tablet 10 MG PO (20:01)
[2021-04-07] VITALS (16 sets, daily range): BP systolic 122–137; BP diastolic 53–60; PULSE 60–78; RESP 16–28; TEMP 35.7–36.8; O2SAT 91–95
[2021-04-07] MEDS: dilTIAZem 30 mg Tablet 90 MG PO ×4 (01:28→21:34)
[2021-04-07] MEDS: ipratropium-albuterol 3 mL Neb INHALATION ×4 (03:17→21:08)
[2021-04-07] MEDS: insulin lispro 100 unit/1 mL SUBCUT ×4 (03:19→21:37)
[2021-04-07 03:22] LABS: Glucose Point of Care 164 mg/dL (70-110)
[2021-04-07 03:37] LABS: Basophils % 0.1 %; Hematocrit 34.5 % (37.0-47.0); Hemoglobin 10.2 g/dL (11.5-15.3); Lymphocytes # 0.3 10^3/uL (0.8-4.8); Lymphocytes % 1.4 %; Mean Corpuscular HGB Conc 29.6 g/dL (30.0-36.0); Mean Corpuscular Hemoglobin 28.2 pg (28.0-34.0); Mean Corpuscular Volume 95.3 fl (81-99); Mean Platelet Volume 12.6 fL (7.4-10.4); Monocytes # 0.3 10^3/uL (0.2-0.9); Monocytes % 1.7 %; Neutrophils # 17.22 10^3/uL (1.8-7.7); Neutrophils % 95.4 %; Nucleated Red Blood Cells % 0 %; Platelet Count 147 10^3/cmm (130-400); Red Blood Count 3.62 10^6/uL (4.1-5.3); Red Cell Distribution Width 15.4 % (12.1-15.1); White Blood Count 18.1 10^3/uL (4.0-10.0)
[2021-04-07 03:51] LABS: D Dimer 2.34 ug/mIFEU (0-0.59)
[2021-04-07 03:58] LABS: Alanine Aminotransferase 14 U/L (0-33); Albumin Level 2.6 g/dL (3.5-5.2); Alkaline Phosphatase 16 IU/L (35-105); Anion Gap 11.9 (5-19); Aspartate Amino Transferase 16 U/L (0-32); Blood Urea Nitrogen 44 mg/dL (8-23); C Reactive Protein 16.7 mg/L (0.0-4.9); Calcium 8.6 mg/dL (8.5-10.5); Carbon Dioxide 24 mmol/L (22-29); Chloride 109 mmol/L (98-107); Globulin 3.2 g/dL (1.3-4.6); Glucose 190 mg/dL (65-115); Osmolality Calculated 308 mOsm/kg (285-295); Potassium 3.9 mmol/L (3.5-5.1); Sodium 141 mmol/L (136-145); Total Bilirubin 0.4 mg/dL (0.15-1.2); Total Protein 5.8 g/dL (6.6-8.7)
[2021-04-07] MEDS: dextrose 5% 1,000 ML 125 ML IV ×3 (05:04→21:33)
[2021-04-07 06:27] LABS: Glucose Point of Care 155 mg/dL (70-110)
[2021-04-07] MEDS: budesonide 0.5 mg/2 mL Neb INHALATION ×2 (08:33→21:08)
[2021-04-07] MEDS: amiodarone 200 mg Tablet PO ×2 (08:38→18:00)
[2021-04-07] MEDS: citalopram 20 mg Tablet PO (08:38)
--- NOTE | 2021-04-07 08:55 | SUR.PREOP ---
PICC NOTE Patient evaluated for PICC. Needs consent from DPOA. Gloria LOUISE on CSU aware and will call when received. PICC pending appropriate consent.
--- NOTE | 2021-04-07 09:55 | SUR.PREOP ---
Patient consented. DPOA consented for line placemnt. Discussed with MD prior to insert. Verbal okay to proceed.
--- NOTE | 2021-04-07 10:00 | SUR.PREOP ---
FOR PICC LINE INSERTION
[2021-04-07] MEDS: enoxaparin 80 mg/0.8 mL Syringe 70 MG SUBCUT ×2 (10:39→21:35)
--- NOTE | 2021-04-07 11:20 | XR_ITS ---
WS: [id number] PORTABLE CHEST HISTORY: PICC placement COMPARISON: 04/05/2021 Interval placement of a RIGHT PICC line in good position with tip in the distal SVC. RIGHT IJ line al so in good position with the tip in distal SVC. Dual lead LEFT subclavian pacer. Lung volumes are decreased. Bilateral pulmonary opacifications without improvement. No pneumothorax. No pleural effusion. Cardiac size: Normal. Mediastinum/Aorta: Moderate calcification in aorta. Osteopenia. XR/XR chest 1V portable [id number] IMPRESSION: 1. Interval placement of a RIGHT PICC line in good position. 2. RIGHT IJ line in good position. 3. Continued bilateral diffuse pulmonary opacifications consistent with pneumo peter.
--- NOTE | 2021-04-07 11:20 | PC.SOCIAL ---
IMM UPDATED IMM dated and initialed and copy given to patient
[2021-04-07 11:55] LABS: Glucose Point of Care 175 mg/dL (70-110)
[2021-04-07 12:15] LABS: Vancomycin Trough 12.5 ug/mL (10-15)
--- NOTE | 2021-04-07 12:18 | ECG_ITS ---
[facility] Test Date: 2021-04-07 Pat Name: Delilah Adams Department: Room: 112 Gender: Female Bulk Station Operator: : [id number] Requested By: Ramiro Durand Order Number: [id number] Ibeth MD: Marquise Horan M.D. Measurements Intervals Sachse Rate: 60 P: 222 NM: 185 QRS: -38 QRSD: 146 T: -64 QT: 572 QTc: 572 Interpretive Statements ELECTRONIC ATRIAL PACEMAKER LEFT AXIS DEVIATION [QRS AXIS < -30] INTRAVENTRICULAR CONDUCTION DELAY [130+ ms QRS DURATION] LATERAL MYOCARDIAL INFARCTION , OF INDETERMINATE AGE [40+ ms Q WAVE AND/OR ST/T ABNORMALITY IN I/aVL/V5/V6] PROLONGED QT INTERVAL Compared to ECG 03/31/2021 11:18:36 Left-axis deviation now present Intraventricular conduction delay now present Prolonged QT interval now present Atrial fibrillation no longer present Left anterior fascicular block no longer present Myocardial infarct finding still present Electronically Signed On 04-07-2021 22:18:09 SMALL ANIMAL CARETAKER by Marquise Horan M.D. [email or web address]
--- NOTE | 2021-04-07 12:28 | PM.PN ---
Subjective Subjective: No acute events overnight. Has remained hemodynamically stable and afebrile. Heart rate controlled. Currently on 2 L saturating 94%. PICC line placed today. At baseline mentation. Poor oral intake. Vitals/I&O/Wt Last Vital Signs Temp 96.2 F L 04/07/21 08:07 Pulse 64 04/07/21 08:39 Resp 28 H 04/07/21 08:39 BP 131/57 04/07/21 07:21 Pulse Ox 94 04/07/21 08:39 04/06/21 04/07/21 04/07/21 22:59 06:59 14:59 Intake Total 1370 / 2510.00 1000 / 3510.00 Output Total 1100 / 1300 450 / 1750 405 / 405 Balance 270 / 1210.00 550 / 1760.00 -405 / -405 Physical Exam Narrative: General: No acute distress, in soft restraints, AO x1, seems to be baseline HEENT: PERRLA, pupils bilaterally equal and reactive Chest: Bilateral bronchial breath sounds, coarse crackles present all over the lung terry with diffuse rhonchi and fine crackles in bases, equal good air entry bilaterally CVS: S1-S2 irregularly irregular, tachycardia, no gallops, no rubs Abdomen: Soft, nontender, no organomegaly, bowel sounds present Neuro: No focal deficits, no facial deformity, AO x3, power 5/5 in all limbs Urinary Catheter Management: Nelson: Cath Placed During This Visit: yes Reason for Continuing Indwelling Catheter: Accurate Measurement of Urinary Output in Critically Ill Patients Urinary Catheter Date of Insertion: 03/31/21 Urinary Catheter Time of Insertion: 00:35 Data : 04/07/21 02:46 04/07/21 02:46 Micro: Microbiology 04/02/21 08:06 Blood Culture - Final Blood NO GROWTH AFTER 5 DAYS 04/02/21 08:05 Blood Culture - Final Blood NO GROWTH AFTER 5 DAYS A&P Assessment and plan (1) Atrial fibrillation with RVR: Status: Acute (2) Bacteremia: Status: Acute (3) Acute hypoxemic respiratory failure: Status: Acute (4) Pneumonia due to COVID-19 virus: Status: Acute (5) TAPAN (acute kidney injury): Status: Acute (6) Delirium: Status: Acute (7) Uremia: Status: Acute (8) Hypernatremia: Status: Acute (9) Diarrhea: Status: Acute (10) DNR (do not resuscitate): Status: Acute (11) Dehydration: Status: Acute (12) CHF exacerbation: Status: Acute (13) Congestive heart failure with left ventricular systolic dysfunction: Status: Acute (14) Counseling regarding goals of care: Status: Acute Plan Patient presented from a longterm for altered mental status worsening and A. fib RVR. She got diagnosed with COVID-19 pneumonia. At baseline she has severe dementia, sometimes she wanders in the hallway looking for her . Atrial fibrillation with rapid ventricular response: Chronic. Rate controlled. Continue with amiodarone 200 mg twice daily, Cardizem 90 mg every 6 hour. For now plan is to continue anticoagulation. Discussed with son. Given her current mental status patient would not ambulate and would not be a to fall risk. Delirium: Patient does have severe dementia at baseline. Does have history of delirium in the past. Worsened currently secondary to hypernatremia and possible uremia. Hypernatremia and uremia has resolved. Continue D5W to 125 cc/h. Continue with Celexa 20 mg daily, Aricept 10 mg nightly. Continue with olanzapine Zydis 5 mg to as needed once nightly. Uremia: Most likely secondary to dehydration. Resolved. Medical reconciliation done. Repeat BMP every 12 hours for now. Enterococcus bacteremia: Septic shock has resolved. Continue with vancomycin. Follow-up trough levels. Repeat blood cultures from 04/02 so far negative. Patient would need a PICC line placement to finish IV antibiotic course of 14 days from negative blood culture. Hypoxia secondary COVID-19 pneumonia and possible mild congestive heart failure Oxygen supplementation turned down to 2 L. Wean keeping saturation over 88%. Decadron 6 mg IV daily to finish a 10-day course Has finished a course of remdesivir. DuoNebs every 6 hour, budesonide twice daily. Repeat chest x-ray. We will do D-dimer and CRP every 48 hours to monitor inflammatory markers. Continue with Lovenox 1 mg/kg body weight daily as per creatinine clearance for anticoagulation for possible PE given diagnosis of Covid. Echocardiogram done earlier this hospitalization shows an EF of 35 to 40% though was done when patient was in RVR. Will need to monitor for fluid overload. Continue IV fluids given poor oral intake, hypernatremia. We will also give 20 mg of IV Lasix. Acute kidney injury: Resolved. Creatinine down to 1.1. BUN trending down to 50. Most likely secondary to dehydration. For now IV fluid as above. Will monitor for fluid overload. Medical reconciliation done for nephrotoxic drugs. Pur?ed diet recommended by speech therapist because of her severe dementia she does not cooperate very well however displayed difficulty with mastication very limited p.o. intake DNR/DNI Protonix for PUD prophylaxis Discharge planning: Plan to discharge back to SNF once medically stable. Plan for today: Monitor BMP daily for now. Continue with IV vancomycin. PICC line placed. D5W at 125. No Lasix today. Continue with oral antiarrhythmics. Goals of care: Discussed in detail with patient's son over the phone. We discussed that unfortunately patients symptoms are secondary to dehydration from poor oral intake which lead led to hypernatremia and uremia. We discussed that patient is at a high risk of dehydration again because of poor oral intake from advanced dementia. And there is a high likelihood that once the fluid is stopped and patient is discharged that she would develop symptoms again in the next few weeks because of recurrent hypernatremia and uremia. We discussed that going forward the option would be comfort measures versus PEG tube placement for hydration and nutrition. We discussed PEG tube placement would be artificial feeding and nutrition. He says no to PEG tube for now. He states he would speak with the SNF where patient is living at to discuss regarding options of hydration at the SNF. He states if not able to get any hydration he would think about comfort measures. Attestations Medical Necessity Statement*: Requires further hospitalization for management of enterococcal bacteremia, resolving TAPAN, hypernatremia, uremia, atrial fibrillation with rapid ventricular response in a patient with advanced dementia leading to poor oral intake Time Spent in Patient Care: Greater than 35 minutes Coding Level of Care Code Acute Employment Security Officer for [facility] Fwd Diagnoses Atrial fibrillation with RVR I48.91 Bacteremia R78.81 Acute hypoxemic respiratory failure J96.01 Pneumonia due to COVID-19 virus U07.1; J12.82 TAPAN (acute kidney injury) N17.9 Delirium R41.0 Uremia N19 Hypernatremia E87.0 Diarrhea R19.7 DNR (do not resuscitate) Z66 Dehydration E86.0 CHF exacerbation I50.9 Congestive heart failure with left ventricular systolic dysfunction I50.20 Counseling regarding goals of care Z71.89
[2021-04-07] MEDS: dexamethasone 10 mg/mL INJ 6 MG IVP (12:36)
--- NOTE | 2021-04-07 13:16 | PC.NURSE ---
Around 929: Contacted patients next of kin ,Norberto Gil, and obtained verbal consent for PICC line insertion.
[2021-04-07] MEDS: vancomycin 1,000 MG in sodium chloride 0.9% 250 ML 250 MG IV (13:33)
[2021-04-07 16:31] LABS: Glucose Point of Care 200 mg/dL (70-110)
[2021-04-07 17:40] LABS: Anion Gap 11.9 (5-19); Blood Urea Nitrogen 36 mg/dL (8-23); Calcium 8.3 mg/dL (8.5-10.5); Carbon Dioxide 22 mmol/L (22-29); Chloride 108 mmol/L (98-107); Creatinine Clr Calc Pharmacy 59.0306; Glucose 230 mg/dL (65-115); Osmolality Calculated 302 mOsm/kg (285-295); Potassium 3.9 mmol/L (3.5-5.1); Sodium 138 mmol/L (136-145)
[2021-04-07] MEDS: donepezil 5 MG Tablet 10 MG PO (21:30)
[2021-04-07 21:31] LABS: Glucose Point of Care 201 mg/dL (70-110)
[2021-04-08] VITALS (18 sets, daily range): BP systolic 114–152; BP diastolic 59–106; PULSE 60–77; RESP 14–23; TEMP 35.2–36.8; O2SAT 90–97
[2021-04-08] MEDS: haloperidol inj 5 mg/mL INJ 1 mL 1 MG IM (00:09)
[2021-04-08] MEDS: morphine 4 mg/mL SDV 1 mL 1 MG IVP (01:25)
[2021-04-08] MEDS: dilTIAZem 30 mg Tablet 90 MG PO ×3 (01:26→19:21)
--- NOTE | 2021-04-08 01:30 | PC.NURSE ---
Patient awoke and started yelling and crying. Haldol given IM as patient was pulling off telemetry wires and attempting to pull out right IJ even with soft wrist restraints on. Order received for 1mg IV ativan and given to patient. Patient sleeping shortly after and no longer attempting to remove wires etc. Will continue to monitor.
[2021-04-08] MEDS: ipratropium-albuterol 3 mL Neb INHALATION ×4 (02:07→21:02)
[2021-04-08 04:12] LABS: Basophils % 0.1 %; Hematocrit 32.5 % (37.0-47.0); Hemoglobin 10.2 g/dL (11.5-15.3); Lymphocytes # 0.2 10^3/uL (0.8-4.8); Lymphocytes % 1.6 %; Mean Corpuscular HGB Conc 31.4 g/dL (30.0-36.0); Mean Corpuscular Volume 89.3 fl (81-99); Mean Platelet Volume 12.8 fL (7.4-10.4); Monocytes # 0.3 10^3/uL (0.2-0.9); Monocytes % 1.9 %; Neutrophils # 13.42 10^3/uL (1.8-7.7); Neutrophils % 95.3 %; Nucleated Red Blood Cells % 0 %; Platelet Count 126 10^3/cmm (130-400); Red Blood Count 3.64 10^6/uL (4.1-5.3); Red Cell Distribution Width 14.6 % (12.1-15.1); White Blood Count 14.1 10^3/uL (4.0-10.0)
[2021-04-08 04:41] LABS: Alanine Aminotransferase 24 U/L (0-33); Albumin Level 2.6 g/dL (3.5-5.2); Alkaline Phosphatase 16 IU/L (35-105); Aspartate Amino Transferase 31 U/L (0-32); Blood Urea Nitrogen 34 mg/dL (8-23); Calcium 8.3 mg/dL (8.5-10.5); Carbon Dioxide 23 mmol/L (22-29); Chloride 106 mmol/L (98-107); Creatinine Clr Calc Pharmacy 59.0306; Globulin 2.8 g/dL (1.3-4.6); Glucose 192 mg/dL (65-115); Osmolality Calculated 295 mOsm/kg (285-295); Sodium 136 mmol/L (136-145); Total Bilirubin 0.5 mg/dL (0.15-1.2); Total Protein 5.4 g/dL (6.6-8.7)
[2021-04-08 04:48] LABS: Anion Gap 11.4 (5-19); Potassium 4.4 mmol/L (3.5-5.1)
[2021-04-08 06:17] LABS: Glucose Point of Care 198 mg/dL (70-110)
[2021-04-08] MEDS: insulin lispro 100 unit/1 mL SUBCUT ×2 (06:18→19:59)
[2021-04-08] MEDS: dextrose 5% 1,000 ML 125 ML IV (06:19)
[2021-04-08 06:50] LABS: Glucose Point of Care 64 mg/dL (70-110)
--- NOTE | 2021-04-08 06:51 | PC.NURSE ---
Patient slept after given morphine. Fluids infusing. Will continue to monitor.
[2021-04-08] MEDS: citalopram 20 mg Tablet PO (08:16)
[2021-04-08] MEDS: amiodarone 200 mg Tablet PO ×2 (08:17→19:20)
[2021-04-08] MEDS: budesonide 0.5 mg/2 mL Neb INHALATION ×2 (09:09→21:02)
[2021-04-08] MEDS: enoxaparin 80 mg/0.8 mL Syringe 70 MG SUBCUT ×2 (10:11→19:59)
[2021-04-08 11:22] LABS: Glucose Point of Care 197 mg/dL (70-110)
[2021-04-08] MEDS: dexamethasone 10 mg/mL INJ 6 MG IVP (11:44)
[2021-04-08] MEDS: vancomycin 1,000 MG in sodium chloride 0.9% 250 ML 250 MG IV (11:44)
--- NOTE | 2021-04-08 13:34 | PM.PN ---
Subjective Subjective: No acute events overnight. Overnight patient had episodes of occasionally moaning but settled down after IV morphine. Has remained hemodynamically stable and afebrile. Remains averbal. Waking up on physical cue. On waking up states she does not want to be disturbed and wants to sleep further. Still remains confused. Vitals/I&O/Wt Last Vital Signs Temp 95.3 F L 04/08/21 07:57 Pulse 60 04/08/21 12:03 Resp 14 04/08/21 12:03 BP 114/59 04/08/21 12:03 Pulse Ox 91 04/08/21 12:03 04/07/21 04/08/21 04/08/21 22:59 06:59 14:59 Intake Total 1197.917 / 2567.917 1000 / 3567.917 Output Total 1000 / 1405 700 / 2105 900 / 900 Balance 197.917 / 1162.917 300 / 1462.917 -900 / -900 Physical Exam Narrative: General: No acute distress, in soft restraints, AO x1, seems to be baseline HEENT: PERRLA, pupils bilaterally equal and reactive Chest: Bilateral bronchial breath sounds, coarse crackles present all over the lung terry with diffuse rhonchi and fine crackles in bases, equal good air entry bilaterally CVS: S1-S2 irregularly irregular, tachycardia, no gallops, no rubs Abdomen: Soft, nontender, no organomegaly, bowel sounds present Neuro: No focal deficits, no facial deformity, AO x3, power 5/5 in all limbs Urinary Catheter Management: Nelson: Cath Placed During This Visit: yes Reason for Continuing Indwelling Catheter: Acute Urinary Retention or Obstruction Urinary Catheter Date of Insertion: 03/31/21 Urinary Catheter Time of Insertion: 00:35 Data : 04/08/21 04:01 04/08/21 04:01 Micro: Microbiology 04/02/21 08:06 Blood Culture - Final Blood NO GROWTH AFTER 5 DAYS 04/02/21 08:05 Blood Culture - Final Blood NO GROWTH AFTER 5 DAYS A&P Assessment and plan (1) Atrial fibrillation with RVR: Status: Acute (2) Bacteremia: Status: Acute (3) Acute hypoxemic respiratory failure: Status: Acute (4) Pneumonia due to COVID-19 virus: Status: Acute (5) TAPAN (acute kidney injury): Status: Acute (6) Delirium: Status: Acute (7) Uremia: Status: Acute (8) Hypernatremia: Status: Acute (9) Diarrhea: Status: Acute (10) DNR (do not resuscitate): Status: Acute (11) Dehydration: Status: Acute (12) CHF exacerbation: Status: Acute (13) Congestive heart failure with left ventricular systolic dysfunction: Status: Acute (14) Counseling regarding goals of care: Status: Acute Plan Patient presented from a care home for altered mental status worsening and A. fib RVR. She got diagnosed with COVID-19 pneumonia. At baseline she has severe dementia, sometimes she wanders in the hallway looking for her . Atrial fibrillation with rapid ventricular response: Chronic. Rate controlled. Continue with amiodarone 200 mg twice daily, Cardizem 90 mg every 6 hour. For now plan is to continue anticoagulation. Discussed with son. Given her current mental status patient would not ambulate and would not be a to fall risk. Delirium: Patient does have severe dementia at baseline. Does have history of delirium in the past. Worsened currently secondary to hypernatremia and possible uremia. Hypernatremia and uremia has resolved. D5W at 50 cc/h. Continue with Celexa 20 mg daily, Aricept 10 mg nightly. Continue with olanzapine Zydis 5 mg to as needed once nightly. Uremia: Most likely secondary to dehydration. Resolved. Medical reconciliation done. Repeat BMP every 12 hours for now. Enterococcus bacteremia: Septic shock has resolved. Continue with vancomycin. Follow-up trough levels. Repeat blood cultures from 04/02 so far negative. Patient would need a PICC line placement to finish IV antibiotic course of 14 days from negative blood culture. Hypoxia secondary COVID-19 pneumonia and possible mild congestive heart failure Oxygen supplementation turned down to 2 L. Wean keeping saturation over 88%. Decadron 6 mg IV daily to finish a 10-day course Has finished a course of remdesivir. DuoNebs every 6 hour, budesonide twice daily. Repeat chest x-ray. We will do D-dimer and CRP every 48 hours to monitor inflammatory markers. Continue with Lovenox 1 mg/kg body weight daily as per creatinine clearance for anticoagulation for possible PE given diagnosis of Covid. Echocardiogram done earlier this hospitalization shows an EF of 35 to 40% though was done when patient was in RVR. Will need to monitor for fluid overload. Continue IV fluids given poor oral intake, hypernatremia. We will also give 20 mg of IV Lasix. Acute kidney injury: Resolved. Creatinine down to 1.1. BUN trending down to 50. Most likely secondary to dehydration. For now IV fluid as above. Will monitor for fluid overload. Medical reconciliation done for nephrotoxic drugs. Pur?ed diet recommended by speech therapist because of her severe dementia she does not cooperate very well however displayed difficulty with mastication very limited p.o. intake DNR/DNI Protonix for PUD prophylaxis Discharge planning: Discharge back to SNF once prior authorization received. Goals of care: Discussed in detail with patient's son over the phone. We discussed that unfortunately patients symptoms are secondary to dehydration from poor oral intake which lead led to hypernatremia and uremia. We discussed that patient is at a high risk of dehydration again because of poor oral intake from advanced dementia. And there is a high likelihood that once the fluid is stopped and patient is discharged that she would develop symptoms again in the next few weeks because of recurrent hypernatremia and uremia. We discussed that going forward the option would be comfort measures versus PEG tube placement for hydration and nutrition. We discussed PEG tube placement would be artificial feeding and nutrition. He says no to PEG tube for now. He states he would speak with the SNF where patient is living at to discuss regarding options of hydration at the SNF. He states if not able to get any hydration he would think about comfort measures. Plan for today: Decrease D5W to 50 cc/h. Continue with oral antiarrhythmics. Add morphine as needed. Continue IV antibiotics. Attestations Medical Necessity Statement*: Requires further hospitalization for management of Enterococcus bacteremia, resolved uremia and hypernatremia secondary to poor oral intake from advanced dementia, atrial fibrillation with rapid ventricular response while safe discharge planning is sought. Time Spent in Patient Care: 16 - 35 minutes Coding Level of Care Code Acute Hand Clerical Verifier for [facility] Diagnoses Atrial fibrillation with RVR I48.91 Bacteremia R78.81 Acute hypoxemic respiratory failure J96.01 Pneumonia due to COVID-19 virus U07.1; J12.82 TAPAN (acute kidney injury) N17.9 Delirium R41.0 Uremia N19 Hypernatremia E87.0 Diarrhea R19.7 DNR (do not resuscitate) Z66 Dehydration E86.0 CHF exacerbation I50.9 Congestive heart failure with left ventricular systolic dysfunction I50.20 Counseling regarding goals of care Z71.89
[2021-04-08 16:14] LABS: Glucose Point of Care 132 mg/dL (70-110)
[2021-04-08] MEDS: dextrose 5% 1,000 ML 50 ML IV ×2 (16:52→16:53)
[2021-04-08 16:56] LABS: Anion Gap 11.1 (5-19); Blood Urea Nitrogen 32 mg/dL (8-23); Calcium 8.6 mg/dL (8.5-10.5); Carbon Dioxide 24 mmol/L (22-29); Chloride 107 mmol/L (98-107); Creatinine Clr Calc Pharmacy 52.4716; Glucose 140 mg/dL (65-115); Osmolality Calculated 295 mOsm/kg (285-295); Potassium 4.1 mmol/L (3.5-5.1); Sodium 138 mmol/L (136-145)
[2021-04-08] MEDS: donepezil 5 MG Tablet 10 MG PO (19:21)
[2021-04-08] MEDS: OLANZapine 5 mg ODT PO (19:22)
[2021-04-08 20:01] LABS: Glucose Point of Care 159 mg/dL (70-110)
[2021-04-09] VITALS (19 sets, daily range): BP systolic 132–155; BP diastolic 68–103; PULSE 60–89; RESP 12–20; TEMP 36.1–36.3; O2SAT 90–98
[2021-04-09] MEDS: morphine 4 mg/mL SDV 1 mL 1 MG IVP (00:04)
--- NOTE | 2021-04-09 00:05 | PC.NURSE ---
Patient refused PO Cardizem at this time. Dr. Enriquez notified. Patient pulled out IJ to right neck. Catheter intact. Suture removed by RN.
[2021-04-09] MEDS: haloperidol inj 5 mg/mL INJ 1 mL 1 MG IM (00:28)
--- NOTE | 2021-04-09 00:33 | PC.NURSE ---
Patient yelling out help. Patient tearful and crying. Dr. Enriquez at bedside. Ordered to give PRN Morphine and Haldol. Attempt to reorient and comfort patient, however patient is unable to comprehend.
[2021-04-09] MEDS: morphine 4 mg/mL SDV 1 mL 2 MG IVP (01:22)
[2021-04-09] MEDS: ipratropium-albuterol 3 mL Neb INHALATION ×4 (02:28→14:09)
[2021-04-09 02:51] LABS: Glucose Point of Care 145 mg/dL (70-110)
[2021-04-09 03:01] LABS: Basophils % 0.1 %; Hematocrit 34.6 % (37.0-47.0); Hemoglobin 11.4 g/dL (11.5-15.3); Lymphocytes # 0.2 10^3/uL (0.8-4.8); Lymphocytes % 1.6 %; Mean Corpuscular HGB Conc 32.9 g/dL (30.0-36.0); Mean Corpuscular Hemoglobin 28.7 pg (28.0-34.0); Mean Corpuscular Volume 87.2 fl (81-99); Mean Platelet Volume 12.5 fL (7.4-10.4); Monocytes # 0.4 10^3/uL (0.2-0.9); Monocytes % 2.8 %; Neutrophils # 12.22 10^3/uL (1.8-7.7); Neutrophils % 94.6 %; Nucleated Red Blood Cells % 0 %; Platelet Count 104 10^3/cmm (130-400); Red Blood Count 3.97 10^6/uL (4.1-5.3); Red Cell Distribution Width 14.7 % (12.1-15.1); White Blood Count 12.9 10^3/uL (4.0-10.0)
[2021-04-09 03:20] LABS: Alanine Aminotransferase 25 U/L (0-33); Albumin Level 2.6 g/dL (3.5-5.2); Alkaline Phosphatase 18 IU/L (35-105); Blood Urea Nitrogen 33 mg/dL (8-23); C Reactive Protein 6.8 mg/L (0.0-4.9); Calcium 8.8 mg/dL (8.5-10.5); Carbon Dioxide 23 mmol/L (22-29); Chloride 109 mmol/L (98-107); Creatinine Clr Calc Pharmacy 52.4716; Globulin 2.6 g/dL (1.3-4.6); Glucose 117 mg/dL (65-115); Osmolality Calculated 296 mOsm/kg (285-295); Sodium 139 mmol/L (136-145); Total Bilirubin 0.4 mg/dL (0.15-1.2); Total Protein 5.2 g/dL (6.6-8.7)
[2021-04-09 03:29] LABS: Aspartate Amino Transferase 28 U/L (0-32)
[2021-04-09] MEDS: budesonide 0.5 mg/2 mL Neb INHALATION (08:20)
[2021-04-09] MEDS: citalopram 20 mg Tablet 30 MG PO (09:31)
[2021-04-09] MEDS: dexamethasone 10 mg/mL INJ 3 MG IVP (09:31)
[2021-04-09] MEDS: enoxaparin 80 mg/0.8 mL Syringe 70 MG SUBCUT ×2 (09:32→21:00)
[2021-04-09] MEDS: dilTIAZem 30 mg Tablet 90 MG PO (09:32)
--- NOTE | 2021-04-09 09:45 | USCV_ITS ---
Delilah Adams Age: 80 Gender: F : 1940 Exam Date: 04/09/2021 13:42 Ordering Phys: Ramiro Durand MD Technologist: ИРИНА [place] [facility] [place]: RUE SWELLING HISTORY: Upper extremity swelling. PROCEDURES: Venous duplex imaging was performed in only the right upper extremity. The following venous structures were evaluated: internal jugular vein, subclavian vein, axillary vein, and brachial veins. In addition, the basilic vein, cephalic vein, radial vein, and ulnar vein. Serial compression, augmentation maneuvers, and spectral Doppler flow evaluation were performed. FINDINGS: + for DVT in IJV. Line seen in Right subclavain vein. Non compressible Basilic v. All other veins appear patent. Limited exam due to bandages and patient limitations CONCLUSIONS DVT in the RIGHT Internal jugular vein. Catheter Right subclavian vein Additional thrombus basilic vein Remainder RUE veins patent Limited exam due to bandages and patient positioning Yogi Calvo MD (Electronically Signed) Final Date: 09 April 2021 16:13 S
--- NOTE | 2021-04-09 10:04 | PC.NURSE ---
Pt refused her morning oral meds. she won't open her mouth and keep it tightly closed. we will try again.
--- NOTE | 2021-04-09 10:24 | PC.SOCIAL ---
IMM Update Pg. 2 of IMM updated. Initialed, dated, and timed copy in chart. Copy provided. Attempted to reach patient's daughter, no answer.
[2021-04-09] MEDS: vancomycin 1,000 MG in sodium chloride 0.9% 250 ML 250 MG IV (12:08)
[2021-04-09 12:33] LABS: Glucose Point of Care 129 mg/dL (70-110)
--- NOTE | 2021-04-09 15:58 | P.PN_ITS ---
Subjective Subjective: Had episodes of confusion. Patient also found crying for help. She pulled out her right IJ central line. Hemodynamically has remained stable. Unable to take oral medications today. Found to have swelling of the right upper limb today where PICC line was placed. Able to draw blood through PICC line. Vitals/I&O/Wt Last Vital Signs Temp 97 F L 04/09/21 04:00 Pulse 60 04/09/21 14:21 Resp 16 04/09/21 14:21 BP 137/87 04/09/21 12:00 Pulse Ox 93 04/09/21 14:21 04/09/21 04/09/21 04/09/21 06:59 14:59 22:59 Intake Total 0 / 1300.833 250 / 250 1000 / 1250 Output Total 550 / 2150 Balance -550 / -849.167 250 / 250 1000 / 1250 Physical Exam Narrative: General: No acute distress, in soft restraints, AO x1, seems to be baseline HEENT: PERRLA, pupils bilaterally equal and reactive Chest: Bilateral bronchial breath sounds, coarse crackles present all over the lung terry with diffuse rhonchi and fine crackles in bases, equal good air entry bilaterally CVS: S1-S2 irregularly irregular, tachycardia, no gallops, no rubs Abdomen: Soft, nontender, no organomegaly, bowel sounds present Neuro: No focal deficits, no facial deformity, AO x3, power 5/5 in all limbs Extremities: Right upper limb swelling. No hematoma in the neck where IJ was placed Urinary Catheter Management: Nelson: Cath Placed During This Visit: yes Reason for Continuing Indwelling Catheter: Other Urinary Catheter Date of Insertion: 03/31/21 Urinary Catheter Time of Insertion: 00:35 Data : 04/09/21 02:45 04/09/21 02:45 A&P Assessment and plan (1) Atrial fibrillation with RVR: Status: Acute (2) Bacteremia: Status: Acute (3) Acute hypoxemic respiratory failure: Status: Acute (4) Pneumonia due to COVID-19 virus: Status: Acute (5) TAPAN (acute kidney injury): Status: Acute (6) Delirium: Status: Acute (7) Uremia: Status: Acute (8) Hypernatremia: Status: Acute (9) Diarrhea: Status: Acute (10) DNR (do not resuscitate): Status: Acute (11) Dehydration: Status: Acute (12) CHF exacerbation: Status: Acute (13) Congestive heart failure with left ventricular systolic dysfunction: Status: Acute (14) Counseling regarding goals of care: Status: Acute Plan Patient presented [facility] a [facility] for altered mental status worsening and A. fib RVR. She got diagnosed with COVID-19 pneumonia. At baseline she has severe dementia, sometimes she wanders in the hallway looking for her . Right upper limb swelling: We will get Doppler. Verbally reported to have basilic vein DVT. Will wait for report. If positive will get the PICC line out. Continue with full dose Lovenox. Stop vancomycin and switch to oral linezolid. Will need oral linezolid to finish the course of antibiotics for Enterobacter with last dose on 04/16. Atrial fibrillation with rapid ventricular response: Chronic. Rate controlled. Continue with amiodarone 200 mg twice daily, switch to longstanding Cardizem 300 mg oral daily. For now plan is to continue anticoagulation. Discussed with son. Given her current mental status patient would not ambulate and would not be a to fall risk. Delirium: Patient does have severe dementia at baseline. Does have history of delirium in the past. Worsened currently secondary to hypernatremia and possible uremia. Hypernatremia and uremia has resolved. Continue with D5W. Continue with Celexa 20 mg daily, Aricept 10 mg nightly. Continue with olanzapine Zydis 5 mg to as needed once nightly. Uremia: Most likely secondary to dehydration. Resolved. Medical reconciliation done. BMP daily. Enterococcus bacteremia: Septic shock has resolved. Continue with vancomycin. Follow-up trough levels. Repeat blood cultures from 04/02 so far negative. As patient is altered and high risk of pulling out PICC line along with a possi ble DVT in the right upper limb did get PICC line was placed for now the plan will be to switch over to oral antibiotics with linezolid 600 mg twice daily with last day of medication on 04/16. Hypoxia secondary COVID-19 pneumonia and possible mild congestive heart failure Oxygen supplementation turned down to 2 L. Wean keeping saturation over 88%. Decadron 3 mg IV daily to finish a 10-day course. Last dose on 04/11. Has finished a course of remdesivir. DuoNebs every 6 hour, budesonide twice daily. Repeat chest x-ray. We will do D-dimer and CRP every 48 hours to monitor inflammatory markers. Continue with Lovenox 1 mg/kg body weight daily as per creatinine clearance for anticoagulation for possible PE given diagnosis of Covid. Echocardiogram done earlier this hospitalization shows an EF of 35 to 40% though was done when patient was in RVR. Will need to monitor for fluid overload. Continue IV fluids given poor oral intake, hypernatremia. We will also give 20 mg of IV Lasix. Acute kidney injury: Resolved. Creatinine down to 1.1. BUN trending down to 50. Most likely secondary to dehydration. For now IV fluid as above. Will monitor for fluid overload. Medical reconciliation done for nephrotoxic drugs. Pur?ed diet recommended by speech therapist because of her severe dementia she does not cooperate very well however displayed difficulty with mastication very limited p.o. intake DNR/DNI Protonix for PUD prophylaxis Discharge planning: Discharge back to SNF once prior authorization received. Goals of care: Discussed in detail with patient's son over the phone. We di scussed that unfortunately patients symptoms are secondary to dehydration from poor oral intake which lead led to hypernatremia and uremia. We discussed that patient is at a high risk of dehydration again because of poor oral intake from advanced dementia. And there is a high likelihood that once the fluid is stopped and patient is discharged that she would develop symptoms again in the next few weeks because of recurrent hypernatremia and uremia. We discussed that going forward the option would be comfort measures versus PEG tube placement for hydration and nutrition. We discussed PEG tube placement would be artificial feeding and nutrition. He says no to PEG tube for now. He states he would speak with the SNF where patient is living at to discuss regarding options of hydration at the SNF. He states if not able to get any hydration he would think about comfort measures. Plan for today: Continue with fluids. Continue full dose Lovenox. Remove restraints. Cardizem 300 mg oral daily. Stop divided doses. Change from vancomycin to linezolid once report of DVT is confirmed. Attestations Medical Necessity Statement*: Requires further hospitalization for management of atrial fibrillation after mental response, delirium, COVID-19, Enterobacter bacteremia Time Spent in Patient Care: Greater than 35 minutes Coding Level of Care Code Acute Plant Electrical Engineer for [facility] Verdin Diagnoses Atrial fibrillation with RVR I48.91 Bacteremia R78.81 Acute hypoxemic respiratory failure J96.01 Pneumonia due to COVID-19 virus U07.1; J12.82 TAPAN (acute kidney injury) N17.9 Delirium R41.0 Uremia N19 Hypernatremia E87.0 Diarrhea R19.7 DNR (do not resuscitate) Z66 Dehydration E86.0 CHF exacerbation I50.9 Congestive heart failure with left ventricular systolic dysfunction I50.20 Counseling regarding goals of care Z71.89
--- NOTE | 2021-04-09 19:29 | PC.NURSE ---
pt won't let me get a blood draw for accucheck this evening. she will curl up and hide her hands. Attempted to feed her and cork pressing machine operator her pills all shift, she still keep her mouth tightly close. Attempted to plan to dc her braxton cather but she will not let me touch her thigh. report given to gospel worker tomasa.
[2021-04-09] MEDS: donepezil 5 MG Tablet 10 MG PO (20:58)
[2021-04-09] MEDS: amiodarone 200 mg Tablet PO (20:59)
[2021-04-09] MEDS: OLANZapine 10 mg ODT PO (20:59)
[2021-04-09] MEDS: dilTIAZem ER (24HR) 300 mg Capsule PO (20:59)
[2021-04-09 21:24] LABS: Glucose Point of Care 125 mg/dL (70-110)
[2021-04-10] VITALS (9 sets, daily range): BP systolic 112–159; BP diastolic 59–92; PULSE 60–84; RESP 12–18; TEMP 36.1–37.1; O2SAT 88–94
[2021-04-10] MEDS: dextrose 5% 1,000 ML 50 ML IV (01:08)
--- NOTE | 2021-04-10 01:43 | PC.NURSE ---
pt pulled out PICC line. Dr. Enriquez notified. No new orders received. will continue to monitor.
[2021-04-10 05:25] LABS: Glucose Point of Care 74 mg/dL (70-110)
--- NOTE | 2021-04-10 05:53 | PC.NURSE ---
pt rested quietly for first half of shift, pt became restless after midnight, but fell back asleep at 0400. Pt confused entire shift, but redirects well. VSS. Pt refusing continuous tele and pulse ox. Nelson patent. Adequate UOP. Hourly rounding done. Q2 turns done. All needs met.
[2021-04-10] MEDS: amiodarone 200 mg Tablet PO ×2 (08:30→18:12)
[2021-04-10] MEDS: dilTIAZem ER (24HR) 300 mg Capsule PO (08:31)
[2021-04-10] MEDS: citalopram 20 mg Tablet 30 MG PO (08:31)
--- NOTE | 2021-04-10 08:58 | P.DS_ITS ---
Discharge Providers Date of Admission: 03/31/21 17:26 Date of Discharge: April 10, 2021 Attending Provider at Admission: Monisha Carbajal MD Attending Provider at Discharge: Ramiro Durand MD Diagnoses at Discharge Discharge Diagnosis (1) Atrial fibrillation with RVR: Status: Acute (2) Bacteremia: Status: Acute (3) Acute hypoxemic respiratory failure: Status: Acute (4) Pneumonia due to COVID-19 virus: Status: Acute (5) TAPAN (acute kidney injury): Status: Acute (6) Delirium: Status: Acute (7) Uremia: Status: Acute (8) Hypernatremia: Status: Acute (9) Diarrhea: Status: Acute (10) DNR (do not resuscitate): Status: Acute (11) Dehydration: Status: Acute (12) CHF exacerbation: Status: Acute (13) Congestive heart failure with left ventricular systolic dysfunction: Status: Acute (14) Counseling regarding goals of care: Status: Acute Reason for Visit Reason for Visit: AFIB WITH RVR Brief History: History as per HPI on 03/31: WALTER CROW is a 80 year old female who presented to the ER from skilled nursing.? Her chief complaint was hypoxia and rapid heart rate.? I was called before work-up in the ED.? Patient was in A. fib RVR heart rate in 140s, she was requiring 10 L oxygen mask, she was confused, extremely dehydrated.? I made stat phone calls and spoke with her son.? Son told me that she has advanced dementia at baseline, she cannot carry a decent conversation with anyone, sometimes she would wander in the hallways. In the ER she was given 1 L bolus, esmolol drip was initiated by the ER physician which dropped her blood pressure, later on I requested amiodarone after the bolus.? I requested ER physician to cancel digoxin because of high creatinine.? She did not receive digoxin.? Patient is not able to provide any history however she was able to tell me that she is in the hospital.? She was extremely fatigued and lethargic. Later on work-up showed mild hypokalemia, mild leukocytosis, abnormal TSH, requested D-dimer, free T4, ABG showed PO2 70 on 10 L oxygen mask Sodium 156, 3 to 4 L water deficit Abnormal uremia with high creatinine Lactate is normal downtrending troponin no ischemic or infarctive change on EKG BNP 10,000 CRP 598 clinically patient was dehydrated Procalcitonin 3.1 Covid PCR positive Hospital Course Hospital Course Patient was admitted to the hospital for further evaluation and management of atrial fibrillation, mild hypoxia secondary Covid 19, worsening of mental status than her baseline secondary to dehydration, hypernatremia and uremia from TAPAN. She was started on treatment with dexamethasone, remdesivir, inhalation treatment. She responded well to the treatment for Covid 19 and has been on room air for last 3 to 4 days. She was started on IV hydration which managed to dehydration, hypernatremia and uremia. Even after resolution of all the above patient continued to remain delirious which is most likely secondary to her advanced dementia. It was discussed with the patient's skilled nursing and son and they conveyed that unfortunately this is patient's baseline mentation and she has occasions of confusion, delirium in past as well. For her delirium patient's psych medications were adjusted. Currently she is being discharged on Celexa, donepezil and olanzapine at bedtime. Her dose of Risperdal has been stopped. For atrial fibrillation at start patient was started on Cardizem drip but has heart rate was difficult to control she was transitioned over to amiodarone drip. Amiodarone was later converted to oral and her heart rate was better controlled. She has been discharged on oral amiodarone 200 mg daily along with Cardizem 300 mg oral daily. Patient's heart rate has been well controlled on the above medications. During hospitalization patient was also found to have bacteremia from Enterococcus for which she was kept on IV vancomycin. PICC line was placed for IV antibiotic course as an outpatient for overall 14 days which he supposed to end on 04/16. For line safety and personal safety of patient patient was kept in soft restraints during the treatment because of delirium. Patient continued to move her arm with PICC line. On 04/09 patient was found to have mild swelling in the right arm for which upper limb Doppler was done and she was found to have basilic vein DVT. Patient eventually pulled out PICC line on 04/09. Because of DVT in the basilic vein, high chances of patient to pull out PICC line again and have hazardous cough pulling at the PICC line again it was decided to switch over to oral linezolid to finish a course of antibiotics for Enterococcus. For the DVT patient is being discharged on Eliquis. Patient is at high risk of fall and catastrophic bleeding. Was discussed in detail with the patient's DPOA and for now the decision was made to continue the anticoagulation for DVT and for atrial fibrillation. If patient's delirium continues to worsen Eliquis should be stopped after further goals of care discussion with DPOA. Goals of care were discussed in detail with patient's son over the phone.? We discussed that unfortunately patients symptoms are secondary to dehydration from poor oral intake which lead led to hypernatremia and uremia.? We discussed that patient is at a high risk of dehydration again because of poor oral intake from advanced dementia.? And there is a high likelihood that once the fluid is stopped and patient is discharged that she would develop symptoms again in the next few weeks because of recurrent hypernatremia and uremia.? We discussed that going forward the option would be comfort measures versus PEG tube placement for hydration and nutrition.? We discussed PEG tube placement would be artificial feeding and nutrition. He says no to PEG tube for now.? He states he would speak with the SNF where patient is living at to discuss regarding options of hydration at the SNF.? He states if not able to get any hydration he would think about comfort measures. She has been discharged at baseline mentation Linezolid 04/16. She is in hemodynamically stable condition. On the day of discharge I tried to call patient's DPOA but unable to get into so left voicemail. Will wait for the call back or call again later in the day. Physical Exam Narrative: General: No acute distress, awake, eating her breakfast by herself, not agitated AO x1, seems to be baseline HEENT: PERRLA, pupils bilaterally equal and reactive Chest: Bilateral bronchial breath sounds, coarse crackles present all over the lung terry with diffuse rhonchi and fine crackles in bases, equal good air entry bilaterally CVS: S1-S2 irregularly irregular, tachycardia, no gallops, no rubs Abdomen: Soft, nontender, no organomegaly, bowel sounds present Neuro: No focal deficits, no facial deformity, AO x3, power 5/5 in all limbs Extremities: Right upper limb swelling. No hematoma in the neck where IJ was placed Urinary Catheter Management: Nelson: Cath Placed During This Visit: yes Reason for Continuing Indwelling Catheter: Other Urinary Catheter Date of Insertion: 03/31/21 Urinary Catheter Time of Insertion: 00:35 Discharge Data Studies Completed and Pending Completed Studies During Hospitalization Category Date Time Status CT abdomen pelvis wo con [id number] Routine Cat Scan 04/01/21 13:[address] head wo con* [id number] Urgent Cat Scan 03/31/21 11:23 Completed XR chest 1V portable [id number] Routine Exams 04/04/21 09:17 Completed XR chest 1V portable [id number] Stat Exams 04/05/21 09:49 Completed XR chest 1V portable [id number] Stat Exams 04/07/21 11:20 Completed XR chest 1V portable [id number] Urgent Exams 03/31/21 11:23 Completed CV. echo complete* [id number] Routine Ultrasound 04/01/21 Completed US venous duplex upper extremity RT [CV venous duplex Ultrasound 04/09/21 09:45 [place] [id number]] Routine Pending at discharge Category Date Time Status CDIFF [Clostridioides Difficile PCR] Routine Lab 04/01/21 09:31 Uncollected Radiology Impressions Head CT 03/31/21 11:23 IMPRESSION: 1. No acute intracranial abnormality. 2. Moderate diffuse cerebral atrophy. This appears particularly advanced within the hippocampal regions as is typically seen with dementia. 3. Multifocal sinusitis. 4. Trace bilateral mastoid effusions. Abdomen/Pelvis CT 04/01/21 13:25 IMPRESSION: 1. No acute abdominopelvic findings. 2. Multifocal pneumonia with right pleural effusion. 3. Other chronic findings as described Chest X-Ray 04/07/21 11:20 IMPRESSION: 1. Interval placement of a RIGHT PICC line in good position. 2. RIGHT IJ line in good position. 3. Continued bilateral diffuse pulmonary opacifications consistent with pneumonia. Upper limb duplex: FINDINGS: ?+ for DVT in IJV. Line seen in Right subclavain vein. Non?compressible Basilic v. All other veins appear patent. Limited ?exam due to bandages and patient limitations ?CONCLUSIONS ?DVT in the RIGHT Internal jugular vein. ?Catheter Right subclavian vein ?Additional thrombus basilic vein ?Remainder RUE veins patent ?Limited exam due to bandages and patient positioning ?Yogi Calvo MD ?(Electronically Signed) ?Final Date:? ? ? 09 April 2021 ? 16:13 S Microbiology 04/02/21 08:06 Blood Blood Culture - Final NO GROWTH AFTER 5 DAYS 04/02/21 08:05 Blood Blood Culture - Final NO GROWTH AFTER 5 DAYS 03/31/21 11:54 Blood Blood Culture - Final Enterococcus faecalis 03/31/21 11:42 Blood Blood Culture - Final Enterococcus faecalis 03/31/21 21:14 Nose MRSA Culture - Final Laboratory Results WBC 12.9 10^3/uL (4.0-10.0) H 04/09/21 02:45 Corrected WBC Cancelled 04/03/21 09:08 RBC 3.97 10^6/uL (4.1-5.3) L 04/09/21 02:45 Hgb 11.4 g/dL (11.5-15.3) L 04/09/21 02:45 Hct 34.6 % (37.0-47.0) L 04/09/21 02:45 MCV 87.2 fl (81-99) 04/09/21 02:45 MCH 28.7 pg (28.0-34.0) 04/09/21 02:45 MCHC 32.9 g/dL (30.0-36.0) 04/09/21 02:45 RDW 14.7 % (12.1-15.1) 04/09/21 02:45 Plt Count 104 10^3/cmm (130-400) L 04/09/21 02:45 MPV 12.5 fL (7.4-10.4) H 04/09/21 02:45 Gran % Cancelled 04/03/21 09:08 Neut % (Auto) 94.6 % 04/09/21 02:45 Lymph % (Auto) 1.6 % 04/09/21 02:45 [place] % (Auto) 2.8 % 04/09/21 02:45 Eos % (Auto) 0.0 % 04/09/21 02:45 Baso % (Auto) 0.1 % 04/09/21 02:45 Neut # (Auto) 12.22 10^3/uL (1.8-7.7) H 04/09/21 02:45 Lymph # (Auto) 0.2 10^3/uL (0.8-4.8) L 04/09/21 02:45 [place] # (Auto) 0.4 10^3/uL (0.2-0.9) 04/09/21 02:45 Eos # (Auto) 0.0 10^3/uL (0.0-0.8) 04/09/21 02:45 Baso # (Auto) 0.0 10^3/uL (0.0-0.1) 04/09/21 02:45 Absolute Gran (auto) Cancelled 04/03/21 09:08 Nucleated RBC % (auto) 0 % 04/09/21 02:45 Total Counted 100 (0-100) 04/01/21 03:01 Atypical Lymphs % 2.0 % (0-5) 04/01/21 03:01 Absolute Neutrophils 12.4 10^3/cmm (1.4-6.5) H 04/01/21 03:01 Segmented Neutrophils 77 % 04/01/21 03:01 Abs Segm Neuts (Man) 9.9 10/cmm (1.6-7.1) H 04/01/21 03:01 Band Neutrophils 20.0 % 04/01/21 03:01 Abs Band Neuts (Man) 2.6 10^3/cmm (0.0-1.2) H 04/01/21 03:01 Absolute Lymphocytes 0.4 10^3/cmm (1.2-3.4) L 04/01/21 03:01 Lymphocytes (Manual) 1 % 04/01/21 03:01 Monocytes (Manual) 0.0 % 04/01/21 03:01 Absolute Monocytes 0.0 10^3/cmm (0.1-0.6) L 04/01/21 03:01 Eosinophils (Manual) 0 % 04/01/21 03:01 Absolute Eosinophils 0.0 10^3/cmm (0.0-0.7) 04/01/21 03:01 Basophils (Manual) 0.0 % 04/01/21 03:01 Absolute Basophils 0.0 10^3/cmm (0.0-0.2) 04/01/21 03:01 Nucleated RBCs 1.0 /100WBC (0-1) 04/01/21 03:01 Nucleated RBCs # 0.0 /100WBC 04/09/21 02:45 Platelet Estimate Normal (Normal) 04/01/21 03:01 PT 19.40 SECONDS (12.1-14.9) H 04/01/21 10:35 INR 1.60 (0.8-1.2) H 04/01/21 10:35 APTT 48.6 SECONDS (23.9-36.7) H 04/02/21 20:35 Fibrinogen 823 mg/dL (174-498) H 04/01/21 10:35 Fibrin Degrad Products Pos, 10-40 ug/mL (NEG) H 04/01/21 10:35 D-Dimer 2.30 ug/mIFEU (0-0.59) H 04/09/21 02:45 Specimen Type Arterial 04/01/21 08:41 Sample Site Brachial, left 04/01/21 08:41 ABG pH 7.33 (7.35-7.45) L 04/01/21 08:41 ABG pCO2 43.1 mmHg (35-45) 04/01/21 08:41 ABG pO2 83.3 mmHg (80.0-100.0) 04/01/21 08:41 ABG HCO3 22.5 mmol/L (22-26) 04/01/21 08:41 ABG O2 Saturation 94.2 03/31/21 11:36 ABG Base Excess -3.5 mmol/L (-2.0-2.0) L 04/01/21 08:41 Dae Test Pos 04/01/21 08:41 A-a O2 Gradient 4.3 mmHg (5-10) L 03/31/21 11:36 Hematocrit 36.7 % (37-47) L 04/01/21 08:41 Hgb O2 Saturation 92.5 % (95-100) L 03/31/21 11:36 Carboxyhemoglobin 1.0 %THgb (0.4-20.1) 03/31/21 11:36 Methemoglobin 0.8 % (0.4-1.5) 03/31/21 11:36 Total Hemoglobin 13.0 g/dL (12-16) 03/31/21 11:36 Sodium 160.0 mmol/L (131-143) H 03/31/21 11:36 Potassium 3.5 mmol/L (3.5-5.0) 03/31/21 11:36 Glucose 119.0 mg/dL (70-115) H 03/31/21 11:36 Ionized Calcium 1.3 mmol/L (1.1-1.4) 03/31/21 11:36 O2 Delivery Device Simple mask 04/01/21 08:41 O2 Liters/Min 10.0 % 04/01/21 08:41 Residential Service Technician ID Cak 04/01/21 08:41 Sodium 139 mmol/L (136-145) 04/09/21 02:45 Potassium 5.0 mmol/L (3.5-5.1) 04/09/21 02:45 Chloride 109 mmol/L (98-107) H 04/09/21 02:45 Carbon Dioxide 23 mmol/L (22-29) 04/09/21 02:45 Anion Gap 12.0 (5-19) 04/09/21 02:45 BUN 33 mg/dL (8-23) H 04/09/21 02:45 Creatinine 0.9 mg/dL (0.5-0.9) 04/09/21 02:45 GFR Calculation Not Reportable 04/09/21 02:45 Glucose 117 mg/dL (65-115) H 04/09/21 02:45 POC Glucose 74 mg/dL (70-110) 04/10/21 05:17 Calculated Osmolality 296 mOsm/kg (285-295) H 04/09/21 02:45 Lactate 2.0 mmol/L (0.5-2.2) 04/01/21 03:01 Calcium 8.8 mg/dL (8.5-10.5) 04/09/21 02:45 Magnesium 3.5 mg/dL (1.7-2.3) H 04/01/21 03:01 Total Bilirubin 0.4 mg/dL (0.15-1.2) 04/09/21 02:45 AST 28 U/L (0-32) 04/09/21 02:45 ALT 25 U/L (0-33) 04/09/21 02:45 Alkaline Phosphatase 18 IU/L (35-105) L 04/09/21 02:45 Troponin T Baseline 29 ng/L (0-10) H 03/31/21 11:42 Troponin T 120 Minute 28.02 ng/L (0-10) H 03/31/21 14:25 Delta Troponin T -0.98 ABS# (0-10) L 03/31/21 14:25 Troponin T Hi Sens 6Hr 28.33 ng/L (0-10) H 03/31/21 18:40 Troponin T Hi Sens 6Hr Delta -0.67 ng/L (0-12) L 03/31/21 18:40 C-Reactive Protein 6.8 mg/L (0.0-4.9) H 04/09/21 02:45 NT-Pro-B Natriuret Pep 19782 pg/mL (0-450) H 03/31/21 11:42 Total Protein 5.2 g/dL (6.6-8.7) L 04/09/21 02:45 Albumin 2.6 g/dL (3.5-5.2) L 04/09/21 02:45 Globulin 2.6 g/dL (1.3-4.6) 04/09/21 02:45 Procalcitonin 3.13 ng/mL (0-0.5) H 03/31/21 14:25 TSH 0.22 uIU/mL (0.27-4.20) L 03/31/21 14:25 Free T4 1.45 ng/dL (0.82-1.77) 03/31/21 21:28 Urine Color Yellow (Yellow) 04/01/21 16:30 Urine Appearance Clear (CLEAR) 04/01/21 16:30 Urine pH 5 (5-7) 04/01/21 16:30 Ur Specific [place] 1.015 (1.005-1.030) 04/01/21 16:30 Urine Protein Neg (Negative) 04/01/21 16:30 Urine Glucose (UA) Norm (Normal) 04/01/21 16:30 Urine Ketones Negative (Negative) 04/01/21 16:30 Urine Blood 2+ (Negative) H 04/01/21 16:30 Urine Nitrate Negative (Negative) 04/01/21 16:30 Urine Bilirubin Neg (Negative) 04/01/21 16:30 Urine Urobilinogen 1 mg/dL (Negative) H 04/01/21 16:30 Ur Leukocyte Esterase Negative (Negative) 04/01/21 16:30 Urine RBC 0-4 /hpf (0-2) H 04/01/21 16:30 Urine WBC 0-4 /hpf (0-5) H 04/01/21 16:30 Ur Squamous Epith Cells 0-4 /hpf (0-5) H 04/01/21 16:30 Amorphous Sediment Not Reportable 04/01/21 16:30 Urine Bacteria 1+ /hpf (NONE) H 04/01/21 16:30 Fine Granular Casts 0-4 /lpf H 04/01/21 16:30 Coarse Granular Casts 0-4 /lpf H 04/01/21 16:30 Vancomycin Trough 12.5 ug/mL (10-15) 04/07/21 11:35 Coronavirus 229E (PCR) Not detected (NOT DETECT) 03/31/21 12:09 SARS-CoV-2 (PCR) Detected (NOT DETECT) A 03/31/21 12:09 Vitals Last Vital Signs Temp 98.7 F 04/10/21 08:00 Pulse 84 04/10/21 08:00 Resp 18 04/10/21 08:00 BP 159/88 04/10/21 08:00 Pulse Ox 94 04/10/21 08:00 Discharge Plan Discharge Patient Disposition: Xfer SNF Condition: Stable Prescriptions: New donepezil 5 mg Tablet 10 mg PO BEDTIME 30 Days Qty: 30 0RF amiodarone [Pacerone] 200 mg Tablet 200 mg PO DAILY 30 Days Qty: 30 0RF citalopram 20 mg Tablet 30 mg PO DAILY 230 Days Qty: 30 0RF diltiazem HCl 300 mg Capsule,Extended Release 24hr 300 mg PO DAILY 30 Days Qty: 30 0RF olanzapine 10 mg Tablet,Disintegrating 5 mg PO BEDTIME 30 Days Qty: 15 0RF linezolid 600 mg tablet 600 mg PO BID 6 Days Qty: 12 0RF Eliquis DVT-PE Treat 30D Start 5 mg (74 tabs) tablets,dose pack See Rx Instructions .ROUTE .COMPLEX Qty: 74 0RF Rx Instructions: orally per package directions Continued acetaminophen 650 mg Suppository 650 mg FL Q4H PRN (Reason: pain/fever) 0RF Zofran 4 mg Tablet 4 mg PO Q6H PRN (Reason: Nausea And Vomiting) 0RF Tylenol Ex Str Rapid Release 500 mg Tablet 1,000 mg PO QID PRN (Reason: Pain) 0RF Lorazepam Intensol 2 mg/mL Concentrate 1 mg PO Q4H PRN (Reason: Anxiety) 0RF Rx Instructions: for 14 days (starting 03/14/21) Pro-Stat 101 15-101 gram-kcal/30 mL Liquid 1 ea PO BID@08,20 0RF Discontinued diltiazem HCl 120 mg capsule,extended release 12 hr 120 mg PO DAILY@08 0RF Rx Instructions: hold if bp and or pulse <60 furosemide 20 mg Tablet 20 mg PO DAILY@08 0RF Risperdal 0.5 mg Tablet 0.5 mg PO DAILY@18 0RF Discharge Orders: Discharge Order (Routine); Ordered 04/10/21 Ordered By: Ramiro Durand Discharge Diet: As Directed Discharge Activity: Resume usual activity Patient Instructions: Opioid Safety Activity Restrictions/Additional Instructions: Dysphagia level 1 diet pur?e. Amiodarone and Cardizem for rate control. Patient should take linezolid 600 mg twice daily till 04/16. For now continue with Eliquis for DVT and anticoagulation prophylaxis for atrial fibrillation. Will need to have further discussion about goals of care with patient's DPOA regarding continuation/discontinuation of anticoagulation because patient is at high risk of fall and catastrophic bleeding. Patient is at high risk of dehydration/hypernatremia and uremia again because of poor oral intake from fluctuating mentation secondary to advanced dementia. Further goals of care discussion regarding the same has to be done with patient. Discharge Attestations Time Spent in Discharge Care*: greater than 30 min Specific Discharge Activities: educating and/or supporting family/caregiver, discussing with case assistant/social workers/dc planners, documenting/other paperwork and evaluating patient/reviewing data Status at Discharge: Cognitive status at discharge: moderately impaired cognition , Behavioral status at discharge: can be uncooperative , Functional status at discharge: other assisted ambulation , Overall status at discharge: patient is back to baseline Quality Metrics Clinical Quality Measures [ Venous Thromboembolism { Contraindication to Overlap Therapy: None; Overlap threrpy ordered; VTE Discharge Education: Follow-up arranged; Deep Vein Thrombosis/Pulmonary Embolism Present on Admission: No; Contraindication to Pharm VTE Prophylaxis: None; Pharmacological prophylaxis given;}] Coding Level of Care Code Acute Chg FW DC note History Comprehensive Exam Comprehensive Medical Decision Making High Complexity Diagnoses Atrial fibrillation with RVR I48.91 Bacteremia R78.81 Acute hypoxemic respiratory failure J96.01 Pneumonia due to COVID-19 virus U07.1; J12.82 TAPAN (acute kidney injury) N17.9 Delirium R41.0 Uremia N19 Hypernatremia E87.0 Diarrhea R19.7 DNR (do not resuscitate) Z66 Dehydration E86.0 CHF exacerbation I50.9 Congestive heart failure with left ventricular systolic dysfunction I50.20 Counseling regarding goals of care Z71.89
[2021-04-10] MEDS: ipratropium-albuterol 3 mL Neb INHALATION ×3 (09:18→22:05)
[2021-04-10] MEDS: enoxaparin 80 mg/0.8 mL Syringe 70 MG SUBCUT (10:59)
[2021-04-10] MEDS: linezolid 600 mg Tablet PO (12:47)
[2021-04-10 12:56] LABS: Glucose Point of Care 129 mg/dL (70-110)
[2021-04-10 16:52] LABS: Glucose Point of Care 111 mg/dL (70-110)
--- NOTE | 2021-04-11 01:05 | PC.NURSE ---
pt unable to void since braxton removal during day shift. bladder scan showed 480ml. pt voided small amount incont urine. I/O cath performed per Dr. Balbuena's order. 500ml drained. Pt tolerated well with no complications.
[2021-04-11] MEDS: ipratropium-albuterol 3 mL Neb INHALATION ×2 (03:44→09:30)
[2021-04-11 03:45] VITALS: PULSE 67; RESP 16; O2SAT 92
[2021-04-11 04:06] VITALS: PULSE 69; RESP 16; O2SAT 92
[2021-04-11 04:34] VITALS: BP 128/73; PULSE 63; RESP 18; TEMP 36.6; O2SAT 96
--- NOTE | 2021-04-11 05:01 | PC.NURSE ---
pt rested quietly thoughout night. pt refused pm meds. Pt refused accu checks. pt refused vitals intermittently, 0431 VSS. pt refused to wear tele during shift. no complaints of pain. hourly rounding done. pt frequently repositioned self independently every 2 hours. all needs met.
[2021-04-11 06:12] LABS: Glucose Point of Care 82 mg/dL (70-110)
[2021-04-11 07:49] VITALS: BP 109/58; PULSE 70; O2SAT 90
--- NOTE | 2021-04-11 09:18 | PC.SOCIAL ---
IMM update IMM updated with patient's daughter. Verbalized an understanding. Initialled, dated, timed, and placed in chart.
[2021-04-11 09:34] VITALS: PULSE 58; RESP 18; O2SAT 93
[2021-04-11 09:38] VITALS: PULSE 61
[2021-04-11 10:57] LABS: Glucose Point of Care 87 mg/dL (70-110)
--- NOTE | 2021-04-11 11:09 | PC.NURSE ---
Report called to [facility] nurse, Ivett at this time. Orders faxed and Tino Abrams called for transportation at this time.
== END 2021-04-11 12:16 | disposition skilled nursing facility (03) | DRG 871 ==
LOC: ER 14:11 → ICU 14:49 → CSU 04-03 19:58
PROVIDERS: Internal Medicine; Student in an Organized Health Care Education/Training Program; Admitting Provider Internal Medicine; Emergency Provider Emergency Medicine; Visit Provider Internal Medicine
DX: A41.9 Sepsis, unspecified organism (principal); R65.21 Severe sepsis with septic shock; U07.1 COVID-19; J12.82 Pneumonia due to coronavirus disease 2019; G93.41 Metabolic encephalopathy; J96.01 Acute respiratory failure with hypoxia; I50.21 Acute systolic (congestive) heart failure; D65 Disseminated intravascular coagulation [defibrination syndrome]; F05 Delirium due to known physiological condition; I48.20 Chronic atrial fibrillation, unspecified; E87.0 Hyperosmolality and hypernatremia; N17.9 Acute kidney failure, unspecified; F03.90 Unspecified dementia, unspecified severity, without behavioral disturbance, psychotic disturbance, mood disturbance, and anxiety; E87.6 Hypokalemia; Z66 Do not resuscitate; E86.0 Dehydration; I95.9 Hypotension, unspecified; Z79.01 Long term (current) use of anticoagulants; B95.2 Enterococcus as the cause of diseases classified elsewhere
CPT/HCPCS: 36415; 36416; 36569; 36600; 51702; 70450; 71045; 74176; 80048; 80051; 80053; 80202; 81001; 82330; 82803; 82805; 82962; 83605; 83735; 83880; 84145; 84439; 84443; 84484; 85007; 85025; 85362; 85378; 85384; 85610; 85730; 86140; 87040; 87077; 87150; 87186; 87205; 87635; 87641; 92526; 92610; 93005; 93306; 93971; 94640; 96365; 96367; 96372; 96376; 99285; C1751; J0282; J0696; J1100; J1160; J1630; J1644; J1650; J1815; J1940; J2060; J2270; J3370; J3475; J3480; J3490; J7030; J7040; J7050; J7060; J7626; P9047

== ENCOUNTER 2022-01-15 11:32 | Outpatient (CLI) | payer MEDICARE, SELFPAY ==
[2022-01-15 11:54] LABS: Blood Urine 2+ (Negative); Glucose Urine UA Norm (Normal); Ketones Urine Negative (Negative); Protein Urine Neg (Negative); Specific Gravity, Urine 1.015 (1.005-1.030); Urine Appearance Hazy (CLEAR); Urine Color Yellow (Yellow); pH Urine 6 (5-7)
[2022-01-15 11:55] LABS: Bilirubin Urine Neg (Negative); Leukocyte Esterase Urine 2+ (Negative); Nitrate Urine Negative (Negative); Urobilinogen Urine Neg (Negative)
[2022-01-15 12:01] LABS: Bacteria Urine 1+ /hpf; Squamous Epithelial Cell Urine 15-25 /hpf (0-5)
[2022-01-15 12:02] LABS: Amorphous Sediment Urine 1+ /hpf
[2022-01-15 12:03] LABS: Add Urine Culture? No
== END 2022-01-15 11:33 | disposition home or self-care (01) ==
PROVIDERS: Visit Provider Nurse Practitioner Family
DX: R45.1 Restlessness and agitation (principal)
CPT/HCPCS: 81001

== ENCOUNTER 2022-02-08 21:42 | Emergency (ER) | payer MEDICARE, SELFPAY ==
[2022-02-08 21:51] VITALS: BP 176/101; PULSE 63; RESP 17; TEMP 37; O2SAT 97; BMI 29.8
--- NOTE | 2022-02-08 21:59 | W.ED.FALL ---
HPI - Fall General: Chief Complaint: Head Injury Stated Complaint: FALL Time Seen by Provider: 02/08/22 21:59 Limitations: altered mental status History of Present Illness: Ms. Adams is a 81-year-old lady presenting from a skilled nursing due to fall under unclear circumstances. She provides very limited history as to the circumstances of her fall but does complain of right facial pain where a large laceration is present. History is otherwise limited by patient's mental state. Fall from: standing Place fall occurred: skilled nursing/SNF Review of Systems General: Reports: ROS unobtainable due to mental status PFSH ED PFSH: Medical History Acute hypoxemic respiratory failure Atrial fibrillation CHF exacerbation Congestive heart failure with left ventricular systolic dysfunction Delirium Dementia DNR (do not resuscitate) Pneumonia due to COVID-19 virus Social History Smoking and tobacco status: never smoked Alcohol intake: never Physical Exam Const: COMMON NORMALS: alert GENERAL APPEARANCE: cooperative and well developed HENMT: COMMON NORMALS: normocephalic; head/scalp not atraumatic HEAD & SCALP: normocephalic; not atraumatic THROAT: posterior oropharynx normal OTHER: Right facial periorbital ecchymosis and edema. Large laceration. ED head trauma. No mendez signs or raccoon eyes. No hemotympanum. No otorrhea or rhinorrhea. Jaw alignment normal. Dentition baseline. No obvious bony step-offs. No septal hematoma. No evidence of ocular entrapment. Eye: COMMON NORMALS: conjunctivae normal CONJUNCTIVA: Yes conjunctivae normal SCLERA: sclerae normal Neck/C-Spine: COMMON NORMALS: supple GENERAL: Yes trachea midline Resp: COMMON NORMALS: normal respiratory effort EFFORT & INSPECTION: Yes able to speak in complete sentences Cardio: COMMON NORMALS: regular rate and regular rhythm RATE: regular rate RHYTHM: regular rhythm GI: COMMON NORMALS: Soft to palpation PALPATION: Yes Soft to palpation, Yes Tenderness to palpation present (GI), No Guarding due to palpation present (GI) and No Rigid due to palpation Extremity: GENERAL: Yes normal exam except as noted and No edema Neuro: COMMON NORMALS: moves all extremities, no focal motor deficits and no sensory deficits noted SENSORIUM/ORIENTATION: Yes alert and Yes Orientation impaired Procedures Laceration Laceration 1: Site: face Side (If applicable): right Size (cm): 8 Description: stellate and irregular Depth: involves muscle layer Local Anesthetic: lidocaine 1% and with epi Amount of anesthesia used (mL): 14 Pre-repair: wound explored and irrigated extensively Skin layer closed with: nylon and vicryl Size (cm): 3-0 and 5-0 Number of sutures: 8 Technique: simple, interrupted and running Subcutaneous layer closed with: vicryl Size: 4-0 Number of sutures: 5 Technique: simple, interrupted Muscle layer closed with: vicryl Size: 4-0 Number of sutures: 2 Technique: simple, interrupted Course Vital Signs: Vital signs: Vital Signs Temperature 98.6 F 02/08/22 21:51 Pulse Rate 84 02/09/22 01:03 Respiratory Rate 16 02/09/22 01:03 Blood Pressure 148/88 02/09/22 01:03 Pulse Oximetry 98 02/09/22 01:03 Oxygen Delivery Me thod 02/08/22 23:44 MDM - Fall Medical Decision Making 81-year-old lady presenting due to fall of unclear circumstances patient is pleasantly confused. Head to toe exam performed. EKG notable for sinus rhythm with interventricular conduction delay. I disagree with electronic interpretation. No STEMI. Given unclear history as well as physical exam findings labs and imaging are appropriate. There is no significant hematologic abnormality. Metabolic panel without significant derangement, creatinine is mildly elevated. CT of the head and cervical spine negative for acute fracture or internal injury. CT max face negative for facial bone fracture. CT chest abdomen pelvis negative for acute traumatic injury. During ED course patient given analgesia and Tdap. Laceration repaired as noted above. It was a complex laceration as multiple deep sutures were required for hemostasis and closure of the layers. Wound itself was irregular. Given continued mild oozing and irregularity of wound margins wound was approximated using nylon and then a running smaller suture. Wound was reexamined after completion of repair and direct pressure and hemostasis was achieved. Most likely etiology of patient's fall is unclear, injuries included soft tissue injuries as well as large forehead laceration and facial contusion. The results of ED evaluation were discussed with the patient including prescriptions and/or symptomatic cares (if applicable) including appropriate and responsible use, followup plan, and return precautions. The patient verbalized understanding and felt safe for discharge. Medical Records I reviewed the patient's medical records. Lab Data I reviewed the patient's lab results. 02/08/22 23:49 02/08/22 23:49 Radiology Impressions Cervical Spine CT 02/08/22 22:06 IMPRESSION: There are no acute osseous findings. Chest/Abdomen/Pelvis CT 02/08/22 22:06 IMPRESSION: 1. No evidence of acute injury. 2. No aortic dissection. IMPRESSION: 1. No evidence of acute injury. 2. Diverticulosis without diverticulitis. COMMENTS: Consistent with the [employer]'s Incidental Findings Committee white paper (J Am Margaret Radiol 2018): Any incidental renal lesion less than 1 cm or classified as too small to characterize, or any incidental cystic renal lesion characterized as simple-appearing, is likely benign. No follow-up imaging is recommended for these lesions per consensus recommendations based on imaging criteria. Face CT 02/08/22 22:06 IMPRESSION: 1. There are no acute osseous findings. 2. Soft tissue swelling and hematoma formation extends from the forehead to the maxillary region on the right. Head CT 02/08/22 22:06 IMPRESSION: There are no acute intracranial findings. Laboratory Results WBC 8.5 10^3/uL (4.0-10.0) 02/08/22 23:49 RBC 4.60 10^6/uL (4.1-5.3) 02/08/22 23:49 Hgb 12.4 g/dL (11.5-15.3) 02/08/22 23:49 Hct 41.0 % (37.0-47.0) 02/08/22 23:49 MCV 89.1 fl (81-99) 02/08/22 23:49 MCH 27.0 pg (28.0-34.0) L 02/08/22 23:49 MCHC 30.2 g/dL (30.0-36.0) 02/08/22 23:49 RDW 15.5 % (12.1-15.1) H 02/08/22 23:49 Plt Count 147 10^3/cmm (130-400) 02/08/22 23:49 MPV 11.5 fL (7.4-10.4) H 02/08/22 23:49 Neut % (Auto) 77.0 % 02/08/22 23:49 Lymph % (Auto) 12.2 % 02/08/22 23:49 [place] % (Auto) 8.6 % 02/08/22 23:49 Eos % (Auto) 1.8 % 02/08/22 23:49 Baso % (Auto) 0.2 % 02/08/22 23:49 Neut # (Auto) 6.57 10^3/uL (1.8-7.7) 02/08/22 23:49 Lymph # (Auto) 1.0 10^3/uL (0.8-4.8) 02/08/22 23:49 [place] # (Auto) 0.7 10^3/uL (0.2-0.9) 02/08/22 23:49 Eos # (Auto) 0.2 10^3/uL (0.0-0.8) 02/08/22 23:49 Baso # (Auto) 0.0 10^3/uL (0.0-0.1) 02/08/22 23:49 Nucleated RBC % (auto) 0 % 02/08/22 23:49 Nucleated RBCs # 0.0 /100WBC 02/08/22 23:49 Sodium 137 mmol/L (136-145) 02/08/22 23:49 Potassium 4.7 mmol/L (3.5-5.1) 02/08/22 23:49 Chloride 105 mmol/L (98-107) 02/08/22 23:49 Carbon Dioxide 21 mmol/L (22-29) L 02/08/22 23:49 Anion Gap 15.7 (5-19) 02/08/22 23:49 BUN 57 mg/dL (8-23) H 02/08/22 23:49 Creatinine 1.3 mg/dL (0.5-0.9) H 02/08/22 23:49 GFR Calculation Not Reportable 02/08/22 23:49 Glucose 126 mg/dL (65-115) H 02/08/22 23:49 POC Glucose 129 mg/dL (70-110) H 02/08/22 23:51 Calculated Osmolality 301 mOsm/kg (285-295) H 02/08/22 23:49 Calcium 9.2 mg/dL (8.5-10.5) 02/08/22 23:49 Discharge Plan Discharge Patient Disposition: [facility] Clinical Impression: Fall, Closed head injury, Complex laceration of forehead, Chronic anticoagulation, Dehydration Condition: Stable Discharge Orders: Discharge ED (Routine); Ordered 02/09/22 Ordered By: Magdaleno Goyal Discharge Diet: Usual diet Discharge Activity: Increase activity as tolerated Patient Instructions: Dehydration (ED), Care For Your Stitches (ED), Head Injury (ED) Activity Restrictions/Additional Instructions: Thank you for visiting the emergency department. You were seen and evaluated for fall with head injury. You have a complex laceration without other acute injuries identified. Sutures require removal in 10 days. Please watch daily for signs of infection. Please have evaluation by primary care provider within the next 2 to 4 days. Perform local wound care and keep the area clean and dry. You may use [id number] medications such as acetaminophen and ibuprofen for pain however please do not exceed the daily recommended dosage as listed on the packaging and please keep in mind that many namebrand medications contain the same active ingredients. Please avoid these medications if previously instructed to do so by another physician due to other underlying medical condition. Return to the emergency department for bleeding uncontrolled by direct pressure, evidence of infection, or anything else that you are concerned about and feel needs emergency department evaluation. Coding Level of Care Code ED [employer] for Angelica Verdin
[2022-02-08 22:02] VITALS: BP 176/62; PULSE 95; RESP 17; O2SAT 97
--- NOTE | 2022-02-08 22:06 | CTR_ITS ---
PROCEDURE INFORMATION: Exam: CT Maxillofacial Without Contrast Exam date and time: 02/08/2022 10:52 PM Age: 81 years old Clinical indication: Injury or trauma; Fall; Blunt trauma (contusions or hematomas); Cheek bone and eyelid and forehead; Upper right; Additional info: Fall, AMS TECHNIQUE: Imaging protocol: Computed tomography of the face without contrast. Radiation optimization: All CT scans at this facility use at least one of these dose optimization techniques: automated exposure control; mA and/or kV adjustment per patient size (includes targeted exams where dose is matched to clinical indication); or iterative reconstruction. COMPARISON: CT head wo con* [id number] 03/31/2021 5:01 PM RADIATION DOSE METRICS: Total DLP (mGy-cm): 269.7 FINDINGS: Orbital cavities: Orbits are normal. Globes are unremarkable. Bones/joints: Sclerosis, joint space narrowing and bone spurring is seen within the visualized facets of the cervical spine compatible with osteoarthritic changes. Loss of disc height is seen within the visualized cervical spine compatible with degenerative disc disease. Paranasal sinuses: Normal. No air-fluid levels. Soft tissues: Prominent soft tissue swelling and hematoma formation seen within the right frontal scalp, right periorbital, zygomatic and maxillary regions. Dental: Edentulous patient. CT/CT facial bones wo con* [id number] IMPRESSION: 1. There are no acute osseous findings. 2. Soft tissue swelling and hematoma formation extends from the forehead to the maxillary region on the right.
--- NOTE | 2022-02-08 22:06 | CTR_ITS ---
PROCEDURE INFORMATION: Exam: CT Cervical Spine Without Contrast Exam date and time: 02/08/2022 10:44 PM Age: 81 years old Clinical indication: Injury or trauma; Fall; Blunt trauma; Additional info: Fall, AMS TECHNIQUE: Imaging protocol: Computed tomography of the cervical spine without contrast. Radiation optimization: All CT scans at this facility use at least one of these dose optimization techniques: automated exposure control; mA and/or kV adjustment per patient size (includes targeted exams where dose is matched to clinical indication); or iterative reconstruction. COMPARISON: CT head wo con* [id number] 03/31/2021 5:01 PM RADIATION DOSE METRICS: Total DLP (mGy-cm): 269.7 FINDINGS: Bones/joints: Sclerosis, joint space narrowing and bone spurring is seen within the facets of the cervical spine compatible with diffuse osteoarthritic changes. There is a loss of disc height seen within the cervical spine compatible with degenerative disc disease. Prominent bridging osteophytes extend from C4 to C7. Lungs: Lung apices are normal. Soft tissues: Unremarkable. CT/CT cervical spin wo con* [id number] IMPRESSION: There are no acute osseous findings.
--- NOTE | 2022-02-08 22:06 | CTR_ITS ---
PROCEDURE INFORMATION: Exam: CT Head Without Contrast Exam date and time: 02/08/2022 10:44 PM Age: 81 years old Clinical indication: Injury or trauma; Fall; Abrasion and blunt trauma (contusions or hematomas); Face; Additional info: Fall, AMS TECHNIQUE: Imaging protocol: Computed tomography of the head without contrast. Radiation optimization: All CT scans at this facility use at least one of these dose optimization techniques: automated exposure control; mA and/or kV adjustment per patient size (includes targeted exams where dose is matched to clinical indication); or iterative reconstruction. COMPARISON: CT head wo con* [id number] 03/31/2021 5:01 PM RADIATION DOSE METRICS: Total DLP (mGy-cm): 1085.98 FINDINGS: Brain: There is mild diffuse cerebral atrophy. Patchy areas of hypoattenuation are seen in the deep white matter of the cerebral hemispheres bilaterally compatible with mild deep white matter microvascular disease. Cerebral ventricles: No ventriculomegaly. Paranasal sinuses: Visualized sinuses are unremarkable. No fluid levels. Mastoid air cells: Visualized mastoid air cells are well aerated. Bones/joints: There are no bony abnormalities. Soft tissues: Soft tissue swelling and hematoma formation seen in the forehead on the right. There is prominent soft tissue swelling and hematoma formation seen within the maxillary and zygomatic regions on the right. There is swelling and bruising seen in the right periorbital region. CT/CT head wo con* [id number] IMPRESSION: There are no acute intracranial findings.
--- NOTE | 2022-02-08 22:06 | CTR_ITS ---
PROCEDURE INFORMATION: Exam: CT Chest With Contrast; Diagnostic Exam date and time: 02/08/2022 10:51 PM Age: 81 years old Clinical indication: Injury or trauma; Fall; Abdominal wall; Blunt trauma (contusions or hematomas); Additional info: Fall, AMS TECHNIQUE: Imaging protocol: Diagnostic computed tomography of the chest with contrast. Radiation optimization: All CT scans at this facility use at least one of these dose optimization techniques: automated exposure control; mA and/or kV adjustment per patient size (includes targeted exams where dose is matched to clinical indication); or iterative reconstruction. Contrast material: OMNIPAQUE 350; Contrast volume: 95 ml; Contrast route: INTRAVENOUS (IV); COMPARISON: CR XR chest 1V portable [id number] 04/07/2021 11:27 AM RADIATION DOSE METRICS: Total DLP (mGy-cm): 1621.38 FINDINGS: Lungs: Unremarkable. No consolidation. No masses. Pleural spaces: Unremarkable. No pneumothorax. No pleural effusion. Heart: Click mild cardiomegaly Lymph nodes: Unremarkable. No enlarged lymph nodes. Vasculature: No aortic dissection. There is moderate atherosclerotic disease. Bones/joints: Unremarkable. No acute fracture. Soft tissues: Unremarkable. PROCEDURE INFORMATION: Exam: CT Abdomen And Pelvis With Contrast Exam date and time: 02/08/2022 10:51 PM Age: 81 years old Clinical indication: Injury or trauma; Fall; Abdominal wall; Blunt trauma (contusions or hematomas); Additional info: Fall, AMS TECHNIQUE: Imaging protocol: Computed tomography of the abdomen and pelvis with contrast. Radiation optimization: All CT scans at this facility use at least one of these dose optimization techniques: automated exposure control; mA and/or kV adjustment per patient size (includes targeted exams where dose is matched to clinical indication); or iterative reconstruction. Contrast material: OMNIPAQUE 350; Contrast volume: 95 ml; Contrast route: INTRAVENOUS (IV); COMPARISON: CT abdomen pelvis wo con [id number] 04/01/2021 9:16 PM RADIATION DOSE METRICS: Total DLP (mGy-cm): 1621.38 FINDINGS: Lungs: The lung bases are clear. No effusion Liver: Normal. No mass. Gallbladder and bile ducts: There has been a cholecystectomy. Pancreas: Normal. No ductal dilation. Spleen: Normal. No splenomegaly. Adrenal glands: Normal. No mass. Kidneys and ureters: There is a subcentimeter low-attenuation lesion/lesions, of the left kidney which are too small to accurately characterize by CT. Stomach and bowel: Diverticulosis without diverticulitis. Appendix: No evidence of appendicitis. Intraperitoneal space: Unremarkable. No free air. No significant fluid collection. Vasculature: Unremarkable. No abdominal aortic aneurysm. Lymph nodes: Unremarkable. No enlarged lymph nodes. Urinary bladder: Unremarkable as visualized. Reproductive: Unremarkable as visualized. Bones/joints: Unremarkable. No acute fracture. Soft tissues: Unremarkable. CT/CT chest abd pel w con* IMPRESSION: 1. No evidence of acute injury. 2. No aortic dissection. IMPRESSION: 1. No evidence of acute injury. 2. Diverticulosis without diverticulitis. COMMENTS: Consistent with the [employer]'s Incidental Findings Committee white paper (J Am Margaret Radiol 2018): Any incidental renal lesion less than 1 cm or classified as too small to characterize, or any incidental cystic renal lesion characterized as simple-appearing, is likely benign. No follow-up imaging is recommended for these lesions per consensus recommendations based on imaging criteria.
--- NOTE | 2022-02-08 22:07 | ECG_ITS ---
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 Measurements Intervals [place] Rate: 71 P: 18 NE: 176 QRS: -56 QRSD: 150 T: 69 QT: 463 QTc: 506 Interpretive Statements SINUS RHYTHM INTRAVENTRICULAR CONDUCTION DELAY [130+ ms QRS DURATION] LATERAL MYOCARDIAL INFARCTION , OF INDETERMINATE AGE Compared to ECG 04/07/2021 12:25:12 Atrial-paced complex(es) or rhythm no longer present Left-axis deviation no longer present Prolonged QT interval no longer present Myocardial infarct finding still present Electronically Signed On 02-09-2022 5:50:02 INSOLE COVERER by Vane Epps M.D. [id number]
[2022-02-08] MEDS: iohexol 350 mg/mL 500 mL Btl (per mL) IV (23:02)
[2022-02-08] MEDS: tetanus-dipt-pertussis 0.5 mL SDV IM (23:32)
[2022-02-08] MEDS: morphine 4 mg/mL SDV 1 mL 2 MG IVP (23:32)
[2022-02-08 23:44] VITALS: BP 184/88; PULSE 68; RESP 14; O2SAT 92
[2022-02-08 23:54] LABS: Glucose Point of Care 129 mg/dL (70-110)
[2022-02-08 23:54] LABS: Basophils % 0.2 %; Eosinophils # 0.2 10^3/uL (0.0-0.8); Eosinophils % 1.8 %; Hemoglobin 12.4 g/dL (11.5-15.3); Lymphocytes % 12.2 %; Mean Corpuscular HGB Conc 30.2 g/dL (30.0-36.0); Mean Corpuscular Volume 89.1 fl (81-99); Mean Platelet Volume 11.5 fL (7.4-10.4); Monocytes # 0.7 10^3/uL (0.2-0.9); Monocytes % 8.6 %; Neutrophils # 6.57 10^3/uL (1.8-7.7); Nucleated Red Blood Cells % 0 %; Platelet Count 147 10^3/cmm (130-400); Red Cell Distribution Width 15.5 % (12.1-15.1); White Blood Count 8.5 10^3/uL (4.0-10.0)
[2022-02-09 00:14] LABS: Blood Urea Nitrogen 57 mg/dL (8-23); Calcium 9.2 mg/dL (8.5-10.5); Carbon Dioxide 21 mmol/L (22-29); Chloride 105 mmol/L (98-107); Glucose 126 mg/dL (65-115); Osmolality Calculated 301 mOsm/kg (285-295); Sodium 137 mmol/L (136-145)
[2022-02-09 00:17] LABS: Anion Gap 15.7 (5-19); Potassium 4.7 mmol/L (3.5-5.1)
[2022-02-09 01:03] VITALS: BP 148/88; PULSE 84; RESP 16; O2SAT 98
== END 2022-02-09 01:08 ==
PROVIDERS: Emergency Provider Emergency Medicine
DX: S09.8XXA Other specified injuries of head, initial encounter (principal); S01.81XA Laceration without foreign body of other part of head, initial encounter; E86.0 Dehydration; D68.318 Other hemorrhagic disorder due to intrinsic circulating anticoagulants, antibodies, or inhibitors; Z79.01 Long term (current) use of anticoagulants; I50.9 Heart failure, unspecified; F03.90 Unspecified dementia, unspecified severity, without behavioral disturbance, psychotic disturbance, mood disturbance, and anxiety; W19.XXXA Unspecified fall, initial encounter; Y92.129 Unspecified place in nursing home as the place of occurrence of the external cause; Z23 Encounter for immunization
CPT/HCPCS: 13132; 13133; 36416; 70450; 70486; 71260; 72125; 74177; 80048; 82962; 85025; 90471; 90715; 93005; 96374; 99285; J2270; Q9967

== ENCOUNTER 2022-02-23 16:36 | Emergency (ER) | payer MEDICARE, SELFPAY ==
--- NOTE | 2022-02-23 16:44 | XRR_ITS ---
PROCEDURE INFORMATION: Exam: XR Chest Exam date and time: 02/23/2022 4:47 PM Age: 81 years old Clinical indication: Cough and dyspnea; Additional info: Dyspnea/cough TECHNIQUE: Imaging protocol: Radiologic exam of the chest. Views: 1 view. COMPARISON: CT chest abd pel w con* 02/08/2022 10:51 PM FINDINGS: Tubes, catheters and devices: There is a dual-lead AICD with leads positioned in the right atrium and right ventricle. Lungs: There is no consolidation. There is mild subsegmental atelectasis or scarring in the lower lungs bilaterally corresponding to the findings on chest CT 02/08/2022. Pleural spaces: There is no pleural effusion or pneumothorax. Heart/Mediastinum: The cardiac silhouette is within normal limits of size given AP technique. Bones/joints: Bones are unremarkable. XR/XR chest 1V portable [id number] IMPRESSION: No acute findings.
--- NOTE | 2022-02-23 16:44 | CTR_ITS ---
PROCEDURE INFORMATION: Exam: CT Head Without Contrast Exam date and time: 02/23/2022 6:09 PM Age: 81 years old Clinical indication: Injury or trauma; Fall; Blunt trauma (contusions or hematomas); Consciousness not specified; Additional info: AMS S/P fall, unknown time period TECHNIQUE: Imaging protocol: Computed tomography of the head without contrast. Radiation optimization: All CT scans at this facility use at least one of these dose optimization techniques: automated exposure control; mA and/or kV adjustment per patient size (includes targeted exams where dose is matched to clinical indication); or iterative reconstruction. COMPARISON: CT head wo con* [id number] 02/08/2022 10:44 PM RADIATION DOSE METRICS: Total DLP (mGy-cm): 1114.98 FINDINGS: Brain: There is diffuse cerebral atrophy and chronic microvascular white matter disease. There is no acute intracranial hemorrhage. Cerebral ventricles: There is mild ex vacuo dilation of the lateral ventricles. The basal cisterns are unremarkable. Pituitary gland and sella: Empty sella noted. There is mild expansion of the sella turcica. This is a chronic finding. Paranasal sinuses: The paranasal sinuses are clear. Mastoid air cells: Trace left mastoid effusion. Bones/joints: Unremarkable. No acute fracture. Soft tissues: right facial soft tissue hematoma along the zygomatic arch. Right frontal scalp laceration. CT/CT head wo con* [id number] IMPRESSION: 1. No acute intracranial abnormality. 2. Right facial hematoma. 3. Right frontal scalp laceration. 4. Trace left mastoid effusion. 5. Incidental findings above.
[2022-02-23 16:49] VITALS: PULSE 71; RESP 14; TEMP 36.4; O2SAT 97; BMI 28.2
[2022-02-23 16:57] VITALS: BP 114/83; PULSE 60; RESP 16; O2SAT 95
[2022-02-23 17:00] LABS: ABG PCO2 40.7 mmHg (35-45); ABG PH Result 7.42 (7.35-7.45); Alveolar-Arterial Oxygen Gradi 4.2 mmHg (5-10); Base Excess ABG 1.8 mmol/L (-2.0-2.0); Blood Gas Allen Test Pos; Blood Gas Operator Identificat WALCI; Blood Gas Sample Site Radial, right; Blood Gas Sample Type Arterial; Carboxyhemoglobin 1.3 %THgb (0.4-20.1); HCO3 ABG 26.5 mmol/L (22-26); HGB O2 Sat 92.2 % (95-100); Ionized Calcium Level - ABG 1.2 mmol/L (1.1-1.4); Oxygen Saturation ABG 94.4; PO2 ABG 66.9 mmHg (80.0-100.0); Potassium Level - ABG 4.1 mmol/L (3.5-5.0); Total Hemoglobin 12.7 g/dL (12-16)
--- NOTE | 2022-02-23 17:18 | W.ED.AMS ---
HPI - Altered Mental Status General: Chief Complaint: Altered Mental Status Stated Complaint: AMS Time Seen by Provider: 02/23/22 16:43 PFSH ED PFSH: Medical History Acute hypoxemic respiratory failure Atrial fibrillation CHF exacerbation Congestive heart failure with left ventricular systolic dysfunction Delirium Dementia DNR (do not resuscitate) Pneumonia due to COVID-19 virus Social History Smoking and tobacco status: never smoked Alcohol intake: never Course Vital Signs: Vital signs: Vital Signs Temperature 97.5 F L 02/23/22 16:49 Pulse Rate 71 02/23/22 16:49 Respiratory Rate 14 02/23/22 16:49 Pulse Oximetry 97 02/23/22 16:49 Oxygen Delivery Me thod 02/23/22 16:49 MDM - Altered Mental Status Lab Data Laboratory Results Specimen Type Arterial 02/23/22 16:49 Sample Site Radial, right 02/23/22 16:49 ABG pH 7.42 (7.35-7.45) 02/23/22 16:49 ABG pCO2 40.7 mmHg (35-45) 02/23/22 16:49 ABG pO2 66.9 mmHg (80.0-100.0) L 02/23/22 16:49 ABG HCO3 26.5 mmol/L (22-26) H 02/23/22 16:49 ABG O2 Saturation 94.4 02/23/22 16:49 ABG Base Excess 1.8 mmol/L (-2.0-2.0) 02/23/22 16:49 Dae Test Pos 02/23/22 16:49 A-a O2 Gradient 4.2 mmHg (5-10) L 02/23/22 16:49 Hematocrit 39.0 % (37-47) 02/23/22 16:49 Hgb O2 Saturation 92.2 % (95-100) L 02/23/22 16:49 Carboxyhemoglobin 1.3 %THgb (0.4-20.1) 02/23/22 16:49 Methemoglobin 1.0 % (0.4-1.5) 02/23/22 16:49 Total Hemoglobin 12.7 g/dL (12-16) 02/23/22 16:49 Sodium 144.0 mmol/L (131-143) H 02/23/22 16:49 Potassium 4.1 mmol/L (3.5-5.0) 02/23/22 16:49 Glucose 111.0 mg/dL (70-115) 02/23/22 16:49 Ionized Calcium 1.2 mmol/L (1.1-1.4) 02/23/22 16:49 O2 Delivery Device None 02/23/22 16:49 FiO2 21.0 % 02/23/22 16:49 Roofer Apprentice ID Bassam 02/23/22 16:49 Discharge Plan Discharge Condition: Stable Prescriptions: No Action acetaminophen 650 mg Suppository 650 mg ND Q4H PRN (Reason: pain/fever) Zofran 4 mg Tablet 4 mg PO Q6H PRN (Reason: Nausea And Vomiting) acetaminophen 500 mg Tablet 1,000 mg PO QID PRN (Reason: Pain) Lorazepam Intensol 2 mg/mL Concentrate 1 mg PO Q4H PRN (Reason: Anxiety) Rx Instructions: for 14 days (starting 03/14/21) amino acids-protein hydrolys 15-101 gram-kcal/30 mL Liquid 1 ea PO BID@08,20 Eliquis DVT-PE Treat 30D Start 5 mg (74 tabs) tablets,dose pack See Rx Instructions .ROUTE .COMPLEX Qty: 74 0RF Rx Instructions: orally per package directions Coding Level of Care Code ED Accounting Practice Manager for Angelica Verdin
--- NOTE | 2022-02-23 17:23 | CTR_ITS ---
PROCEDURE INFORMATION: Exam: CT Cervical Spine Without Contrast Exam date and time: 02/23/2022 6:16 PM Age: 81 years old Clinical indication: Injury or trauma; Fall; Blunt trauma; Additional info: Fall, unknown amount of time down TECHNIQUE: Imaging protocol: Computed tomography of the cervical spine without contrast. Radiation optimization: All CT scans at this facility use at least one of these dose optimization techniques: automated exposure control; mA and/or kV adjustment per patient size (includes targeted exams where dose is matched to clinical indication); or iterative reconstruction. COMPARISON: CT cervical spin wo con* [id number] 02/08/2022 10:44 PM RADIATION DOSE METRICS: Total DLP (mGy-cm): 246.17 FINDINGS: Bones/joints: Spinal alignment is normal. Vertebral body height is maintained. There is moderate degenerative disc disease in the cervical spine. There is moderate multilevel facet spondylosis. No acute fracture. There is mild multilevel spinal canal stenosis. Lungs: Lung apices are clear. Vasculature: There is mild atherosclerotic disease of the carotid arteries bilaterally. Soft tissues: Soft tissues in the neck and thoracic inlet are unremarkable. CT/CT cervical spin wo con* [id number] IMPRESSION: No acute fracture.
--- NOTE | 2022-02-23 17:23 | CTR_ITS ---
PROCEDURE INFORMATION: Exam: CT Maxillofacial Without Contrast Exam date and time: 02/23/2022 6:12 PM Age: 81 years old Clinical indication: Injury or trauma; Fall; Blunt trauma (contusions or hematomas); Cheek bone and eyelid and nose and orbit/periorbital; Upper right TECHNIQUE: Imaging protocol: Computed tomography of the face without contrast. Radiation optimization: All CT scans at this facility use at least one of these dose optimization techniques: automated exposure control; mA and/or kV adjustment per patient size (includes targeted exams where dose is matched to clinical indication); or iterative reconstruction. COMPARISON: CT facial bones wo con* [id number] 02/08/2022 10:44 PM RADIATION DOSE METRICS: Total DLP (mGy-cm): 724.88 FINDINGS: Orbital cavities: Globes are intact. Orbital contents are normal. Bones/joints: The mandible is intact. Condylar alignment is normal. The maxilla is intact. Nasal bones are intact. The bony orbits are intact. Zygomatic arches are intact. Pterygoid plates are intact. The skull base and upper cervical spine are intact. Paranasal sinuses: Normal. No air-fluid levels. Soft tissues: Subcutaneous hematoma in the right zygomatic and pre maxillary region measuring up to 3.3 x 3.2 x 1.5 cm. Other findings: There is expansion of the sella turcica. Empty sella was demonstrated on prior head CT 03/31/2021. CT/CT facial bones wo con* [id number] IMPRESSION: 1. No acute fracture. 2. Right facial soft tissue hematoma.
--- NOTE | 2022-02-23 17:39 | W.ED.FALL ---
Documented by User: Alfonzo Nolan DO 03/09/22 07:29 HPI - Fall General: Chief Complaint: Altered Mental Status Stated Complaint: AMS Time Seen by Provider: 02/23/22 16:43 Source: patient Mode of arrival: EMS Limitations: altered mental status History of Present Illness: 81-year-old female presents emergency room with complaint of fall and altered mental status. Evidently she fell a week ago she has significant bruising to the face today she has altered mental status she is poorly responsive. She is alert to herself she will wake up she will answer some questions but she does not really know where she is at or what is going on she was aware she is at the hospital no report of nausea or vomiting. She is not able to give any further history she is on Eliquis has extensive bruising of the right side of her face that appears to be somewhat in the range of 5 days old. complaint: other (Altered mental status) Onset (ago): week(s) (1) Fall from: standing Place fall occurred: skilled nursing/SNF Loss of consciousness: Unsure Prolonged down time: no Symptoms prior to fall: none Context: tripped/slipped Associated symptoms-after fall: Denies abdominal pain or chest pain Review of Systems General: Reports: ROS unobtainable due to mental status (Chronic dementia Limited review of systems) Card: Denies: chest pain Resp: Denies: dyspnea GI: Denies: abdominal pain : Denies: dysuria [facility] ED PFSH: Medical History Acute hypoxemic respiratory failure Atrial fibrillation CHF exacerbation Congestive heart failure with left ventricular systolic dysfunction Delirium Dementia DNR (do not resuscitate) Pneumonia due to COVID-19 virus Social History Smoking and tobacco status: never smoked Alcohol intake: never Physical Exam Const: GENERAL APPEARANCE: cooperative and comfortable HENMT: COMMON NORMALS: normocephalic, external ears normal, EAC's normal, TM's normal bilaterally, Normal nasal mucous membranes and turbinates present, moist oral mucous membranes and oropharynx normal HEAD & SCALP: normocephalic NOSE: Normal nasal mucous membranes and turbinates present EXTERNAL EAR: Yes external ears normal EXTERNAL AUDITORY CANAL: EAC's normal TYMPANIC MEMBRANE: TM's normal bilaterally Eye: COMMON NORMALS: Equal, round and reactive pupils present, EOMs intact bilaterally, conjunctivae normal and no scleral icterus CONJUNCTIVA: Yes conjunctivae normal PUPIL: Yes Equal, round and reactive pupils present Neck/C-Spine: COMMON NORMALS: full ROM, no lymphadenopathy, supple and no JVD Resp: COMMON NORMALS: normal respiratory effort, No retractions, No use of accessory muscles and clear to auscultation bilaterally AUSCULTATION: clear to auscultation bilaterally Cardio: COMMON NORMALS: no JVD, regular rate, regular rhythm and No murmurs present (Cardio) RATE: regular rate RHYTHM: regular rhythm GI: COMMON NORMALS: Soft to palpation and No hepatosplenomegaly present AUSCULTATION: Yes normoactive bowel sounds PALPATION: Yes Soft to palpation, No Tenderness to palpation present (GI), No Guarding due to palpation present (GI) and Yes No hepatosplenomegaly present Extremity: COMMON NORMALS: normal to inspection, capillary refill normal, no clubbing, cyanosis or edema, no calf tenderness and no pedal edema Skin: COMMON NORMALS: no rashes or lesions noted GENERAL SKIN EXAM: no rashes or lesions noted Course Vital Signs: Vital signs: Vital Signs Temperature 97.5 F L 02/23/22 16:49 Pulse Rate 71 02/23/22 20:30 Respiratory Rate 16 02/23/22 20:30 Blood Pressure 124/73 02/23/22 20:30 Pulse Oximetry 94 02/23/22 20:30 Oxygen Delivery Me thod 02/23/22 20:30 MDM - Fall Medical Decision Making Care signed out to Dr. Goyal at change of shift. See final notes for diagnosis and disposition. Patient care handed off from Dr. Nolan pending completion of ED evaluation. Laboratory studies and imaging reviewed. No leukocytosis, hemoglobin is normal. Metabolic panel overall similar to prior without acute derangement requiring intervention. No convincing evidence of urinary tract infection, given 2+ bacteria I will plan to send for culture though I do not believe that this requires treatment given no secondary signs of urinary tract infection otherwise. CT imaging reviewed without internal injury or acute bony injury. Hematoma and contusion noted. Incidental findings discussed. Overall no indication for hospitalization at this time. Patient is satisfactory for continued reassessment and local wound care back at the skilled nursing. The results of ED evaluation were discussed with the patient including prescriptions and/or symptomatic cares (if applicable) including appropriate and responsible use, followup plan, and return precautions. The patient verbalized understanding and felt safe for discharge. Lab Data 02/23/22 16:55 02/23/22 16:55 Radiology Impressions Chest X-Ray 02/23/22 16:44 IMPRESSION: No acute findings. Head CT 02/23/22 16:44 IMPRESSION: 1. No acute intracranial abnormality. 2. Right facial hematoma. 3. Right frontal scalp laceration. 4. Trace left mastoid effusion. 5. Incidental findings above. Cervical Spine CT 02/23/22 17:23 IMPRESSION: No acute fracture. Face CT 02/23/22 17:23 IMPRESSION: 1. No acute fracture. 2. Right facial soft tissue hematoma. Laboratory Results WBC 7.4 10^3/uL (4.0-10.0) 02/23/22 16:55 RBC 4.54 10^6/uL (4.1-5.3) 02/23/22 16:55 Hgb 12.2 g/dL (11.5-15.3) 02/23/22 16:55 Hct 40.3 % (37.0-47.0) 02/23/22 16:55 MCV 88.8 fl (81-99) 02/23/22 16:55 MCH 26.9 pg (28.0-34.0) L 02/23/22 16:55 MCHC 30.3 g/dL (30.0-36.0) 02/23/22 16:55 RDW 15.3 % (12.1-15.1) H 02/23/22 16:55 Plt Count 188 10^3/cmm (130-400) 02/23/22 16:55 MPV 12.8 fL (7.4-10.4) H 02/23/22 16:55 Neut % (Auto) 70.9 % 02/23/22 16:55 Lymph % (Auto) 16.5 % 02/23/22 16:55 Edwards % (Auto) 8.9 % 02/23/22 16:55 Eos % (Auto) 3.0 % 02/23/22 16:55 Baso % (Auto) 0.3 % 02/23/22 16:55 Neut # (Auto) 5.23 10^3/uL (1.8-7.7) 02/23/22 16:55 Lymph # (Auto) 1.2 10^3/uL (0.8-4.8) 02/23/22 16:55 Edwards # (Auto) 0.7 10^3/uL (0.2-0.9) 02/23/22 16:55 Eos # (Auto) 0.2 10^3/uL (0.0-0.8) 02/23/22 16:55 Baso # (Auto) 0.0 10^3/uL (0.0-0.1) 02/23/22 16:55 Nucleated RBC % (auto) 0 % 02/23/22 16:55 Nucleated RBCs # 0.0 /100WBC 02/23/22 16:55 Specimen Type Arterial 02/23/22 16:49 Sample Site Radial, right 02/23/22 16:49 ABG pH 7.42 (7.35-7.45) 02/23/22 16:49 ABG pCO2 40.7 mmHg (35-45) 02/23/22 16:49 ABG pO2 66.9 mmHg (80.0-100.0) L 02/23/22 16:49 ABG HCO3 26.5 mmol/L (22-26) H 02/23/22 16:49 ABG O2 Saturation 94.4 02/23/22 16:49 ABG Base Excess 1.8 mmol/L (-2.0-2.0) 02/23/22 16:49 Dae Test Pos 02/23/22 16:49 A-a O2 Gradient 4.2 mmHg (5-10) L 02/23/22 16:49 Hematocrit 39.0 % (37-47) 02/23/22 16:49 Hgb O2 Saturation 92.2 % (95-100) L 02/23/22 16:49 Carboxyhemoglobin 1.3 %THgb (0.4-20.1) 02/23/22 16:49 Methemoglobin 1.0 % (0.4-1.5) 02/23/22 16:49 Total Hemoglobin 12.7 g/dL (12-16) 02/23/22 16:49 Sodium 144.0 mmol/L (131-143) H 02/23/22 16:49 Potassium 4.1 mmol/L (3.5-5.0) 02/23/22 16:49 Glucose 111.0 mg/dL (70-115) 02/23/22 16:49 Ionized Calcium 1.2 mmol/L (1.1-1.4) 02/23/22 16:49 O2 Delivery Device None 02/23/22 16:49 FiO2 21.0 % 02/23/22 16:49 Clinical Educator ID Walci 02/23/22 16:49 Sodium 145 mmol/L (136-145) 02/23/22 16:55 Potassium 4.7 mmol/L (3.5-5.1) 02/23/22 16:55 Chloride 108 mmol/L (98-107) H 02/23/22 16:55 Carbon Dioxide 26 mmol/L (22-29) 02/23/22 16:55 Anion Gap 15.7 (5-19) 02/23/22 16:55 BUN 45 mg/dL (8-23) H 02/23/22 16:55 Creatinine 1.2 mg/dL (0.5-0.9) H 02/23/22 16:55 GFR Calculation Not Reportable 02/23/22 16:55 Glucose 95 mg/dL (65-115) 02/23/22 16:55 Calculated Osmolality 311 mOsm/kg (285-295) H 02/23/22 16:55 Calcium 9.3 mg/dL (8.5-10.5) 02/23/22 16:55 Total Bilirubin 0.4 mg/dL (0.15-1.2) 02/23/22 16:55 AST 21 U/L (0-32) 02/23/22 16:55 ALT 17 U/L (0-33) 02/23/22 16:55 Alkaline Phosphatase 27 U/L (35-105) L 02/23/22 16:55 Total Protein 6.8 g/dL (6.6-8.7) 02/23/22 16:55 Albumin 3.3 g/dL (3.5-5.2) L 02/23/22 16:55 Globulin 3.5 g/dL (1.3-4.6) 02/23/22 16:55 Urine Color Yellow (Yellow) 02/23/22 17:49 Urine Appearance Hazy (CLEAR) A 02/23/22 17:49 Urine pH 5 (5-7) 02/23/22 17:49 Ur Specific Huntley 1.015 (1.005-1.030) 02/23/22 17:49 Urine Protein Trace (Negative) 02/23/22 17:49 Urine Glucose (UA) Norm (Normal) 02/23/22 17:49 Urine Ketones Negative (Negative) 02/23/22 17:49 Urine Blood Neg (Negative) 02/23/22 17:49 Urine Nitrate Negative (Negative) 02/23/22 17:49 Urine Bilirubin Neg (Negative) 02/23/22 17:49 Urine Urobilinogen Neg mg/dL (Negative) 02/23/22 17:49 Ur Leukocyte Esterase Negative (Negative) 02/23/22 17:49 Urine RBC None /hpf (0-2) 02/23/22 17:49 Urine WBC None /hpf (0-5) 02/23/22 17:49 Ur Squamous Epith Cells None /hpf (0-5) 02/23/22 17:49 Amorphous Sediment Not Reportable 02/23/22 17:49 Urine Bacteria 2+ /hpf (NONE) H 02/23/22 17:49 Discharge Plan Discharge Patient Disposition: Home Clinical Impression: Fall, Multiple contusions, Traumatic hematoma of face Condition: Stable Prescriptions: No Action acetaminophen 650 mg Suppository 650 mg MT Q4H PRN (Reason: pain/fever) Zofran 4 mg Tablet 4 mg PO Q6H PRN (Reason: Nausea And Vomiting) acetaminophen 500 mg Tablet 1,000 mg PO QID PRN (Reason: Pain) Lorazepam Intensol 2 mg/mL Concentrate 1 mg PO Q4H PRN (Reason: Anxiety) Rx Instructions: for 14 days (starting 03/14/21) amino acids-protein hydrolys 15-101 gram-kcal/30 mL Liquid 1 ea PO BID@, Eliquis DVT-PE Treat 30D Start 5 mg (74 tabs) tablets,dose pack See Rx Instructions .ROUTE .COMPLEX Qty: 74 0RF Rx Instructions: orally per package directions Discharge Orders: Discharge ED (Routine); Ordered 02/23/22 Ordered By: Magdaleno Goyal Discharge Diet: Usual diet Discharge Activity: Increase activity as tolerated Patient Instructions: Acute Wound Care (ED), Contusion in Adults (ED), Hematoma (ED) Activity Restrictions/Additional Instructions: Thank you for visiting the emergency department. You were seen and evaluated for facial bruising after a fall. No acute broken bone or internal injury was identified. The most likely cause of your signs is hematoma and bruising. This should resolve. Please continue to perform appropriate wound care. Please follow-up with your primary care provider. Please have reevaluation within 1 week by primary care. Return to the emergency department for uncontrolled symptoms or anything else that you are concerned about a feel needs emergency department evaluation. Sign Out Sign Out Data: Patient Sign Out occurred on 02/23/22 at 18:20. Patient's care was discussed, and care was transferred from to Magdaleno Goyal MD. Coding Level of Care Code ED Benefits Sales Consultant for Chg Fwd Documented by User: Magdaleno Goyal MD 03/03/22 04:54 HPI - Fall General: Chief Complaint: Altered Mental Status Stated Complaint: AMS Time Seen by Provider: 02/23/22 16:43 [facility] ED PFSH: Medical History Acute hypoxemic respiratory failure Atrial fibrillation CHF exacerbation Congestive heart failure with left ventricular systolic dysfunction Delirium Dementia DNR (do not resuscitate) Pneumonia due to COVID-19 virus Social History Smoking and tobacco status: never smoked Alcohol intake: never Course Vital Signs: Vital signs: Vital Signs Temperature 97.5 F L 02/23/22 16:49 Pulse Rate 71 02/23/22 20:30 Respiratory Rate 16 02/23/22 20:30 Blood Pressure 124/73 02/23/22 20:30 Pulse Oximetry 94 02/23/22 20:30 Oxygen Delivery Me thod 02/23/22 20:30 MDM - Fall Medical Decision Making Patient care handed off from Dr. Nolan pending completion of ED evaluation. Laboratory studies and imaging reviewed. No leukocytosis, hemoglobin is normal. Metabolic panel overall similar to prior without acute derangement requiring intervention. No convincing evidence of urinary tract infection, given 2+ bacteria I will plan to send for culture though I do not believe that this requires treatment given no secondary signs of urinary tract infection otherwise. CT imaging reviewed without internal injury or acute bony injury. Hematoma and contusion noted. Incidental findings discussed. Overall no indication for hospitalization at this time. Patient is satisfactory for continued reassessment and local wound care back at the skilled nursing. The results of ED evaluation were discussed with the patient including prescriptions and/or symptomatic cares (if applicable) including appropriate and responsible use, followup plan, and return precautions. The patient verbalized understanding and felt safe for discharge. Lab Data 02/23/22 16:55 02/23/22 16:55 Radiology Impressions Chest X-Ray 02/23/22 16:44 IMPRESSION: No acute findings. Head CT 02/23/22 16:44 IMPRESSION: 1. No acute intracranial abnormality. 2. Right facial hematoma. 3. Right frontal scalp laceration. 4. Trace left mastoid effusion. 5. Incidental findings above. Cervical Spine CT 02/23/22 17:23 IMPRESSION: No acute fracture. Face CT 02/23/22 17:23 IMPRESSION: 1. No acute fracture. 2. Right facial soft tissue hematoma. Laboratory Results WBC 7.4 10^3/uL (4.0-10.0) 02/23/22 16:55 RBC 4.54 10^6/uL (4.1-5.3) 02/23/22 16:55 Hgb 12.2 g/dL (11.5-15.3) 02/23/22 16:55 Hct 40.3 % (37.0-47.0) 02/23/22 16:55 MCV 88.8 fl (81-99) 02/23/22 16:55 MCH 26.9 pg (28.0-34.0) L 02/23/22 16:55 MCHC 30.3 g/dL (30.0-36.0) 02/23/22 16:55 RDW 15.3 % (12.1-15.1) H 02/23/22 16:55 Plt Count 188 10^3/cmm (130-400) 02/23/22 16:55 MPV 12.8 fL (7.4-10.4) H 02/23/22 16:55 Neut % (Auto) 70.9 % 02/23/22 16:55 Lymph % (Auto) 16.5 % 02/23/22 16:55 Edwards % (Auto) 8.9 % 02/23/22 16:55 Eos % (Auto) 3.0 % 02/23/22 16:55 Baso % (Auto) 0.3 % 02/23/22 16:55 Neut # (Auto) 5.23 10^3/uL (1.8-7.7) 02/23/22 16:55 Lymph # (Auto) 1.2 10^3/uL (0.8-4.8) 02/23/22 16:55 Edwards # (Auto) 0.7 10^3/uL (0.2-0.9) 02/23/22 16:55 Eos # (Auto) 0.2 10^3/uL (0.0-0.8) 02/23/22 16:55 Baso # (Auto) 0.0 10^3/uL (0.0-0.1) 02/23/22 16:55 Nucleated RBC % (auto) 0 % 02/23/22 16:55 Nucleated RBCs # 0.0 /100WBC 02/23/22 16:55 Specimen Type Arterial 02/23/22 16:49 Sample Site Radial, right 02/23/22 16:49 ABG pH 7.42 (7.35-7.45) 02/23/22 16:49 ABG pCO2 40.7 mmHg (35-45) 02/23/22 16:49 ABG pO2 66.9 mmHg (80.0-100.0) L 02/23/22 16:49 ABG HCO3 26.5 mmol/L (22-26) H 02/23/22 16:49 ABG O2 Saturation 94.4 02/23/22 16:49 ABG Base Excess 1.8 mmol/L (-2.0-2.0) 02/23/22 16:49 Dae Test Pos 02/23/22 16:49 A-a O2 Gradient 4.2 mmHg (5-10) L 02/23/22 16:49 Hematocrit 39.0 % (37-47) 02/23/22 16:49 Hgb O2 Saturation 92.2 % (95-100) L 02/23/22 16:49 Carboxyhemoglobin 1.3 %THgb (0.4-20.1) 02/23/22 16:49 Methemoglobin 1.0 % (0.4-1.5) 02/23/22 16:49 Total Hemoglobin 12.7 g/dL (12-16) 02/23/22 16:49 Sodium 144.0 mmol/L (131-143) H 02/23/22 16:49 Potassium 4.1 mmol/L (3.5-5.0) 02/23/22 16:49 Glucose 111.0 mg/dL (70-115) 02/23/22 16:49 Ionized Calcium 1.2 mmol/L (1.1-1.4) 02/23/22 16:49 O2 Delivery Device None 02/23/22 16:49 FiO2 21.0 % 02/23/22 16:49 Clinical Educator ID Walci 02/23/22 16:49 Sodium 145 mmol/L (136-145) 02/23/22 16:55 Potassium 4.7 mmol/L (3.5-5.1) 02/23/22 16:55 Chloride 108 mmol/L (98-107) H 02/23/22 16:55 Carbon Dioxide 26 mmol/L (22-29) 02/23/22 16:55 Anion Gap 15.7 (5-19) 02/23/22 16:55 BUN 45 mg/dL (8-23) H 02/23/22 16:55 Creatinine 1.2 mg/dL (0.5-0.9) H 02/23/22 16:55 GFR Calculation Not Reportable 02/23/22 16:55 Glucose 95 mg/dL (65-115) 02/23/22 16:55 Calculated Osmolality 311 mOsm/kg (285-295) H 02/23/22 16:55 Calcium 9.3 mg/dL (8.5-10.5) 02/23/22 16:55 Total Bilirubin 0.4 mg/dL (0.15-1.2) 02/23/22 16:55 AST 21 U/L (0-32) 02/23/22 16:55 ALT 17 U/L (0-33) 02/23/22 16:55 Alkaline Phosphatase 27 U/L (35-105) L 02/23/22 16:55 Total Protein 6.8 g/dL (6.6-8.7) 02/23/22 16:55 Albumin 3.3 g/dL (3.5-5.2) L 02/23/22 16:55 Globulin 3.5 g/dL (1.3-4.6) 02/23/22 16:55 Urine Color Yellow (Yellow) 02/23/22 17:49 Urine Appearance Hazy (CLEAR) A 02/23/22 17:49 Urine pH 5 (5-7) 02/23/22 17:49 Ur Specific Huntley 1.015 (1.005-1.030) 02/23/22 17:49 Urine Protein Trace (Negative) 02/23/22 17:49 Urine Glucose (UA) Norm (Normal) 02/23/22 17:49 Urine Ketones Negative (Negative) 02/23/22 17:49 Urine Blood Neg (Negative) 02/23/22 17:49 Urine Nitrate Negative (Negative) 02/23/22 17:49 Urine Bilirubin Neg (Negative) 02/23/22 17:49 Urine Urobilinogen Neg mg/dL (Negative) 02/23/22 17:49 Ur Leukocyte Esterase Negative (Negative) 02/23/22 17:49 Urine RBC None /hpf (0-2) 02/23/22 17:49 Urine WBC None /hpf (0-5) 02/23/22 17:49 Ur Squamous Epith Cells None /hpf (0-5) 02/23/22 17:49 Amorphous Sediment Not Reportable 02/23/22 17:49 Urine Bacteria 2+ /hpf (NONE) H 02/23/22 17:49 Discharge Plan Discharge Patient Disposition: Home Clinical Impression: Fall, Multiple contusions, Traumatic hematoma of face Condition: Stable Prescriptions: No Action acetaminophen 650 mg Suppository 650 mg MT Q4H PRN (Reason: pain/fever) Zofran 4 mg Tablet 4 mg PO Q6H PRN (Reason: Nausea And Vomiting) acetaminophen 500 mg Tablet 1,000 mg PO QID PRN (Reason: Pain) Lorazepam Intensol 2 mg/mL Concentrate 1 mg PO Q4H PRN (Reason: Anxiety) Rx Instructions: for 14 days (starting 03/14/21) amino acids-protein hydrolys 15-101 gram-kcal/30 mL Liquid 1 ea PO BID@08,20 Eliquis DVT-PE Treat 30D Start 5 mg (74 tabs) tablets,dose pack See Rx Instructions .ROUTE .COMPLEX Qty: 74 0RF Rx Instructions: orally per package directions Discharge Orders: Discharge ED (Routine); Ordered 02/23/22 Ordered By: Magdaleno Goyal Discharge Diet: Usual diet Discharge Activity: Increase activity as tolerated Patient Instructions: Acute Wound Care (ED), Contusion in Adults (ED), Hematoma (ED) Activity Restrictions/Additional Instructions: Thank you for visiting the emergency department. You were seen and evaluated for facial bruising after a fall. No acute broken bone or internal injury was identified. The most likely cause of your signs is hematoma and bruising. This should resolve. Please continue to perform appropriate wound care. Please follow-up with your primary care provider. Please have reevaluation within 1 week by primary care. Return to the emergency department for uncontrolled symptoms or anything else that you are concerned about a feel needs emergency department evaluation. Sign Out Sign Out Data: Patient Sign Out occurred on 02/23/22 at 18:20. Patient's care was discussed, and care was transferred from to Magdaleno Goyal MD. Coding Level of Care Code ED Benefits Sales Consultant for Angelica Verdin
--- NOTE | 2022-02-23 17:41 | ECG_ITS ---
[facility] Test Date: 2022-02-23 Pat Name: Delilah Adams Department: Room: Gender: Female Measurement Department Chief Clerk: : 1940 Requested By: Alfonzo Villanueva Order Number: [id number] Ibeth MD: Marquise Horan M.D. Measurements Intervals Hood Rate: 59 P: 248 WI: 205 QRS: -48 QRSD: 148 T: 6 QT: 514 QTc: 513 Interpretive Statements ELECTRONIC ATRIAL PACEMAKER INTRAVENTRICULAR CONDUCTION DELAY [130+ ms QRS DURATION] LATERAL MYOCARDIAL INFARCTION , OF INDETERMINATE AGE [40+ ms Q WAVE AND/OR ST/T ABNORMALITY IN I/aVL/V5/V6] Compared to ECG 02/08/2022 23:28:42 Sinus rhythm no longer present Myocardial infarct finding still present Electronically Signed On 02-24-2022 11:58:38 RENOVATOR MACHINE OPERATOR by Marquise Horan M.D. [id number]
[2022-02-23 17:56] LABS: Basophils % 0.3 %; Eosinophils # 0.2 10^3/uL (0.0-0.8); Hematocrit 40.3 % (37.0-47.0); Hemoglobin 12.2 g/dL (11.5-15.3); Lymphocytes # 1.2 10^3/uL (0.8-4.8); Lymphocytes % 16.5 %; Mean Corpuscular HGB Conc 30.3 g/dL (30.0-36.0); Mean Corpuscular Hemoglobin 26.9 pg (28.0-34.0); Mean Corpuscular Volume 88.8 fl (81-99); Mean Platelet Volume 12.8 fL (7.4-10.4); Monocytes # 0.7 10^3/uL (0.2-0.9); Monocytes % 8.9 %; Neutrophils # 5.23 10^3/uL (1.8-7.7); Neutrophils % 70.9 %; Nucleated Red Blood Cells % 0 %; Platelet Count 188 10^3/cmm (130-400); Red Blood Count 4.54 10^6/uL (4.1-5.3); Red Cell Distribution Width 15.3 % (12.1-15.1); White Blood Count 7.4 10^3/uL (4.0-10.0)
[2022-02-23 18:02] LABS: Add Urine Microscopic? YES; Bilirubin Urine Neg (Negative); Blood Urine Neg (Negative); Glucose Urine UA Norm (Normal); Ketones Urine Negative (Negative); Leukocyte Esterase Urine Negative (Negative); Nitrate Urine Negative (Negative); Protein Urine Trace (Negative); Specific Gravity, Urine 1.015 (1.005-1.030); Urine Appearance Hazy (CLEAR); Urine Color Yellow (Yellow); Urobilinogen Urine Neg (Negative); pH Urine 5 (5-7)
[2022-02-23 18:04] LABS: Alanine Aminotransferase 17 U/L (0-33); Albumin Level 3.3 g/dL (3.5-5.2); Alkaline Phosphatase 27 U/L (35-105); Anion Gap 15.7 (5-19); Aspartate Amino Transferase 21 U/L (0-32); Blood Urea Nitrogen 45 mg/dL (8-23); Calcium 9.3 mg/dL (8.5-10.5); Carbon Dioxide 26 mmol/L (22-29); Chloride 108 mmol/L (98-107); Globulin 3.5 g/dL (1.3-4.6); Glucose 95 mg/dL (65-115); Osmolality Calculated 311 mOsm/kg (285-295); Potassium 4.7 mmol/L (3.5-5.1); Sodium 145 mmol/L (136-145); Total Bilirubin 0.4 mg/dL (0.15-1.2); Total Protein 6.8 g/dL (6.6-8.7)
[2022-02-23 18:34] VITALS: BP 150/76; PULSE 60; RESP 16; O2SAT 94
[2022-02-23 18:52] LABS: Add Urine Culture? No; Bacteria Urine 2+ /hpf
--- NOTE | 2022-02-23 19:54 | PC.NURSE ---
Called report to nurse at [facility] special unit.
[2022-02-23 20:30] VITALS: BP 124/73; PULSE 71; RESP 16; O2SAT 94
== END 2022-02-23 20:34 | disposition home or self-care (01) ==
PROVIDERS: Family Medicine; Emergency Provider Emergency Medicine
DX: S00.83XA Contusion of other part of head, initial encounter (principal); S01.01XA Laceration without foreign body of scalp, initial encounter; Z79.01 Long term (current) use of anticoagulants; I50.9 Heart failure, unspecified; F03.90 Unspecified dementia, unspecified severity, without behavioral disturbance, psychotic disturbance, mood disturbance, and anxiety; W19.XXXA Unspecified fall, initial encounter
CPT/HCPCS: 36600; 70450; 70486; 71045; 72125; 80051; 80053; 81001; 82330; 82805; 85025; 93005; 99285

== ENCOUNTER 2022-04-11 20:01 | Emergency (ER) | payer MEDICARE, SELFPAY ==
[2022-04-11] VITALS (21 sets, daily range): BP systolic 146–157; BP diastolic 58–70; PULSE 63–90; RESP 14–18; TEMP 36.2; O2SAT 94–98; BMI 40.3
--- NOTE | 2022-04-11 20:22 | CTR_ITS ---
PROCEDURE INFORMATION: Exam: CT Cervical Spine Without Contrast Exam date and time: 04/11/2022 9:01 PM Age: 81 years old Clinical indication: Injury or trauma; Fall; Blunt trauma; Additional info: Fall head injury TECHNIQUE: Imaging protocol: Computed tomography of the cervical spine without contrast. Radiation optimization: All CT scans at this facility use at least one of these dose optimization techniques: automated exposure control; mA and/or kV adjustment per patient size (includes targeted exams where dose is matched to clinical indication); or iterative reconstruction. REPORTING DATA: Count of CT and Cardiac NM exams in prior 12 months: This patient has received 8 known CTs and 0 known cardiac nuclear medicine studies in the 12 months prior to the current study. COMPARISON: CT cervical spin wo con* [id number] 02/23/2022 6:16 PM RADIATION DOSE METRICS: Total DLP (mGy-cm): 524.9 FINDINGS: Bones/joints: Near anatomic alignment. No acute fracture. Multilevel degenerative changes are present. No severe spinal canal stenosis. Lungs: Patchy ground-glass densities are seen in the lung apices. Soft tissues: Unremarkable. CT/CT cervical spin wo con* [id number] IMPRESSION: 1. No acute osseous injury. 2. Patchy ground-glass densities are seen in the lung apices. Correlate for possible pulmonary vascular congestion or pneumonia.
--- NOTE | 2022-04-11 20:22 | CTR_ITS ---
PROCEDURE INFORMATION: Exam: CT Head Without Contrast Exam date and time: 04/11/2022 9:01 PM Age: 81 years old Clinical indication: Injury or trauma; Fall; Blunt trauma (contusions or hematomas); Consciousness not specified; Additional info: Fall head injury TECHNIQUE: Imaging protocol: Computed tomography of the head without contrast. Radiation optimization: All CT scans at this facility use at least one of these dose optimization techniques: automated exposure control; mA and/or kV adjustment per patient size (includes targeted exams where dose is matched to clinical indication); or iterative reconstruction. REPORTING DATA: Count of CT and Cardiac NM exams in prior 12 months: This patient has received 7 known CTs and 0 known cardiac nuclear medicine studies in the 12 months prior to the current study. COMPARISON: CT head wo con* [id number] 02/23/2022 6:09 PM RADIATION DOSE METRICS: Total DLP (mGy-cm): 1385.4 FINDINGS: Brain: No acute infarct. No hemorrhage. Involutional changes of the brain, commensurate with age. No mass effect. Cerebral ventricles: No ventriculomegaly. Paranasal sinuses: Visualized sinuses are unremarkable. No fluid levels. Mastoid air cells: Visualized mastoid air cells are well aerated. Bones/joints: Unremarkable. No acute fracture. Soft tissues: Left frontal scalp soft tissue hematoma/laceration injury. CT/CT head wo con* [id number] IMPRESSION: 1. No acute intracranial abnormality. 2. Left frontal scalp soft tissue hematoma/laceration injury.
--- NOTE | 2022-04-11 20:23 | ECG_ITS ---
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 Measurements Intervals [place] Rate: 62 P: -68 NE: 197 QRS: -51 QRSD: 147 T: 17 QT: 458 QTc: 467 Interpretive Statements ELECTRONIC ATRIAL PACEMAKER RIGHT BUNDLE BRANCH BLOCK [120+ ms QRS DURATION, UPRIGHT V1, 40+ ms S IN I/aVL/V4/V5/V6] LEFT ANTERIOR FASCICULAR BLOCK [QRS AXIS <= -45, QR IN I, RS IN II] Compared to ECG 02/23/2022 17:13:16 Right bundle-branch block now present Left anterior fascicular block now present Intraventricular conduction delay no longer present Myocardial infarct finding no longer present Electronically Signed On 04-12-2022 15:17:05 ASSEMBLER FINAL by Marquise Horan M.D. [email or web address]
[2022-04-11 21:05] LABS: Basophils % 0.5 %; Eosinophils # 0.3 10^3/uL (0.0-0.8); Eosinophils % 4.2 %; Hematocrit 40.9 % (37.0-47.0); Hemoglobin 12.2 g/dL (11.5-15.3); Lymphocytes # 1.1 10^3/uL (0.8-4.8); Lymphocytes % 14.7 %; Mean Corpuscular HGB Conc 29.8 g/dL (30.0-36.0); Mean Corpuscular Hemoglobin 26.5 pg (28.0-34.0); Mean Corpuscular Volume 88.7 fl (81-99); Mean Platelet Volume 12.7 fL (7.4-10.4); Monocytes # 0.6 10^3/uL (0.2-0.9); Monocytes % 8.3 %; Neutrophils # 5.45 10^3/uL (1.8-7.7); Nucleated Red Blood Cells % 0 %; Platelet Count 163 10^3/cmm (130-400); Red Blood Count 4.61 10^6/uL (4.1-5.3); Red Cell Distribution Width 14.6 % (12.1-15.1); White Blood Count 7.6 10^3/uL (4.0-10.0)
[2022-04-11 21:21] LABS: INR 1.47 (0.8-1.2)
[2022-04-11 21:22] LABS: Partial Thromboplastin Time 30.4 SECONDS (23.9-36.7)
[2022-04-11 21:28] LABS: Alanine Aminotransferase 25 U/L (0-33); Albumin Level 3.6 g/dL (3.5-5.2); Alkaline Phosphatase 35 U/L (35-105); Anion Gap 14.4 (5-19); Aspartate Amino Transferase 32 U/L (0-32); Blood Urea Nitrogen 41 mg/dL (8-23); Calcium 9.6 mg/dL (8.5-10.5); Carbon Dioxide 25 mmol/L (22-29); Chloride 107 mmol/L (98-107); Creatine Phosphokinase 93 U/L (26-192); Globulin 3.1 g/dL (1.3-4.6); Glucose 142 mg/dL (65-115); Osmolality Calculated 307 mOsm/kg (285-295); Potassium 4.4 mmol/L (3.5-5.1); Sodium 142 mmol/L (136-145); Total Bilirubin 0.2 mg/dL (0.15-1.2); Total Protein 6.7 g/dL (6.6-8.7)
--- NOTE | 2022-04-11 22:08 | ED_ITS ---
HPI - Head Injury General: Chief complaint: Head Injury Stated complaint: HEAD LAC POST FALL Time Seen by Provider: 04/11/22 20:09 Source: patient History of Present Illness: 81-year-old female residential patient presents after a fall. She was found in her room down. She has a history of dementia, and does not remember the event. She has a head injury, and is on anticoagulants. She has a laceration to her left forehead. MD Complaint: head injury Onset (ago): unknown Mechanism of Injury: unsure Place: other ([facility]) Loss of Consciousness: unsure Location of injury: frontal Severity: mild Quality: other Radiation: other Other Injuries: none Associated symptoms: Reports other Review of Systems General: Reports: ROS unobtainable due to mental status PFSH ED PFSH: Medical History Acute hypoxemic respiratory failure Atrial fibrillation CHF exacerbation Congestive heart failure with left ventricular systolic dysfunction Delirium Dementia DNR (do not resuscitate) Pneumonia due to COVID-19 virus Social History Smoking and tobacco status: never smoked Alcohol intake: never Physical Exam Const: COMMON NORMALS: no acute distress GENERAL APPEARANCE: cooperative and frail appearing HENMT: COMMON NORMALS: Normal external nose present HEAD & SCALP: contusion (Left frontal) and laceration (Left frontal) FACE & SINUS: normal facial exam NOSE: Normal external nose present Eye: COMMON NORMALS: EOMs intact bilaterally Neck/C-Spine: GENERAL: Yes trachea midline CERVICAL SPINE: No Cervical spine tenderness Chest: CHEST: Yes Symmetrical chest wall rise Resp: COMMON NORMALS: normal respiratory effort, No use of accessory muscles and clear to auscultation bilaterally AUSCULTATION: clear to auscultation bi laterally Cardio: COMMON NORMALS: regular rate and regular rhythm RATE: regular rate RHYTHM: regular rhythm GI: COMMON NORMALS: Normal to inspection, nondistended, normoactive bowel sounds present and Soft to palpation PALPATION: Yes Soft to palpation Extremity: GENERAL: Yes edema (2-3+) Neuro: PENG COMA SCALE: document GCS findings [place] coma scale eye opening: Spontaneous [place] coma scale verbal response: Confused Peng coma scale motor response: Obey commands Peng coma scale total score: 14 Psych: COMMON NORMALS: cooperative Procedures Laceration Laceration 1: Site: face Side (If applicable): left Size (cm): 3 Description: linear Depth: simple, single layer Pre-repair: wound explored and irrigated extensively Skin layer closed with: other (Dermabond) Course Vital Signs: Vital signs: Vital Signs Temperature 97.1 F L 04/11/22 20:08 Pulse Rate 90 04/11/22 23:45 Respiratory Rate 18 04/11/22 23:45 Blood Pressure 153/60 04/11/22 22:30 Pulse Oximetry 96 04/11/22 23:45 Oxygen Delivery Me thod 04/11/22 20:08 MDM - Head Injury Medcial Decision Making CT reveals no head injury. No fracture on cervical spine CT. White blood cell count is normal. Hemoglobin is normal. She did have some vascular congestion present on her lung apices on cervical spine CT. Her BUN is elevated at 41, creatinine baseline at 1.2. BUN elevation is chronic in this patient. She does have a nitrate positive urinalysis but only trace leukocyte Estrace. Laceration is repaired with Dermabond. She is otherwise stable. She will be allowed back to the residential to return for any worsening symptoms. Lab Data 04/11/22 20:47 04/11/22 20:47 Radiology Impressions Cervical Spine CT 04/11/22 20:22 IMPRESSION: 1. No acute osseous injury. 2. Patchy ground-glass densities are seen in the lung apices. Correlate for possible pulmonary vascular congestion or pneumonia. Head CT 04/11/22 20:22 IMPRESSION: 1. No acute intracranial abnormality. 2. Left frontal scalp soft tissue hematoma/laceration injury. Laboratory Results WBC 7.6 10^3/uL (4.0-10.0) 04/11/22 20:47 RBC 4.61 10^6/uL (4.1-5.3) 04/11/22 20:47 Hgb 12.2 g/dL (11.5-15.3) 04/11/22 20:47 Hct 40.9 % (37.0-47.0) 04/11/22 20:47 MCV 88.7 fl (81-99) 04/11/22 20:47 MCH 26.5 pg (28.0-34.0) L 04/11/22 20:47 MCHC 29.8 g/dL (30.0-36.0) L 04/11/22 20:47 RDW 14.6 % (12.1-15.1) 04/11/22 20:47 Plt Count 163 10^3/cmm (130-400) 04/11/22 20:47 MPV 12.7 fL (7.4-10.4) H 04/11/22 20:47 Neut % (Auto) 72.0 % 04/11/22 20:47 Lymph % (Auto) 14.7 % 04/11/22 20:47 [place] % (Auto) 8.3 % 04/11/22 20:47 Eos % (Auto) 4.2 % 04/11/22 20:47 Baso % (Auto) 0.5 % 04/11/22 20:47 Neut # (Auto) 5.45 10^3/uL (1.8-7.7) 04/11/22 20:47 Lymph # (Auto) 1.1 10^3/uL (0.8-4.8) 04/11/22 20:47 [place] # (Auto) 0.6 10^3/uL (0.2-0.9) 04/11/22 20:47 Eos # (Auto) 0.3 10^3/uL (0.0-0.8) 04/11/22 20:47 Baso # (Auto) 0.0 10^3/uL (0.0-0.1) 04/11/22 20:47 Nucleated RBC % (auto) 0 % 04/11/22:47 Nucleated RBCs # 0.0 /100WBC 04/11/22 20:47 PT 18.40 SECONDS (12.1-14.9) H 04/11/22 20:47 INR 1.47 (0.8-1.2) H 04/11/22 20:47 APTT 30.4 SECONDS (23.9-36.7) 04/11/22 20:47 Sodium 142 mmol/L (136-145) 04/11/22 20:47 Potassium 4.4 mmol/L (3.5-5.1) 04/11/22 20:47 Chloride 107 mmol/L (98-107) 04/11/22 20:47 Carbon Dioxide 25 mmol/L (22-29) 04/11/22 20:47 Anion Gap 14.4 (5-19) 04/11/22 20:47 BUN 41 mg/dL (8-23) H 04/11/22 20:47 Creatinine 1.2 mg/dL (0.5-0.9) H 04/11/22 20:47 GFR Calculation Not Reportable 04/11/22 20:47 Glucose 142 mg/dL (65-115) H 04/11/22 20:47 Calculated Osmolality 307 mOsm/kg (285-295) H 04/11/22 20:47 Calcium 9.6 mg/dL (8.5-10.5) 04/11/22 20:47 Total Bilirubin 0.2 mg/dL (0.15-1.2) 04/11/22 20:47 AST 32 U/L (0-32) 04/11/22 20:47 ALT 25 U/L (0-33) 04/11/22 20:47 Alkaline Phosphatase 35 U/L (35-105) 04/11/22 20:47 Creatine Kinase 93 U/L (26-192) 04/11/22 20:47 Total Protein 6.7 g/dL (6.6-8.7) 04/11/22 20:47 Albumin 3.6 g/dL (3.5-5.2) 04/11/22 20:47 Globulin 3.1 g/dL (1.3-4.6) 04/11/22 20:47 Urine Color Yellow (Yellow) 04/11/22 22:00 Urine Appearance Hazy (CLEAR) A 04/11/22 22:00 Urine pH 8 (5-7) H 04/11/22 22:00 Ur Specific [place] 1.010 (1.005-1.030) 04/11/22 22:00 Urine Protein Neg (Negative) 04/11/22 22:00 Urine Glucose (UA) Norm (Normal) 04/11/22 22:00 Urine Ketones Negative (Negative) 04/11/22 22:00 Urine Blood 2+ (Negative) H 04/11/22 22:00 Urine Nitrate Positive (Negative) H 04/11/22 22:00 Urine Bilirubin Neg (Negative) 04/11/22 22:00 Prot Sulfosalicylic Acd Negative (Negative) 04/11/22 22:00 Urine Urobilinogen Neg mg/dL (Negative) 04/11/22 22:00 Ur Leukocyte Esterase Trace (Negative) H 04/11/22 22:00 Urine RBC 15-25 /hpf (0-2) H 04/11/22 22:00 Urine WBC 15-25 /hpf (0-5) H 04/11/22 22:00 Ur Squamous Epith Cells 0-4 /hpf (0-5) H 04/11/22 22:00 Amorphous Sediment 2+ /hpf 04/11/22 22:00 Urine Bacteria 2+ /hpf (NONE) H 04/11/22 22:00 Urine Mucus 1+ /hpf 04/11/22 22:00 Discharge Plan Discharge Patient Disposition: Home Clinical Impression: Contusion of face, scalp and neck, Facial laceration Condition: Stable Prescriptions: No Action acetaminophen 650 mg Suppository 650 mg PA Q4H PRN (Reason: pain/fever) Zofran 4 mg Tablet 4 mg PO Q6H PRN (Reason: Nausea And Vomiting) acetaminophen 500 mg Tablet 1,000 mg PO QID PRN (Reason: Pain) Lorazepam Intensol 2 mg/mL Concentrate 1 mg PO Q4H PRN (Reason: Anxiety) Rx Instructions: for 14 days (starting 03/14/21) amino acids-protein hydrolys 15-101 gram-kcal/30 mL Liquid 1 ea PO BID@08,20 Eliquis DVT-PE Treat 30D Start 5 mg (74 tabs) tablets,dose pack See Rx Instructions .ROUTE .COMPLEX Qty: 74 0RF Rx Instructions: orally per package directions Discharge Orders: Discharge ED (Routine); Ordered 04/11/22 Ordered By: Aman Hernandez Patient Instructions: Scalp Contusion in Adults (ED), Facial Laceration (ED) Activity Restrictions/Additional Instructions: Return for worsening mental status, fever, worsening weakness, any other concerning symptoms. Keep area dry for 24 hours, then may wash with soap and running water. Follow-up with your doctor this coming week. Coding Level of Care Code ED Soap Drier Operator for Angelica Verdin
[2022-04-11 22:22] LABS: Urine Color Yellow (Yellow)
[2022-04-11 22:23] LABS: Add Urine Microscopic? YES; Bilirubin Urine Neg (Negative); Blood Urine 2+ (Negative); Glucose Urine UA Norm (Normal); Ketones Urine Negative (Negative); Leukocyte Esterase Urine Trace (Negative); Nitrate Urine Positive (Negative); Protein Urine Neg (Negative); Sulfosalicylic Acid Urine Negative (Negative); Urine Appearance Hazy (CLEAR); Urobilinogen Urine Neg (Negative); pH Urine 8 (5-7)
[2022-04-11 22:25] LABS: Add Urine Culture? Yes; Amorphous Sediment Urine 2+ /hpf; Bacteria Urine 2+ /hpf; Mucus Urine 1+ /hpf; RBC Urine 15-25 /hpf (0-2); Squamous Epithelial Cell Urine 0-4 /hpf (0-5); WBC Urine 15-25 /hpf (0-5)
--- NOTE | 2022-04-11 23:18 | PC.NURSE ---
Pt resting in bed. Pt had bowel movement and was cleaned up by this RN and tech. Pt tolerated well and placed on clean chux pad. Pt is pleasantly confused at baseline. Report given to Maria M at [facility].
--- NOTE | 2022-04-11 23:45 | PC.NURSE ---
attempted to call report to [facility] - no answer, left a message on machine.
== END 2022-04-11 23:48 | disposition home or self-care (01) ==
PROVIDERS: Emergency Provider Emergency Medicine
DX: S00.83XA Contusion of other part of head, initial encounter (principal); S00.03XA Contusion of scalp, initial encounter; S10.93XA Contusion of unspecified part of neck, initial encounter; S01.81XA Laceration without foreign body of other part of head, initial encounter; W19.XXXA Unspecified fall, initial encounter; Y92.129 Unspecified place in nursing home as the place of occurrence of the external cause; I50.9 Heart failure, unspecified; F03.90 Unspecified dementia, unspecified severity, without behavioral disturbance, psychotic disturbance, mood disturbance, and anxiety
CPT/HCPCS: 12013; 36415; 70450; 72125; 80053; 81001; 82550; 85025; 85610; 85730; 87077; 87086; 87186; 93005; 99285

== ENCOUNTER 2022-04-20 17:56 | Emergency (ER) | payer MEDICARE, SELFPAY ==
[2022-04-20] VITALS (11 sets, daily range): BP systolic 115–191; BP diastolic 68–99; PULSE 60; RESP 16; TEMP 37.2; O2SAT 93–95
--- NOTE | 2022-04-20 | CTR_ITS ---
PROCEDURE INFORMATION: Exam: CT Maxillofacial Without Contrast Exam date and time: 04/20/2022 7:18 PM Age: 81 years old Clinical indication: Injury or trauma; Fall; Blunt trauma (contusions or hematomas); Head/scalp; Without loss of consciousness; Injury date: 04/20/2022 TECHNIQUE: Imaging protocol: Computed tomography of the face without contrast. Radiation optimization: All CT scans at this facility use at least one of these dose optimization techniques: automated exposure control; mA and/or kV adjustment per patient size (includes targeted exams where dose is matched to clinical indication); or iterative reconstruction. REPORTING DATA: Count of CT and Cardiac NM exams in prior 12 months: This patient has received 11 known CTs and 0 known cardiac nuclear medicine studies in the 12 months prior to the current study. COMPARISON: CT facial bones wo con* [id number] 02/23/2022 6:12 PM RADIATION DOSE METRICS: Total DLP (mGy-cm): 612.48 FINDINGS: Orbital cavities: Bilateral lens replacements are unchanged. Bones/joints: No acute fracture. Paranasal sinuses: Normal. No air-fluid levels. Soft tissues: Inferior frontal scalp soft tissue hematoma is are partially seen. Small soft tissue hematoma is also seen in the lateral right periorbital region which is smaller than comparison 02/23/2022 exam. Dental: Patient is edentulous. CT/CT facial bones wo con* [id number] IMPRESSION: 1. No acute facial fracture. 2. Right lateral periorbital soft tissue hematoma smaller than 02/23/2022 exam.
--- NOTE | 2022-04-20 18:34 | W.ED.FALL ---
HPI - Fall General: Chief Complaint: Fall Stated Complaint: FALL Time Seen by Provider: 04/20/22 18:16 Limitations: altered mental status History of Present Illness: Ms. Adams is a 81-year-old lady with, per chart review, A-fib on Eliquis, CHF, kidney disease presenting to the emergency department for fall with head injury. Patient does not provide significant meaningful history as to what the exact circumstances. Review of Systems General: Reports: ROS unobtainable due to mental status PFSH ED PFSH: Medical History Acute hypoxemic respiratory failure Atrial fibrillation CHF exacerbation Congestive heart failure with left ventricular systolic dysfunction Delirium Dementia DNR (do not resuscitate) Pneumonia due to COVID-19 virus Social History Smoking and tobacco status: never smoked Alcohol intake: never Physical Exam Const: COMMON NORMALS: alert GENERAL APPEARANCE: cooperative and well developed HENMT: COMMON NORMALS: normocephalic HEAD & SCALP: normocephalic THROAT: posterior oropharynx normal OTHER: Right-sided forehead contusion and laceration, periorbital ecchymosis without evidence of raccoon eyes. No mendez signs.. No hemotympanum. No otorrhea or rhinorrhea. Jaw alignment normal. Dentition baseline. No obvious bony step-offs. No septal hematoma. No evidence of ocular entrapment. Eye: COMMON NORMALS: conjunctivae normal CONJUNCTIVA: Yes conjunctivae normal SCLERA: sclerae normal Neck/C-Spine: COMMON NORMALS: supple GENERAL: Yes trachea midline Chest: OTHER: Sternal tenderness to palpation without obvious deformity or crepitus Resp: COMMON NORMALS: clear to auscultation bilaterally EFFORT & INSPECTION: Yes able to speak in complete sentences AUSCULTATION: clear to auscultation bilaterally Cardio: COMMON NORMALS: regular rate and regular rhythm RATE: regular rate RHYTHM: regular rhythm GI: COMMON NORMALS: Soft to palpation PALPATION: Yes Soft to palpation and Yes Tenderness to palpation present (GI) Extremity: GENERAL: Yes normal exam except as noted and No edema Neuro: COMMON NORMALS: moves all extremities SENSORIUM/ORIENTATION: Yes alert and Yes Orientation impaired Psych: COMMON NORMALS: mental status grossly normal and Normal thought process present THOUGHT PROCESS: Normal thought process present Procedures Laceration Laceration 1: Site: face Side (If applicable): right Size (cm): 4 Description: stellate Depth: simple, single layer Local Anesthetic: lidocaine 1% and with epi Amount of anesthesia used (mL): 3 Pre-repair: wound explored, irrigated extensively and deep structures intact Skin layer closed with: nylon Size (cm): 5-0 Number of sutures: 5 Technique: simple, interrupted Course Vital Signs: Vital signs: Vital Signs Temperature 99.0 F 04/20/22 18:03 Pulse Rate 60 04/20/22 20:06 Respiratory Rate 16 04/20/22 18:03 Blood Pressure 191/99 04/20/22 21:30 Pulse Oximetry 95 04/20/22 21:00 Oxygen Delivery Me thod 04/20/22 18:03 Oxygen Flow Rate 3 04/20/22 18:03 MDM - Fall Medical Decision Making 81-year-old lady with history of dementia presenting due to fall with unclear circumstances and head trauma with laceration. Bleeding controlled on exam. Patient has nonfocal neurologic exam though does not provide any meaningful clinical history. Head to toe exam performed. EKG demonstrates atrial paced rhythm with interventricular conduction delay, left axis deviation, no STEMI. Labs with no significant hematologic abnormality. Patient appears to have near baseline CKD without electrolyte derangement. CT demonstrates no acute internal cranial injury. Cervical spine without acute fracture. Facial bone CT without bony injury. No acute traumatic chest abdomen pelvis or injury. Incidental findings present. Laceration repair as noted with hemostasis. Tdap updated. Most likely cause of fall is unclear. Patient is satisfactory for return to [facility]. Medical Records I reviewed the patient's medical records. Lab Data I reviewed the patient's lab results. 04/20/22 18:42 04/20/22 18:[address] 04/20/22 00:00 IMPRESSION: 1. No acute facial fracture. 2. Right lateral periorbital soft tissue hematoma smaller than 02/23/[address] 04/20/22 18:36 IMPRESSION: No acute osseous injury. Chest/Abdomen/Pelvis CT 04/20/22 18:36 IMPRESSION: 1. Ground-glass opacities in a predominantly central distribution, findings are suspicious for mild pulmonary edema versus pneumonitis. Recommend clinical correlation. Recommend followup chest imaging to insure resolution of these findings. 2. No evidence for acute traumatic injury in the chest. 3. Multiple small nodules in the left thyroid lobe are stable. The No follow-up is recommended.. 4. Incidental/nonacute findings are listed in the report. IMPRESSION: 1. No acute abnormality in the abdomen or pelvis. 2. No evidence for acute traumatic injury in the abdomen or pelvis. 3. Incidental/nonacute findings are listed in the report. Head CT 04/20/22 18:36 IMPRESSION: No acute intracranial abnormality. Laboratory Results WBC 8.1 10^3/uL (4.0-10.0) 04/20/22 18:42 RBC 4.64 10^6/uL (4.1-5.3) 04/20/22 18:42 Hgb 12.4 g/dL (11.5-15.3) 04/20/22 18:42 Hct 40.2 % (37.0-47.0) 04/20/22 18:42 MCV 86.6 fl (81-99) 04/20/22 18:42 MCH 26.7 pg (28.0-34.0) L 04/20/22 18:42 MCHC 30.8 g/dL (30.0-36.0) 04/20/22 18:42 RDW 14.2 % (12.1-15.1) 04/20/22 18:42 Plt Count 170 10^3/cmm (130-400) 04/20/22 18:42 MPV 12.1 fL (7.4-10.4) H 04/20/22 18:42 Neut % (Auto) 76.7 % 04/20/22 18:42 Lymph % (Auto) 12.7 % 04/20/22 18:42 [place] % (Auto) 6.1 % 04/20/22 18:42 Eos % (Auto) 3.9 % 04/20/22 18:42 Baso % (Auto) 0.4 % 04/20/22 18:42 Neut # (Auto) 6.18 10^3/uL (1.8-7.7) 04/20/22 18:42 Lymph # (Auto) 1.0 10^3/uL (0.8-4.8) 04/20/22 18:42 [place] # (Auto) 0.5 10^3/uL (0.2-0.9) 04/20/22 18:42 Eos # (Auto) 0.3 10^3/uL (0.0-0.8) 04/20/22 18:42 Baso # (Auto) 0.0 10^3/uL (0.0-0.1) 04/20/22 18:42 Nucleated RBC % (auto) 0 % 04/20/22 18:42 Nucleated RBCs # 0.0 /100WBC 04/20/22 18:42 Sodium 141 mmol/L (136-145) 04/20/22 18:42 Potassium 4.8 mmol/L (3.5-5.1) 04/20/22 18:42 Chloride 105 mmol/L (98-107) 04/20/22 18:42 Carbon Dioxide 25 mmol/L (22-29) 04/20/22 18:42 Anion Gap 15.8 (5-19) 04/20/22 18:42 BUN 45 mg/dL (8-23) H 04/20/22 18:42 Creatinine 1.5 mg/dL (0.5-0.9) H 04/20/22 18:42 GFR Calculation Not Reportable 04/20/22 18:42 Glucose 120 mg/dL (65-115) H 04/20/22 18:42 Calculated Osmolality 305 mOsm/kg (285-295) H 04/20/22 18:42 Calcium 9.3 mg/dL (8.5-10.5) 04/20/22 18:42 Total Bilirubin 0.2 mg/dL (0.15-1.2) 04/20/22 18:42 AST 21 U/L (0-32) 04/20/22 18:42 ALT 18 U/L (0-33) 04/20/22 18:42 Alkaline Phosphatase 26 U/L (35-105) L 04/20/22 18:42 Total Protein 6.6 g/dL (6.6-8.7) 04/20/22 18:42 Albumin 3.5 g/dL (3.5-5.2) 04/20/22 18:42 Globulin 3.1 g/dL (1.3-4.6) 04/20/22 18:42 Discharge Plan Discharge Patient Disposition: Home Clinical Impression: Fall, Head injuries, Contusion of forehead, Contusion of periorbital region, Forehead laceration Condition: Stable Prescriptions: No Action acetaminophen 650 mg Suppository 650 mg DE Q4H PRN (Reason: pain/fever) acetaminophen 500 mg Tablet 1,000 mg PO QID PRN (Reason: Pain) amiodarone 200 mg Tablet 200 mg PO DAILY diltiazem HCl 300 mg Capsule,Extended Release 24 Hr 300 mg PO DAILY bisacodyl 10 mg Suppository 10 mg DE DAILY PRN (Reason: Constipation) bisacodyl 5 mg Tablet,Delayed Release (Dr/Ec) 10 mg PO DAILY PRN (Reason: Constipation) Zyprexa 10 mg Tablet 10 mg PO QPM Xanax 0.5 mg Tablet 0.5 mg PO Q4H PRN (Reason: Anxiety) Xanax 0.5 mg Tablet 0.5 mg PO TID Miralax 17 gram/dose Powder 4 g PO QPM Zoloft 50 mg Tablet 50 mg PO DAILY apixaban 5 mg Tablet 5 mg PO BID ondansetron 4 mg tablet,disintegrating 4 mg PO Q8H PRN (Reason: nausea and vomiting) Qty: 15 0RF Discharge Orders: Discharge ED (Routine); Ordered 04/20/22 Ordered By: Magdaleno Goyal Discharge Diet: Usual diet Discharge Activity: Limit activity as instructed Patient Instructions: Care For Your Stitches (ED), [place] (ED), Contusion in Adults (ED), Head Laceration (ED) Activity Restrictions/Additional Instructions: Thank you for visiting the emergency department. You are seen and evaluated for fall with head injury. Your forehead laceration required repair with 5 stitches. I recommend removal of stitches in 5 to 7 days. Please keep the area clean and dry, do not get it wet for 24 hours and after that you may get it wet but do not soak it. Laboratory studies revealed mild dehydration, make sure that you are staying hydrated. CT of your head and neck do not reveal any acute traumatic injuries. There are nonspecific opacities in the lungs which do not require treatment at this time given absence of respiratory symptoms, recommend follow-up x-ray within 1 week to reevaluate. Otherwise significant degenerative changes exist. Return to the emergency department for uncontrolled bleeding with failure to control with direct pressure, evidence of infection, uncontrolled pain, or anything else that you are concerned about and feel needs emergency department evaluation. Coding Level of Care Code ED Digital Research Analyst for Angelica Verdin
--- NOTE | 2022-04-20 18:36 | CTR_ITS ---
PROCEDURE INFORMATION: Exam: CT Cervical Spine Without Contrast Exam date and time: 04/20/2022 7:21 PM Age: 81 years old Clinical indication: Injury or trauma; Fall; Blunt trauma; Injury date: 04/20/2022; Additional info: Trauma, AMS TECHNIQUE: Imaging protocol: Computed tomography of the cervical spine without contrast. Radiation optimization: All CT scans at this facility use at least one of these dose optimization techniques: automated exposure control; mA and/or kV adjustment per patient size (includes targeted exams where dose is matched to clinical indication); or iterative reconstruction. REPORTING DATA: Count of CT and Cardiac NM exams in prior 12 months: This patient has received 11 known CTs and 0 known cardiac nuclear medicine studies in the 12 months prior to the current study. COMPARISON: CT cervical spin wo con* [id number] 04/11/2022 9:01 PM RADIATION DOSE METRICS: Total DLP (mGy-cm): 417.27 FINDINGS: Tubes, catheters and devices: Probable left pacemaker wires partially seen. Bones/joints: Near anatomic alignment. No acute fracture. Multilevel degenerative changes are present. No severe spinal canal stenosis. Lungs: Lung apices are normal. Soft tissues: Unremarkable. CT/CT cervical spin wo con* [id number] IMPRESSION: No acute osseous injury.
--- NOTE | 2022-04-20 18:36 | CTR_ITS ---
PROCEDURE INFORMATION: Exam: CT Head Without Contrast Exam date and time: 04/20/2022 7:15 PM Age: 81 years old Clinical indication: Injury or trauma; Fall; Blunt trauma (contusions or hematomas); Consciousness not specified; Injury date: 04/20/2022; Additional info: Trauma, AMS TECHNIQUE: Imaging protocol: Computed tomography of the head without contrast. Radiation optimization: All CT scans at this facility use at least one of these dose optimization techniques: automated exposure control; mA and/or kV adjustment per patient size (includes targeted exams where dose is matched to clinical indication); or iterative reconstruction. REPORTING DATA: Count of CT and Cardiac NM exams in prior 12 months: This patient has received 11 known CTs and 0 known cardiac nuclear medicine studies in the 12 months prior to the current study. COMPARISON: CT head wo con* [id number] 04/11/2022 9:01 PM RADIATION DOSE METRICS: Total DLP (mGy-cm): 1105.68 FINDINGS: Brain: No acute infarct. No hemorrhage. Stable involutional changes of the brain. No mass effect. Cerebral ventricles: No ventriculomegaly. Paranasal sinuses: Visualized sinuses are unremarkable. No fluid levels. Mastoid air cells: Small bilateral mastoid effusions. Bones/joints: Unremarkable. No acute fracture. Soft tissues: Bifrontal scalp hematoma/lacerations are again present. CT/CT head wo con* [id number] IMPRESSION: No acute intracranial abnormality.
--- NOTE | 2022-04-20 18:36 | CTR_ITS ---
PROCEDURE INFORMATION: Exam: CT Chest With Contrast; Diagnostic Exam date and time: 04/20/2022 7:24 PM Age: 81 years old Clinical indication: Injury or trauma; Generalized; Blunt trauma (contusions or hematomas); Prior surgery; Surgery type: Pacer. Gb. Hysterectomy; Patient HX: Ar[facility] via EMS from [facility] for fall. Patient fell face first out of wheelchair onto floor. ; Additional info: Trauma, AMS TECHNIQUE: Imaging protocol: Diagnostic computed tomography of the chest with contrast. Sagittal and coronal reformatted images were created and reviewed. Radiation optimization: All CT scans at this facility use at least one of these dose optimization techniques: automated exposure control; mA and/or kV adjustment per patient size (includes targeted exams where dose is matched to clinical indication); or iterative reconstruction. Contrast material: OMNI 350; Contrast volume: 100 ml; Contrast route: INTRAVENOUS (IV); REPORTING DATA: Count of CT and Cardiac NM exams in prior 12 months: This patient has received 12 known CTs and 0 known cardiac nuclear medicine studies in the 12 months prior to the current study. COMPARISON: CT chest abdpel w/*[id number] 02/08/2022 10:51 PM RADIATION DOSE METRICS: Total DLP (mGy-cm): 1772.05 FINDINGS: Tubes, catheters and devices: There is a dual-lead cardiac pacer via left subclavian approach. Findings are stable. Thyroid: Multiple small nodules in the left thyroid lobe are stable, the largest measures 8.4 mm (series 4, image 8). Trachea: Tracheobronchial structures are patent. Lungs: Ground-glass opacities in a predominantly central distribution, findings are suspicious for mild pulmonary edema versus pneumonitis. Stable linear scarring in both lungs. No pulmonary parenchymal nodules or masses. Pleural spaces: No pneumothorax. No pleural effusion. Heart: Stable moderate enlargement of the heart. Coronary arteries: Stable moderate atherosclerotic calcification in the coronary arteries. Esophagus: The esophagus is unremarkable. Mediastinal space: No mediastinal hematoma. No pneumomediastinum. Lymph nodes: No lymphadenopathy. Vasculature: Stable moderate atherosclerotic changes in the visualized arteries. No evidence for aortic aneurysm or aortic dissection. Pulmonary arteries are unremarkable. Pulmonary veins are unremarkable. No extravasation of contrast from the thoracic vessels. Bones/joints: Degenerative changes in the spine and shoulders. No acute fracture. Soft tissues: No acute abnormality in the extrathoracic soft tissues. PROCEDURE INFORMATION: Exam: CT Abdomen And Pelvis With Contrast Exam date and time: 04/20/2022 7:24 PM Age: 81 years old Clinical indication: Injury or trauma; Generalized; Blunt trauma (contusions or hematomas); Prior surgery; Surgery type: Pacer. Gb. Hysterectomy; Patient HX: [facility] EMS [facility] for [facility]. Patient fell face first out of wheelchair onto floor. ; Additional info: Trauma, AMS TECHNIQUE: Imaging protocol: Computed tomography of the abdomen and pelvis with contrast. Sagittal and coronal reformatted images were created and reviewed. Radiation optimization: All CT scans at this facility use at least one of these dose optimization techniques: automated exposure control; mA and/or kV adjustment per patient size (includes targeted exams where dose is matched to clinical indication); or iterative reconstruction. Contrast material: OMNI 350; Contrast volume: 100 ml; Contrast route: INTRAVENOUS (IV); REPORTING DATA: Count of CT and Cardiac NM exams in prior 12 months: This patient has received 12 known CTs and 0 known cardiac nuclear medicine studies in the 12 months prior to the current study. COMPARISON: CT chest abdpel w/*[id number] 02/08/2022 10:51 PM RADIATION DOSE METRICS: Total DLP (mGy-cm): 1772.05 FINDINGS: Liver: The liver is unremarkable. Gallbladder and bile ducts: Stable findings consistent with a previous cholecystectomy. No biliary ductal dilatation. Pancreas: The pancreas is unremarkable. No pancreatic ductal dilatation. Spleen: The spleen is unremarkable. Adrenal glands: The right and left adrenal glands are unremarkable. Kidneys and ureters: The right kidney is unremarkable. Stable subcentimeter hypodense focus in the left kidney that is too small to characterize, however likely represents a small cyst. The right and left ureters are unremarkable. Stomach and bowel: Increased fecal content in the colon. Numerous diverticula in the descending colon and sigmoid colon. No evidence for diverticulitis. No acute abnormality in the small bowel. The stomach is collapsed, which can limit evaluation. No focal abnormality in the stomach otherwise. Appendix: Appendix not definitely visualized. No inflammatory changes in the pericecal region however. Intraperitoneal space: No free intraperitoneal air. No ascites. No loculated fluid collections to suggest an abscess. Vasculature: Stable mild atherosclerotic calcifications in the visualized arteries. No evidence for aortic aneurysm or aortic dissection. Hepatic veins, portal veins, splenic vein, and SMV are patent. Lymph nodes: No lymphadenopathy. Urinary bladder: The bladder is incompletely filled, which can limit evaluation. No focal abnormality in the bladder however. Reproductive: Stable changes consistent with a previous hysterectomy. The ovaries are not definitely visualized, not an expected in a postmenopausal female. This may be due to ovarian atrophy. Alternatively, the patient may have had a previous bilateral oophorectomy. Findings are stable. Bones/joints: Degenerative changes in the spine, sacroiliac joints, and hips. Soft tissues: No acute abnormality in the extra-abdominal soft tissues. CT/CT chest abdpel w/*[id number] IMPRESSION: 1. Ground-glass opacities in a predominantly central distribution, findings are suspicious for mild pulmonary edema versus pneumonitis. Recommend clinical correlation. Recommend followup chest imaging to insure resolution of these findings. 2. No evidence for acute traumatic injury in the chest. 3. Multiple small nodules in the left thyroid lobe are stable. The No follow-up is recommended.. 4. Incidental/nonacute findings are listed in the report. IMPRESSION: 1. No acute abnormality in the abdomen or pelvis. 2. No evidence for acute traumatic injury in the abdomen or pelvis. 3. Incidental/nonacute findings are listed in the report.
[2022-04-20 18:57] LABS: Basophils % 0.4 %; Eosinophils # 0.3 10^3/uL (0.0-0.8); Eosinophils % 3.9 %; Hematocrit 40.2 % (37.0-47.0); Hemoglobin 12.4 g/dL (11.5-15.3); Lymphocytes % 12.7 %; Mean Corpuscular HGB Conc 30.8 g/dL (30.0-36.0); Mean Corpuscular Hemoglobin 26.7 pg (28.0-34.0); Mean Corpuscular Volume 86.6 fl (81-99); Mean Platelet Volume 12.1 fL (7.4-10.4); Monocytes # 0.5 10^3/uL (0.2-0.9); Monocytes % 6.1 %; Neutrophils # 6.18 10^3/uL (1.8-7.7); Neutrophils % 76.7 %; Nucleated Red Blood Cells % 0 %; Platelet Count 170 10^3/cmm (130-400); Red Blood Count 4.64 10^6/uL (4.1-5.3); Red Cell Distribution Width 14.2 % (12.1-15.1); White Blood Count 8.1 10^3/uL (4.0-10.0)
--- NOTE | 2022-04-20 19:00 | ECG_ITS ---
[facility] Test Date: 2022-04-20 Pat Name: Delilah Adams Department: Room: Gender: Female Pocket Builder: : 1940 Requested By: Magdaleno Goyal Order Number: [id number] Ibeth MD: Valeriano Cleaning M.D. Measurements Intervals [place] Rate: 59 P: 240 SD: 199 QRS: -48 QRSD: 145 T: 14 QT: 495 QTc: 494 Interpretive Statements ELECTRONIC ATRIAL PACEMAKER INTRAVENTRICULAR CONDUCTION DELAY [130+ ms QRS DURATION] LATERAL MYOCARDIAL INFARCTION , OF INDETERMINATE AGE [40+ ms Q WAVE AND/OR ST/T ABNORMALITY IN I/aVL/V5/V6] Compared to ECG 04/11/2022 21:58:05 Intraventricular conduction delay now present Myocardial infarct finding now present Right bundle-branch block no longer present Left anterior fascicular block no longer present Electronically Signed On 04-21-2022 18:15:30 BOILERS INSPECTOR by Valeriano Cleaning M.D. [id number]
[2022-04-20 19:18] LABS: Alanine Aminotransferase 18 U/L (0-33); Albumin Level 3.5 g/dL (3.5-5.2); Alkaline Phosphatase 26 U/L (35-105); Anion Gap 15.8 (5-19); Aspartate Amino Transferase 21 U/L (0-32); Blood Urea Nitrogen 45 mg/dL (8-23); Calcium 9.3 mg/dL (8.5-10.5); Carbon Dioxide 25 mmol/L (22-29); Chloride 105 mmol/L (98-107); Globulin 3.1 g/dL (1.3-4.6); Glucose 120 mg/dL (65-115); Osmolality Calculated 305 mOsm/kg (285-295); Potassium 4.8 mmol/L (3.5-5.1); Sodium 141 mmol/L (136-145); Total Bilirubin 0.2 mg/dL (0.15-1.2); Total Protein 6.6 g/dL (6.6-8.7)
[2022-04-20] MEDS: iohexol 350 mg/mL 500 mL Btl (per mL) IV (19:30)
[2022-04-20] MEDS: tetanus-dipt-pertussis 0.5 mL SDV IM (19:41)
--- NOTE | 2022-04-27 17:25 | DCPLANNER ---
04.26. - patient called due to no primary care physician - patient resides at [facility]
== END 2022-04-20 22:13 | disposition home or self-care (01) ==
PROVIDERS: Emergency Provider Emergency Medicine
DX: S00.83XA Contusion of other part of head, initial encounter (principal); S00.11XA Contusion of right eyelid and periocular area, initial encounter; S01.81XA Laceration without foreign body of other part of head, initial encounter; I50.9 Heart failure, unspecified; F03.90 Unspecified dementia, unspecified severity, without behavioral disturbance, psychotic disturbance, mood disturbance, and anxiety; N18.9 Chronic kidney disease, unspecified; I48.91 Unspecified atrial fibrillation; Z79.01 Long term (current) use of anticoagulants; W19.XXXA Unspecified fall, initial encounter; Z23 Encounter for immunization
CPT/HCPCS: 12013; 36415; 70450; 70486; 71260; 72125; 74177; 80053; 85025; 90471; 90715; 93005; 99285; Q9967

== ENCOUNTER 2022-04-21 12:58 | Emergency (ER) | payer MEDICARE, SELFPAY ==
[2022-04-21] VITALS (9 sets, daily range): BP systolic 140; BP diastolic 53; PULSE 60–70; RESP 14–31; TEMP 36.8; O2SAT 95
--- NOTE | 2022-04-21 12:59 | CT_ITS ---
WS: [id number] CT HEAD TECHNIQUE: Noncontrast CT of the head obtained from the skullbase to the vertex. CLINICAL INFORMATION: fall, ams COMPARISON: CT April 20, 2022 DLP: 1124.[address] scans at [facility] use at least one of these dose optimization techniques: automated e xposure control; mA and/or kV adjustment per patient size (includes targeted exams where dose is matc hed to clinical indication); or iterative reconstruction. FINDINGS: No evidence of intracranial hemorrhage or mass effect. Ventricular system and basal cisterns are mann nt. Moderate small vessel changes with moderate parenchymal volume loss. Advanced atrophy of the temp oral lobes. No extra-axial fluid collections. No evidence of mass or mass effect. Vascular calcificat ion. Paranasal sinuses and mastoid air cells are well aerated. . Bilateral frontal soft tissue hematoma. N o visualized fractures. CT/CT head wo con* [id number] IMPRESSION: 1. No evidence of intracranial hemorrhage or mass effect. 2. Bilateral frontal soft tissue hematoma. 3. No acute intracranial findings.
--- NOTE | 2022-04-21 12:59 | W.ED.AMS ---
HPI - Altered Mental Status General: Chief Complaint: Altered Mental Status Stated Complaint: LETHARGIC Time Seen by Provider: 04/21/22 12:59 Limitations: altered mental status History of Present Illness: Ms. Adams is a 81-year-old lady who resides at a senior care and presented last night due to fall with head laceration presenting due to worsening mental status apparently and nausea and vomiting. The patient herself provides essentially no meaningful history. She denies complaints. Review of Systems General: Reports: ROS unobtainable due to medical condition PFSH ED PFSH: Medical History Acute hypoxemic respiratory failure Atrial fibrillation CHF exacerbation Congestive heart failure with left ventricular systolic dysfunction Delirium Dementia DNR (do not resuscitate) Pneumonia due to COVID-19 virus Social History Smoking and tobacco status: never smoked Alcohol intake: never Physical Exam Const: COMMON NORMALS: alert GENERAL APPEARANCE: cooperative and well developed HENMT: COMMON NORMALS: normocephalic HEAD & SCALP: normocephalic THROAT: posterior oropharynx normal OTHER: Head contusion. Laceration appears without evidence of infection of repair. No mendez signs or raccoon eyes. No hemotympanum. No otorrhea or rhinorrhea. Jaw alignment normal. Dentition baseline. No obvious bony step-offs. No septal hematoma. No evidence of ocular entrapment. Eye: COMMON NORMALS: conjunctivae normal CONJUNCTIVA: Yes conjunctivae normal SCLERA: sclerae normal Neck/C-Spine: COMMON NORMALS: supple GENERAL: Yes trachea midline Resp: COMMON NORMALS: clear to auscultation bilaterally EFFORT & INSPECTION: Yes able to speak in complete sentences AUSCULTATION: clear to auscultation bilaterally Cardio: COMMON NORMALS: regular rate and regular rhythm RATE: regular rate RHYTHM: regular rhythm GI: COMMON NORMALS: Soft to palpation PALPATION: Yes Soft to palpation and No Tenderness to palpation present (GI) PERCUSSION: normal to percussion Extremity: GENERAL: Yes normal exam except as noted and No edema Neuro: COMMON NORMALS: moves all extremities SENSORIUM/ORIENTATION: Yes alert and Yes Orientation impaired Psych: COMMON NORMALS: mental status grossly normal and Normal thought process present THOUGHT PROCESS: Normal thought process present Course Vital Signs: Vital signs: Vital Signs Temperature 98.2 F 04/21/22 13:00 Pulse Rate 61 04/21/22 17:00 Respiratory Rate 19 H 04/21/22 17:00 Blood Pressure 140/53 04/21/22 13:35 Pulse Oximetry 95 04/21/22 13:35 Oxygen Delivery Me thod 04/21/22 13:00 MDM - Altered Mental Status Medical Decision Making 81-year-old lady presenting from senior care with concern over mental status change and decreased activity. She does have a history of fall with head injury. Perhaps nausea vomiting today. The patient herself provides very limited history, no focal neurologic deficits appreciated on clinical exam. EKG notable for sinus rhythm with interventricular conduction delay, no STEMI. Labs with no leukocytosis, normal hemoglobin. Metabolic panel similar to baseline with CKD. UTI present. Repeat head imaging without acute intracranial pathology. Patient treated with fluids, antiemetic, antibiotics for UTI. I believe that she can appropriately take oral medications and is satisfactory for outpatient management with strict return precautions. The results of ED evaluation were discussed with the patient including prescriptions and/or symptomatic cares (if applicable) including appropriate and responsible use, followup plan, and return precautions. The patient verbalized understanding and felt safe for discharge. Medical Records I reviewed the patient's medical records. Lab Data I reviewed the patient's lab results. 04/21/22 12:28 04/21/22 12:[address] 04/21/22 12:59 IMPRESSION: 1. No evidence of intracranial hemorrhage or mass effect. 2. Bilateral frontal soft tissue hematoma. 3. No acute intracranial findings. Laboratory Results WBC 10.4 10^3/uL (4.0-10.0) H 04/21/22 12:28 RBC 5.09 10^6/uL (4.1-5.3) 04/21/22 12:28 Hgb 13.7 g/dL (11.5-15.3) 04/21/22 12:28 Hct 44.1 % (37.0-47.0) 04/21/22 12:28 MCV 86.6 fl (81-99) 04/21/22 12:28 MCH 26.9 pg (28.0-34.0) L 04/21/22 12:28 MCHC 31.1 g/dL (30.0-36.0) 04/21/22 12:28 RDW 14.3 % (12.1-15.1) 04/21/22 12:28 Plt Count 152 10^3/cmm (130-400) 04/21/22 12:28 MPV 11.9 fL (7.4-10.4) H 04/21/22 12:28 Neut % (Auto) 94.9 % 04/21/22 12:28 Lymph % (Auto) 1.8 % 04/21/22 12:28 [place] % (Auto) 2.5 % 04/21/22 12:28 Eos % (Auto) 0.2 % 04/21/22 12:28 Baso % (Auto) 0.2 % 04/21/22 12:28 Neut # (Auto) 9.91 10^3/uL (1.8-7.7) H 04/21/22 12:28 Lymph # (Auto) 0.2 10^3/uL (0.8-4.8) L 04/21/22 12:28 [place] # (Auto) 0.3 10^3/uL (0.2-0.9) 04/21/22 12:28 Eos # (Auto) 0.0 10^3/uL (0.0-0.8) 04/21/22 12:28 Baso # (Auto) 0.0 10^3/uL (0.0-0.1) 04/21/22 12:28 Nucleated RBC % (auto) 0 % 04/21/22 12: Nucleated RBCs # 0.0 /100WBC 04/21/22 12:28 Sodium 142 mmol/L (136-145) 04/21/22 12:28 Potassium 5.0 mmol/L (3.5-5.1) 04/21/22 12:28 Chloride 105 mmol/L (98-107) 04/21/22 12:28 Carbon Dioxide 23 mmol/L (22-29) 04/21/22 12:28 Anion Gap 19.0 (5-19) 04/21/22 12:28 BUN 46 mg/dL (8-23) H 04/21/22 12:28 Creatinine 1.5 mg/dL (0.5-0.9) H 04/21/22 12:28 GFR Calculation Not Reportable 04/21/22 12:28 Glucose 153 mg/dL (65-115) H 04/21/22 12:28 Calculated Osmolality 309 mOsm/kg (285-295) H 04/21/22 12:28 Calcium 8.8 mg/dL (8.5-10.5) 04/21/22 12:28 Urine Color Yellow (Yellow) 04/21/22 14:00 Urine Appearance Hazy (CLEAR) A 04/21/22 14:00 Urine pH 8 (5-7) H 04/21/22 14:00 Ur Specific Lena 1.010 (1.005-1.030) 04/21/22 14:00 Urine Protein Neg (Negative) 04/21/22 14:00 Urine Glucose (UA) Norm (Normal) 04/21/22 14:00 Urine Ketones Negative (Negative) 04/21/22 14:00 Urine Blood 2+ (Negative) H 04/21/22 14:00 Urine Nitrate Positive (Negative) H 04/21/22 14:00 Urine Bilirubin 1+ (Negative) H 04/21/22 14:00 Prot Sulfosalicylic Acd Negative (Negative) 04/21/22 14:00 Urine Urobilinogen Neg mg/dL (Negative) 04/21/22 14:00 Ur Leukocyte Esterase Trace (Negative) H 04/21/22 14:00 Urine RBC 5-10 /hpf (0-2) H 04/21/22 14:00 Urine WBC 15-25 /hpf (0-5) H 04/21/22 14:00 Ur Squamous Epith Cells Rare /hpf (0-5) 04/21/22 14:00 Amorphous Sediment Not Reportable 04/21/22 14:00 Urine Bacteria 3+ /hpf (NONE) H 04/21/22 14:00 Discharge Plan Discharge Patient Disposition: Home Clinical Impression: Acute UTI, CKD (chronic kidney disease) Condition: Stable Prescriptions: New ondansetron 4 mg tablet,disintegrating 4 mg PO Q8H PRN (Reason: nausea and vomiting) Qty: 15 0RF No Action acetaminophen 650 mg Suppository 650 mg KY Q4H PRN (Reason: pain/fever) acetaminophen 500 mg Tablet 1,000 mg PO QID PRN (Reason: Pain) amiodarone 200 mg Tablet 200 mg PO DAILY diltiazem HCl 300 mg Capsule,Extended Release 24 Hr 300 mg PO DAILY bisacodyl 10 mg Suppository 10 mg [place] DAILY PRN (Reason: Constipation) bisacodyl 5 mg Tablet,Delayed Release (Dr/Ec) 10 mg PO DAILY PRN (Reason: Constipation) Zyprexa 10 mg Tablet 10 mg PO QPM Xanax 0.5 mg Tablet 0.5 mg PO Q4H PRN (Reason: Anxiety) Xanax 0.5 mg Tablet 0.5 mg PO TID Miralax 17 gram/dose Powder 4 g PO QPM Zoloft 50 mg Tablet 50 mg PO DAILY apixaban 5 mg Tablet 5 mg PO BID Discharge Orders: Discharge ED (Routine); Ordered 04/21/22 Ordered By: Magdaleno Goyal Discharge Diet: Usual diet Discharge Activity: Resume usual activity Patient Instructions: Chronic Kidney Disease (ED), Urinary Tract Infection in Older Adults (ED) Activity Restrictions/Additional Instructions: Thank you for visiting the emergency department. You were seen and evaluated for nausea, vomiting, reported mental status/activity change. The most likely cause of your symptoms is urinary tract infection. This will be treated with antibiotics. Given other laboratory findings and overall clinical exam I do not feel that this needs to be managed in the hospital. I believe antibiotics can safely be administered in the senior care. Please follow-up with your primary care. Return to the emergency department for worsening symptoms, inability to tolerate medications, fevers, tachycardia, low blood pressure, or anything else that you are concerned about and feel needs emergency department evaluation. Please continue discharge instructions given previously secondary to fall. Coding Level of Care Code ED Executive Receptionist for Angelica Verdin
--- NOTE | 2022-04-21 13:36 | ECG_ITS ---
[facility] Test Date: 2022-04-21 Pat Name: Delilah Adams Department: Room: Gender: Female Egg Caser: : 1940 Requested By: Magdaleno Goyal Order Number: [id number] Ibeth MD: Valeriano Cleaning M.D. Measurements Intervals [place] Rate: 60 P: 91 DC: 160 QRS: -57 QRSD: 141 T: -21 QT: 475 QTc: 478 Interpretive Statements SINUS RHYTHM Right bundle branch block Left anterior fascicular block LATERAL MYOCARDIAL INFARCTION , OF INDETERMINATE AGE [40+ ms Q WAVE AND/OR ST/T ABNORMALITY IN I/aVL/V5/V6] Compared to ECG 04/20/2022 19:00:27 Atrial-paced complex(es) or rhythm no longer present Myocardial infarct finding still present Electronically Signed On 04-21-2022 18:18:33 LACE PAPER MACHINE OPERATOR by Valeriano Cleaning M.D. [id number]
[2022-04-21 13:45] LABS: Basophils % 0.2 %; Eosinophils % 0.2 %; Hematocrit 44.1 % (37.0-47.0); Hemoglobin 13.7 g/dL (11.5-15.3); Lymphocytes # 0.2 10^3/uL (0.8-4.8); Lymphocytes % 1.8 %; Mean Corpuscular HGB Conc 31.1 g/dL (30.0-36.0); Mean Corpuscular Hemoglobin 26.9 pg (28.0-34.0); Mean Corpuscular Volume 86.6 fl (81-99); Mean Platelet Volume 11.9 fL (7.4-10.4); Monocytes # 0.3 10^3/uL (0.2-0.9); Monocytes % 2.5 %; Neutrophils # 9.91 10^3/uL (1.8-7.7); Neutrophils % 94.9 %; Nucleated Red Blood Cells % 0 %; Platelet Count 152 10^3/cmm (130-400); Red Blood Count 5.09 10^6/uL (4.1-5.3); Red Cell Distribution Width 14.3 % (12.1-15.1); White Blood Count 10.4 10^3/uL (4.0-10.0)
[2022-04-21 13:59] LABS: Blood Urea Nitrogen 46 mg/dL (8-23); Calcium 8.8 mg/dL (8.5-10.5); Carbon Dioxide 23 mmol/L (22-29); Chloride 105 mmol/L (98-107); Glucose 153 mg/dL (65-115); Osmolality Calculated 309 mOsm/kg (285-295); Sodium 142 mmol/L (136-145)
[2022-04-21 14:30] LABS: Urine Appearance Hazy (CLEAR); Urine Color Yellow (Yellow); pH Urine 8 (5-7)
[2022-04-21 14:31] LABS: Add Urine Microscopic? YES; Bacteria Urine 3+ /hpf; Bilirubin Urine 1+ (Negative); Blood Urine 2+ (Negative); Glucose Urine UA Norm (Normal); Ketones Urine Negative (Negative); Leukocyte Esterase Urine Trace (Negative); Nitrate Urine Positive (Negative); Protein Urine Neg (Negative); Squamous Epithelial Cell Urine RARE /hpf (0-5); Sulfosalicylic Acid Urine Negative (Negative); Urobilinogen Urine Neg (Negative); WBC Urine 15-25 /hpf (0-5)
[2022-04-21 14:32] LABS: Add Urine Culture? Yes
[2022-04-21] MEDS: cefTRIAXone 1,000 MG in sodium chloride 0.9% (plus) 50 ML 100 MG IV (15:05)
[2022-04-21] MEDS: ondansetron 2 mg/ML SDV 2 mL 4 MG IVP (15:06)
[2022-04-21] MEDS: sodium chloride 0.9% 500 ML IV (15:06)
== END 2022-04-21 17:09 | disposition home or self-care (01) ==
PROVIDERS: Emergency Provider Emergency Medicine; PCP Nurse Practitioner Family
DX: N39.0 Urinary tract infection, site not specified (principal); N18.9 Chronic kidney disease, unspecified; I50.9 Heart failure, unspecified; F03.90 Unspecified dementia, unspecified severity, without behavioral disturbance, psychotic disturbance, mood disturbance, and anxiety
CPT/HCPCS: 36415; 51701; 70450; 80048; 81001; 85025; 87040; 87077; 87086; 87186; 93005; 96365; 96375; 99285; J0696; J2405; J7040